=== PATIENT | female | born 1960 | race Caucasian/White ===

== ENCOUNTER 2023-06-17 08:07 | Observation (INO) | payer MEDICARE, MEDICAID, SELFPAY ==
[2023-06-17] VITALS (10 sets, daily range): BP systolic 100–138; BP diastolic 40–82; PULSE 64–90; RESP 14–18; TEMP 36.8–36.9; O2SAT 94–99; BMI 26.6; BMI 25.8
--- NOTE | 2023-06-17 08:13 | RAD_ITS ---
STUDY: X-RAY CHEST REASON FOR EXAM: Female, 63 years old. Chest pain TECHNIQUE: Single AP portable view of the chest. COMPARISON: None. FINDINGS: EKG electrodes are seen. The lungs are clear and expanded. There is no demonstrated pleural abnormality. Normal size heart. Normal mediastinum and sindhu. Normal visualized pulmonary arteries. There is atherosclerotic calcification of the aortic arch with tortuosity. Normal visualized thoracic spine. The patient is status post laminectomy and fusion in the cervical spine. There is no demonstrated abnormality of the visualized soft tissue structures of the upper abdomen. RAD/Chest 1 View (Portable) IMPRESSION: No acute abnormality is seen. Electronically Signed: Tian Ansari MD at 10:07 EDT ,
--- NOTE | 2023-06-17 08:14 | EX.ED.DYSGE1 ---
HPI History of Present Illness Chief Complaint: General Illness [facility] Medical History (Updated 06/17/23 @ 08:26 by Conchita Rasmussen) Anxiety Chronic back pain Chronic neck pain COPD (chronic obstructive pulmonary disease) Depression Hx of renal calculi Home Medications albuterol sulfate 2.5 mg/3 mL (0.083 %) solution for nebulization 2.5 mg inhalation Q6H PRN SHORTNESS OF BREATH/WHEEZING 06/17/23 [History Last Taken Unknown] albuterol sulfate 90 mcg/actuation aerosol inhaler 2 puff inhalation Q4H PRN SHORTNESS OF BREATH/WHEEZING 06/17/23 [History Last Taken Unknown] budesonide-formoterol HFA 160 mcg-4.5 mcg/actuation aerosol inhaler (Symbicort) 1 puff inhalation Q12H SHORTNESS OF BREATH 06/17/23 [History Last Taken Unknown] bupropion HCl 150 mg 24 hr tablet, extended release 150 mg PO DAILY DEPRESSION 06/17/23 [History Last Taken Unknown] celecoxib 100 mg capsule 100 mg PO TID ANTI-INFLAMMATORY 06/17/23 [History Last Taken Unknown] citalopram 20 mg tablet 20 mg PO DAILY DEPRESSION 06/17/23 [History Last Taken Unknown] dapagliflozin propanediol 10 mg tablet (Farxiga) 10 mg PO DAILY BLOOD SUGARS 06/17/23 [History Last Taken Unknown] fenofibrate nanocrystallized 48 mg tablet 48 mg PO DAILY CHOLESTEROL 06/17/23 [History Last Taken Unknown] insulin glargine 100 unit/mL (3 mL) subcutaneous pen (Lantus Solostar U-100 Insulin) unit subcut 06/17/23 [History Last Taken Unknown] losartan 50 mg tablet 50 mg PO DAILY BLOOD PRESSURE 06/17/23 [History Last Taken Unknown] metformin 1,000 mg tablet 1,000 mg PO BID BLOOD SUGARS 06/17/23 [History Last Taken Unknown] omeprazole 20 mg capsule,delayed release 20 mg PO DAILY ACID REFLUX 06/17/23 [History Last Taken Unknown] simvastatin 10 mg tablet 10 mg PO DAILY CHOLESTEROL 06/17/23 [History Last Taken Unknown] tizanidine 4 mg tablet 4 mg PO Q8H MUSCLE SPASMS 06/17/23 [History Last Taken Unknown] Allergy/AdvReac Type Severity Reaction Status Date / Time codeine Allergy Intermediate Rash Verified 06/17/23 08:28 Sulfa (Sulfonamide Allergy Rash Verified 06/17/23 08:28 Antibiotics) Family History (Updated 06/17/23 @ 08:27 by Conchita Rasmussen) Other Back pain with history of spinal surgery Social History Smoking Status: Current every day smoker tobacco type: cigarettes EXAM Physical Exam Const Vital Signs: 06/17/23 08:10 06/17/23 08:15 06/17/23 09:02 Temperature 98.4 F 98.4 F Temperature Source Oral Oral Pulse Rate 76 73 Respiratory Rate 18 18 Respiratory Pattern Normal Blood Pressure 123/52 H 134/61 H Blood Pressure Mean 75 85 Pulse Ox 96 99 Oxygen Delivery Method Room Air Room Air 06/17/23 10:23 Temperature Temperature Source Pulse Rate 90 Respiratory Rate 18 Respiratory Pattern Blood Pressure 100/62 Blood Pressure Mean 74 Pulse Ox 99 Oxygen Delivery Method Room Air MDM MDM MDM Narrative Medical decision making narrative: HISTORY OF PRESENT ILLNESS: 63-year-old female here with concern for acute stroke. Per EMS patient was found to have abrupt change in mental status and left-sided weakness. Per the patient she has had left upper arm sensory changes for the last 48 hours. States she has had left-sided facial drooping for months. States she thought the left-sided upper extremity sensory changes will go away but have not. She also complains of headache, chronic neck pain, chest pain, shortness of breath, abdominal pain, nausea but no vomiting. No bleeding diathesis noted Spoke to Miladis KEN. Notes patient was sweating, almost went down. Notes the patient had slurred speech. Notes blood glucose at the time was 133. She notes the patient complained of decreased chemical applicator strength. the other day, last week, Notes pt had COVID last week. REVIEW OF SYSTEMS: Pertinent positives: Left-sided weakness, headache, chronic neck pain, chest pain, shortness of breath, abdominal pain, nausea Pertinent negatives: Diarrhea, vaginal bleeding or bleeding diathesis PHYSICAL EXAM: Nursing triage notes reviewed, Vital signs reviewed Constitutional: please see mdm HENT: MMM Eyes: Pupils equal round and reactive to light, Extraocular muscles intact Neck: No stridor, no JVD, full neck ROM Lungs: Clear to auscultation, No wheezing or rales. No increased work of breathing, no conversational dyspnea, no accessory muscle use, no nasal flaring. No respiratory distress noted Heart: Regular rate and rhythm, No murmurs, No rubs and No gallops, 2+ distal pulses (radial, femoral, posterior tibial) in all extremities Abdomen: Soft, there is no tenderness, rigidity, rebound or guarding, no obvious peritoneal signs, no palpable pulsatile abdominal masses, no auscultated abdominal bruit : No CVAT Extremities: No edema Neuro: alert, oriented to person place and time, sided facial droop, decree sensation left upper extremity compared to right, no ataxia, no visual field deficits, no obvious slurred speech, no obvious incoordination. Chief 2 for left-sided facial droop andsensory change left upper extremity. Skin: No rash or lesions noted MEDICAL DECISION MAKING: Chief Complaint: Left-sided weakness External records reviewed: No recent ED visits or hospitalizations noted in the chart was i Factors affecting care: Per long-term records, COPD, chronic back pain, diabetes, CKD, status post pacemaker, hypertension, dementia, depression Social determinants of health: custodial resident History obtained from others: EMS, long-term Consults: Internal Medicine MDM Narrative: Was initially hemodynamically stable, afebrile, nontoxic-appearing. Neurologic exam had deficits in the chart in terms of left-sided facial drooping, left upper arm sensory change. Patient was initially endorsed to me by prehospital report as acute neurologic deficits. We activated a code stroke protocol immediately. On arrival patient's last known well was in December between 6 months and 48 hours ago. Stroke team was downgraded as such she is not a candidate for tNK or thrombectomy. I considered the following differential diagnosis: TIA, CVA, focal seizure, metabolic encephalopathy, infectious cephalopathy, ACS, arrhythmia, anemia ICH, ALL IMAGES (IF OBTAINED) HAVE BEEN PERSONALLY REVIEWED AND INTERPRETED BY MYSELF. EKG with normal sinus rhythm, normal axis, normal intervals, no STEMI CBC without leukocytosis, severe anemia, no thrombocytopenia. BMP without significant [place] normalities, there is no anion gap to suggest endorgan hypoperfusion, LFTs show no evidence of hepatobiliary pathology. Troponin is negative, no evidence of myocardial ischemia Lipase is wnl indicating no pancreatic inflammation. CT scan of the head, abdomen pelvis shows no acute abnormalities COVID and flu test is negative I have personally reviewed the patient's chest x-ray. Chest x-ray is unremarkable for pulmonary edema, pneumothorax, pneumonia or focal cardiopulmonary abnormality. Urinalysis is pending at this time The synthesis of the patient's history, physical, vital signs, labs images are concerning for CVA/TIA as well as arrhythmia or other cardiac event. Given her advanced age, several contributory medical problems including diabetes, hyperlipidemia, hypertension I felt the patient be admitted for observation, MRI telemetry monitoring. Discussed this with Dr. Thomas who accepted the patient's case to the PCU. The patient and/or family, caregivers express understanding. The patient and/or family, caregivers agrees with the plan. Shared decision making: I will have a discussion with the patient and or visitors regarding risk/benefits of further testing or admission. They will be made aware of of the risk/benefits inherent in this decision they will be given the opportunity to voice understanding. Total critical care time today provided was at least 0 minutes. This excludes separately billable procedures. Critical care time (if documented) is secondary to the patient having high probability of clinically significant/life threatening deterioration in the patient's condition which required my urgent intervention. Impression: 1. Near syncope 2. Left-sided facial droop 3. Decreased sensation 4. History of hypertension 5. History of type 2 diabetes 6. History of hyperlipidemia Dispo: Med Lab Data Labs: Laboratory Results - last 24 hr 06/17/23 08:20 WBC 5.2 RBC 4.24 Hgb 12.7 Hct 39.7 MCV 93.6 MCH 30.0 MCHC 32.0 RDW Std Deviation 46.1 H RDW Coeff of Elo 13.5 Plt Count 259 MPV 9.6 Immature Gran % (Auto) 0.400 Neut % (Auto) 46.9 L Lymph % (Auto) 39.7 [place] % (Auto) 7.7 Eos % (Auto) 4.1 Baso % (Auto) 1.2 H Absolute Neuts (auto) 2.4 Absolute Lymphs (auto) 2.05 Nucleated RBC % 0 Sodium 142 Potassium 4.4 Chloride 112 H Carbon Dioxide 26.0 Anion Gap 4 L BUN 26 H Creatinine 1.15 H Estim Creat Clear Calc 46.66 Est GFR (MDRD) Af Amer 61 Est GFR (MDRD) Non-Af 51 L BUN/Creatinine Ratio 22.6 H Glucose 141 H Calcium 9.4 Total Bilirubin 0.50 Direct Bilirubin 0.14 AST 16 ALT 20 Alkaline Phosphatase 63 Troponin I High Sens 5 B-Natriuretic Peptide 21.6 Total Protein 7.3 Albumin 3.9 Globulin 3.4 Lipase 46 Radiography Diagnostic Testing: Clinical Impression(s) from Imaging Studies Chest X-Ray 06/17/23 08:13 IMPRESSION: No acute abnormality is seen. Electronically Signed: Tian Ansari MD at 10:07 EDT , Abdomen/Pelvis CT 06/17/23 09:06 IMPRESSION: Status post cholecystectomy. Nonobstructive calculus in the midpole of the right kidney. Electronically Signed: Tian Ansari MD at 10:06 EDT , Brain CT 06/17/23 09:06 IMPRESSION: Chronic involutional changes of the brain. Electronically Signed: Tian Ansari MD at 9:54 EDT , Discharge Plan Triage Chief Complaint: General Illness Other Complaint: Stroke Alert ED Provider: Jed Maurer Dx/Rx/DC Orders Prescriptions: No Action losartan 50 mg tablet 50 mg PO DAILY albuterol sulfate 2.5 mg /3 mL (0.083 %) solution for nebulization 2.5 mg inhalation Q6H PRN (Reason: SHORTNESS OF BREATH/WHEEZING ) tizanidine 4 mg tablet 4 mg PO Q8H simvastatin 10 mg tablet 10 mg PO DAILY citalopram 20 mg tablet 20 mg PO DAILY metformin 1,000 mg tablet 1,000 mg PO BID omeprazole 20 mg capsule,delayed release(DR/EC) 20 mg PO DAILY albuterol sulfate 90 mcg/actuation HFA aerosol inhaler 2 puff INHALATION Q4H PRN (Reason: SHORTNESS OF BREATH/WHEEZING ) celecoxib 100 mg capsule 100 mg PO TID bupropion HCl 150 mg tablet extended release 24 hr 150 mg PO DAILY fenofibrate nanocrystallized 48 mg tablet 48 mg PO DAILY budesonide-formoterol [Symbicort] 160-4.5 mcg/actuation HFA aerosol inhaler 1 puff INHALATION Q12H insulin glargine [Lantus Solostar U-100 Insulin] 100 unit/mL (3 mL) insulin pen SUBCUT Farxiga 10 mg tablet 10 mg PO DAILY Primary Care Provider: Geraldine Jiménez [employer] Referrals: Geraldine Jiménez [employer] T[employer], [facility] [facility] [Primary Care Provider] -
[2023-06-17 08:23] LABS: Absolute Lymphocyte Count 2.05 X10^3/uL (0.83-4.51); Absolute Neutrophil Count 2.4 X10^3/uL (2.0-7.7); Basophil# 0.06 X10^3/uL; Basophil% 1.2 % (0-1); Eosinophil# 0.21 X10^3/uL; Eosinophils% 4.1 % (0-5); Hematocrit 39.7 % (37-47); Hemoglobin 12.7 g/dL (12.0-15.0); Lymphocyte # 2.05 X10^3/ul (0.83-4.51); Lymphocyte % 39.7 % (19-41); Mean Corpuscular Volume 93.6 fL (81-99); Mean Platelet Vol. 9.6 fl (6.2-12.0); Monocyte% 7.7 % (0-10); NRBC Flagged by Analyzer 0 % (0-5); Neutrophil # 2.43 X10^3/uL (2.7-7.7); Neutrophil % 46.9 % (47-70); Platelet Count 259 K/mm3 (150-450); RBC Distribution Width CV 13.5 % (11.6-14.6); RBC Distribution Width SD 46.1 fl (35.1-43.9); Red Blood Count 4.24 M/mm3 (4.2-5.4); White Blood Count 5.2 K/mm3 (4.4-11.0)
[2023-06-17] MEDS: 0.9% Normal Saline (500mL Bag) 500 ML 1000 ML IV (08:36)
[2023-06-17 08:41] LABS: AST(SGOT) 16 U/L (15-37); Alanine Aminotransfer ALT/SGPT 20 U/L (13-56); Albumin, Serum 3.9 g/dL (3.2-5.0); Alkaline Phosphatase 63 U/L (45-117); Anion Gap 4 (5-15); BUN 26 mg/dL (7-18); BUN/Creat Ratio 22.6 RATIO (10-20); Bilirubin, Direct 0.14 mg/dL (0.00-0.30); Calcium,Total 9.4 mg/dL (8.5-10.1); Chloride 112 mmol/L (98-107); Creatinine, Serum 1.15 mg/dL (0.55-1.02); EST Glomerular Filtration Rate 51 mL/min (>60); Est Glom Filt Rate - Afr Amer 61 mL/min (>60); Estimated Creatinine Clearance 46.66 ml/min; Globulin 3.4 g/dL (2.2-4.2); Glucose 141 mg/dL (74-106); Lipase 46 U/L (13-75); Potassium 4.4 mmol/L (3.5-5.1); Protein, Total 7.3 g/dL (6.4-8.2); Sodium Level 142 mmol/L (136-145); Troponin-I HS 5 pg/mL (3.0-54.0)
[2023-06-17 09:02] LABS: BNP,B-Type NATRIURETIC PEPTIDE 21.6 pg/mL (0-100)
--- NOTE | 2023-06-17 09:06 | CT_ITS ---
STUDY: CT ABDOMEN AND PELVIS WITHOUT CONTRAST REASON FOR EXAM: Female, 63 years old. Abdominal pain RADIATION DOSAGE (If Supplied By Facility): CTDIvol = ( 8.68 ) mGy, DLP = ( 431.53 ) mGycm TECHNIQUE: Transaxial images were obtained from the dome of the diaphragm to the symphysis pubis without oral contrast, and without intravenous contrast. Sagittal and coronal images were reconstructed. Individualized dose optimization techniques were used for this CT. COMPARISON: None. FINDINGS: The visualized lung bases are unremarkable. Coronary artery calcification. Normal liver. There are surgical clips in the gallbladder fossa consistent with a prior cholecystectomy. Normal spleen. Normal pancreas. Normal bilateral adrenal glands. Is a 3 mm nonobstructive calculus in the midpole of the right kidney. There is a 1.8 cm cyst in the posterior aspect of the left kidney. Normal visualized stomach. Normal small intestine. Normal colon. The appendix is visualized and appears normal. There is diffuse atherosclerotic calcification of the abdominal aorta and its major visceral branches, without a demonstrated aneurysm. Normal inferior vena cava. Normal retroperitoneum. Normal urinary bladder. There is a right-sided inguinal hernia containing adipose tissue. Disc space narrowing and disc degeneration at the L4-L5 level with a grade 1 anterolisthesis of L4 on L5. CT/Abdomen/Pelvis without Cont IMPRESSION: Status post cholecystectomy. Nonobstructive calculus in the midpole of the right kidney. Electronically Signed: Tian Ansari MD at 10:06 EDT ,
--- NOTE | 2023-06-17 09:06 | CT_ITS ---
STUDY: CT BRAIN WITHOUT CONTRAST REASON FOR EXAM: Female, 63 years old. Left sided facial droop RADIATION DOSAGE (If Supplied By Facility): CTDIvol = ( 44.99 ) mGy, DLP = ( 863.60 ) mGycm TECHNIQUE: Transaxial CT imaging of the brain was performed without administration of intravenous contrast material. Individualized dose optimization techniques were used for this CT. COMPARISON: No relevant priors. FINDINGS: Normal soft tissue structures. Normal calvarium. There is mild cerebral atrophy with widening of the extra-axial spaces and ventricular dilatation. There are areas of decreased attenuation within the white matter tracts of the supratentorial brain, consistent with microvascular disease changes. Normal basal ganglia and thalami. Normal brainstem. Normal cerebellum. There is no intracranial hemorrhage. There are no findings of an acute ischemic infarction. Normal visualized paranasal sinuses. CT/Brain/Head without Contrast IMPRESSION: Chronic involutional changes of the brain. Electronically Signed: Tian Ansari MD at 9:54 EDT ,
--- NOTE | 2023-06-17 11:05 | PCM.HP.STD ---
[facility] Date of Admission: 06/17/23 Date of Service: 06/17/23 Chief Complaint: Confusion, near syncope HPI Narrative DOMINIK SCHULER, is a 63 F with a history of chronic pain, tobacco use, COPD, GERD, urinary disorder with bladder stimulator, hypertension, kidney stones, diabetes, depression, multiple back and neck surgeries who presented to [facility] 06/17/2023 from her assisted living facility for an episode of near syncope and possibly slurred speech. Patient alert and answering questions but inconsistent historian. Per report she had been at SNF and had an episode where she was sweaty and looked like she would pass out and had some slurred speech leading to her ER admission. She was initially a stroke alert exam is also some left facial droop however stroke alert canceled as this has been going on for possibly months and some left upper extremity sensory changes for several days. Has multiple somatic complaints. In the ED CT scan negative for acute stroke however given her facial droop and concern with slurred speech and altered mental status briefly hospitalist contacted for admission for stroke rule out. Patient evaluated at bedside and reported to me that she had been at the assisted living facility this morning and went downstairs to smoke and while she was sitting outside she felt woozy and when she went inside she had a hard time figuring out where she was and felt like crap but that she is feeling better at time of exam. Did say she might of felt a little lightheaded or dizzy but mostly was confused and out of it for that span of time but feels that part has resolved. She reports the left side of her face is intermittently lazy and sometimes does not move as well as others, feels somewhat generally weak and has right back/hip pain that she attributes to a bladder stimulator that has been bothering her since she fell 10 months ago and reports she is supposed to see a specialist at [facility] 06/21/2023. Denies any chest pain or shortness of breath at this time. Reports she had a diagnosis of COVID last Wednesday however a repeat test was negative and she reports she has never had symptoms. Patient's other complaints primarily pain complaints, also reports having dark urine and reports burning on urination. [facility] Medical History (Updated 06/17/23 @ 11:[address] Bree Thomas MD) Anxiety Chronic back pain Chronic neck pain COPD (chronic obstructive pulmonary disease) Depression Diabetes mellitus, type 2 GERD (gastroesophageal reflux disease) HTN (hypertension) Hx of renal calculi Home Medications acetaminophen 500 mg tablet (Acetaminophen Extra Strength) 1,000 mg PO TID PAIN 06/17/23 [History Last Taken 06/16/23] albuterol sulfate 2.5 mg/3 mL (0.083 %) solution for nebulization 2.5 mg inhalation Q8H PRN SHORTNESS OF BREATH/WHEEZING 06/17/23 [History Last Taken Unknown] aspirin 81 mg tablet,delayed release (Adult Aspirin Regimen) 81 mg PO DAILY HEART HEALTH 06/17/23 [History Last Taken 06/16/23] budesonide-formoterol HFA 160 mcg-4.5 mcg/actuation aerosol inhaler (Symbicort) 2 puff inhalation BID SHORTNESS OF BREATH 06/17/23 [History Last Taken 06/16/23] bupropion HCl 150 mg 24 hr tablet, extended release 150 mg PO DAILY DEPRESSION 06/17/23 [History Last Taken 06/16/23] celecoxib 100 mg capsule 100 mg PO TID ANTI-INFLAMMATORY 06/17/23 [History Last Taken 06/16/23] cholecalciferol (vitamin D3) 125 mcg (5,000 unit) tablet (Vitamin D3) 125 mcg PO TU SUPPLEMENT 06/17/23 [History Last Taken 06/16/23] citalopram 20 mg tablet 20 mg PO DAILY DEPRESSION 06/17/23 [History Last Taken 06/16/23] dapagliflozin propanediol 10 mg tablet (Farxiga) 10 mg PO DAILY BLOOD SUGARS 06/17/23 [History Last Taken 06/16/23] fenofibrate nanocrystallized 48 mg tablet 48 mg PO DAILY CHOLESTEROL 06/17/23 [History Last Taken 06/16/23] insulin glargine 100 unit/mL (3 mL) subcutaneous pen (Lantus Solostar U-100 Insulin) 40 unit subcut QHS DIABETES 06/17/23 [History Last Taken 06/16/23] losartan 50 mg tablet 50 mg PO DAILY BLOOD PRESSURE 06/17/23 [History Last Taken 06/16/23] metformin 1,000 mg tablet 1,000 mg PO BID BLOOD SUGARS 06/17/23 [History Last Taken 06/16/23] omeprazole 20 mg capsule,delayed release 20 mg PO DAILY ACID REFLUX 06/17/23 [History Last Taken 06/16/23] polyethylene glycol 3350 17 gram oral powder packet (ClearLax) 17 g PO DAILY CONSTIPATION 06/17/23 [History Last Taken 06/16/23] quercetin 500 mg capsule 500 mg PO BID SUPPLEMENT 06/17/23 [History Last Taken 06/16/23] simvastatin 10 mg tablet 10 mg PO QHS CHOLESTEROL 06/17/23 [History Last Taken 06/16/23] tiotropium bromide 18 mcg capsule with inhalation device (Spiriva with HandiHaler) 1 cap inhalation DAILY SHORTNESS OF BREATH/WHEEZING 06/17/23 [History Last Taken 06/16/23] tizanidine 4 mg tablet 4 mg PO TID MUSCLE SPASMS 06/17/23 [History Last Taken 06/16/23] Allergy/AdvReac Type Severity Reaction Status Date / Time codeine Allergy Intermediate Rash Verified 06/17/23 08:28 Sulfa (Sulfonamide Allergy Rash Verified 06/17/23 08:28 Antibiotics) Family History (Updated 06/17/23 @ 08:27 by Conchita Rasmussen) Other Back pain with history of spinal surgery Social History Smoking Status: Current every day smoker tobacco type: cigarettes ROS ROS Narrative General: Denies fever/chills but feels generally unwell HENT: Reports chronic allergies EYES: Denies changes in vision Resp: Denies cough, denies shortness of breath Cardiac: Denies chest pain GI: Not presently endorsing nausea or vomiting : Reports dark urine and burning on urination Extremity: Denies swelling MSK: Diffuse weakness Neuro: Feels the left side of her face is lazy Heme: Has some petechial areas on bilateral arms Skin: As above Psychiatric: No complaints voiced Vital Signs Vital Signs Vital Signs: 06/17/23 08:10 06/17/23 08:15 06/17/23 09:02 Temperature 98.4 F 98.4 F Temperature Source Oral Oral Pulse Rate 76 73 Respiratory Rate 18 18 Respiratory Pattern Normal Blood Pressure 123/52 H 134/61 H Blood Pressure Mean 75 85 Pulse Ox 96 99 Oxygen Delivery Method Room Air Room Air 06/17/23 10:23 Temperature Temperature Source Pulse Rate 90 Respiratory Rate 18 Respiratory Pattern Blood Pressure 100/62 Blood Pressure Mean 74 Pulse Ox 99 Oxygen Delivery Method Room Air Weight Weight: 59.8 kg Body Mass Index (BMI) 26.6 Physical Exam Narrative General: Alert, oriented, no apparent distress HEENT: Atraumatic, when talking does not appear to have significant left-sided facial droop but on testing cranial nerves seems to have more drooping on left side of mouth, had difficulty following instruction to puff up cheeks but no air escape during attempt Eyes: Anicteric, normal conjunctiva, extraocular movements grossly intact Neck: Supple Respiratory: Clear to auscultation bilaterally, normal respiratory effort Cardiovascular: Regular rate and rhythm GI: Soft, nontender, nondistended Extremities: No edema Musculoskeletal: Moving all extremities, had poor effort/inconsistent effort when testing strength in upper extremities Neuro: Cranial nerves II through XII intact aside from above, Skin: No rashes appreciated Psych: Some scattered petechiae on tops of arms Results Lab / Micro Data 06/17/23 08:20 06/17/23 08:20 Labs: Laboratory Results - last 24 hr 06/17/23 08:20: WBC 5.2, RBC 4.24, Hgb 12.7, Hct 39.7, MCV 93.6, MCH 30.0, MCHC 32.0, RDW Std Deviation 46.1 H, RDW Coeff of Elo 13.5, Plt Count 259, MPV 9.6, Immature Gran % (Auto) 0.400, Neut % (Auto) 46.9 L, Lymph % (Auto) 39.7, [place] % (Auto) 7.7, Eos % (Auto) 4.1, Baso % (Auto) 1.2 H, Absolute Neuts (auto) 2.4, Absolute Lymphs (auto) 2.05, Nucleated RBC % 0, Sodium 142, Potassium 4.4, Chloride 112 H, Carbon Dioxide 26.0, Anion Gap 4 L, BUN 26 H, Creatinine 1.15 H, Estim Creat Clear Calc 46.66, Est GFR (MDRD) Af Amer 61, Est GFR (MDRD) Non-Af 51 L, BUN/Creatinine Ratio 22.6 H, Glucose 141 H, Calcium 9.4, Total Bilirubin 0.50, Direct Bilirubin 0.14, AST 16, ALT 20, Alkaline Phosphatase 63, Troponin I High Sens 5, B-Natriuretic Peptide 21.6, Total Protein 7.3, Albumin 3.9, Globulin 3.4, Lipase 46 Micro: Microbiology 06/17/23 08:40 Nasal Secretion SARS-CoV-2 & FLU Antigen (Rapid) - Final Radiology Impression Chest X-Ray 06/17/23 08:13 IMPRESSION: No acute abnormality is seen. Electronically Signed: Tian Ansari MD at 10:07 EDT , Abdomen/Pelvis CT 06/17/23 09:06 IMPRESSION: Status post cholecystectomy. Nonobstructive calculus in the midpole of the right kidney. Electronically Signed: Tian Ansari MD at 10:06 EDT , Brain CT 06/17/23 09:06 IMPRESSION: Chronic involutional changes of the brain. Electronically Signed: Tian Ansari MD at 9:54 EDT , Assessment & Plan Assessment/Plan (1) Neurologic abnormality: (2) Diabetes mellitus, type 2: (3) HTN (hypertension): (4) GERD (gastroesophageal reflux disease): (5) Chronic back pain: (6) COPD (chronic obstructive pulmonary disease): (7) Depression: (8) Hx of renal calculi: PLAN: Plan #Neurological deficits, left-sided facial droop and altered mental status -Admit to tele -out of window for intervention -CT head w/ chronic changes in ED -MRI/CTA -NIH q4hr -asa, statin -Echo w/ bubble study -PT/OT/Speech eval -Hold BP medications to allow for permissive hypertension for 24 hours unless SBP greater than 220 or DBP greater than 120 or until stroke is ruled out #Presyncope -Patient possibly with presyncopal episode earlier that had very difficult time describing this further, echocardiogram, orthostats -Also reports she gets confusion when she has urinary tract infection and has had burning on urination so obtain UA #AURA versus CKD unclear subtype -Slight elevation creatinine, hold home celecoxib, continue to monitor #GERD -Continue PPI #Bladder stimulator -Supposed to see a specialist at [facility] for this on the -Does have some pain in the area which has been chronic for 10 months we will obtain x-ray #Type 2 diabetes mellitus -Glucose checks and sliding scale insulin -Long-acting insulin and Farxiga #Mood disorder NOS -Continue home Wellbutrin and Celexa #Chronic pain -Including neck and back pain -Reportedly had been taken off of her gabapentin -Takes tizanidine, will make this as needed and will add Tylenol -Supportive care #DVT ppx: Lovenox subcu Bree Thomas MD Time spent in the patient's overall evaluation,decision-making process, review of diagnostic data, adjustment of management, discussion with other providers, nursing nursing and ancillary staff involved in patient's care documentation, 60 minutes Charges/Coding Visit Charges Inpatient E&M: 16809 Init Hosp L2
--- NOTE | 2023-06-17 11:23 | ECHOD_ITS ---
Reason For Study: TIA/STROKE Procedure This was a 2D Doppler, Color Flow transthoracic echocardiogram. Exam performed portable in patient room. Left Ventricle Normal LV size. Mild concentric left ventricular hypertrophy. The left ventricular ejection fraction is 65 %. Normal diastology for age. Right Ventricle Normal right ventricle. Atria The left and right atria are normal. Bubble contrast study is positive for PFO. Mitral Valve Trivial mitral valve insufficiency. Tricuspid Valve Trivial tricuspid valve insufficiency. Unable to estimate RV systolic pressure due to insufficient tricuspid regurgitant envelope. Aortic Valve Trisinus/trileaflet aortic valve. Trivial aortic valve insufficiency. Pulmonic Valve The pulmonic valve is not well visualized. Great Vessels The aortic root is not well visualized. Pericardium/Pleural No pericardial effusion. Medication Performed a rapid injection of agitated mix of 9 cc saline and 1cc air to assess for atrial septal defect. MMode/2D Measurements & Calculations LVIDd: 3.8 cm IVSd: 1.1 cm LAV(MOD-bp): 25.3 ml LVIDs: 2.1 cm LVPWd: 1.2 cm FS: 44.1 % LAV(MOD-bp) Indexed: 16.8 ml/m2 LAV(MOD-sp2): 27.3 ml LAV(MOD-sp4): 21.8 ml SV(MOD-sp4): 37.2 ml SV(sp4-el): 37.7 ml LVAd ap4: 20.8 cm2 LVLd ap4: 6.9 cm EDV(MOD-sp4): 51.9 ml EDV(sp4-el): 52.8 ml LVAs ap4: 10.0 cm2 LVLs ap4: 5.6 cm ESV(MOD-sp4): 14.7 ml ESV(sp4-el): 15.2 ml EF(MOD-sp4): 71.7 % EF(sp4-el): 71.3 % LA dimension(2D): 2.6 cm LA A4 area: 11.2 cm2 RA A4 area: 10.0 cm2 TAPSE: 2.2 cm Time Measurements MV dec time: 0.22 sec Doppler Measurements & Calculations MV E max eliazar: 71.8 cm/sec Lat Peak E' Eliazar: 12.5 cm/sec Med Peak E' Eliazar: 8.7 cm/sec MV A max eliazar: 60.8 cm/sec E/E' lat: 5.7 E/E' med: 8.2 MV E/A: 1.2 MV V2 max: 72.6 cm/sec MV dec slope: 325.6 cm/sec2 Ao V2 max: 153.8 cm/sec MV max P.1 mmHg Ao max P.5 mmHg MV V2 mean: 45.6 cm/sec Ao V2 mean: 104.0 cm/sec MV mean P.95 mmHg Ao mean P.0 mmHg MV V2 VTI: 23.3 cm Ao V2 VTI: 38.3 cm AV (velocity ratio): 0.66 LV V1 max: 96.6 cm/sec PA V2 max: 82.0 cm/sec LV V1 max P.7 mmHg PA V2 mean: 59.2 cm/sec LV V1 mean P.2 mmHg LV V1 mean: 69.3 cm/sec LV V1 VTI: 25.2 cm ECHO/Echo Complete Interpretation Summary Mild concentric left ventricular hypertrophy. The left ventricular ejection fraction is 65 %. Bubble contrast study is positive for PFO. Ordering Physician: Bree Thomas Referring Physician: JENNIFER HOLLAND Performed By: Daphne Best RCS
[2023-06-17 11:45] LABS: Mucous, Urine 0 SEEN /hpf (<or=2+)
[2023-06-17 11:49] LABS: Color, Urine Yellow (Yellow); Glucose, Dipstick 1000 mg/dl (Normal); Ketone-Dipstick Negative (Negative); Leukocyte Esterase-Dipstick 100 /ul (Negative); Nitrite-Dipstick Negative (Negative); Occult Blood-Urine 10 /ul (Negative); Protein-Dipstick 15 mg/dl (Negative); Urine Bilirubin Dipstick Negative (Negative); Urine Clarity Sl. Cloudy (Clear); Urine Urobilinogen Normal (Normal)
--- NOTE | 2023-06-17 11:50 | CT_ITS ---
STUDY: CTA HEAD AND NECK WITH CONTRAST REASON FOR EXAM: Female, 63 years old. Neuro deficit, subacute, stroke suspected -- not candidate for intervention RADIATION DOSAGE (If Supplied By Facility): CTDIvol = ( 16.86 ) mGy, DLP = ( 660.81 ) mGycm TECHNIQUE: CT angiography was performed with a multi-detector CT scanner. Data acquisition was obtained from the skull base through the vertex following intravenous administration of 100ML ISOVUE 370. MIP images were reconstructed from the axial data set. Post-processing of the angiographic images was performed, with multiplanar reformation and 3D reconstruction. Individualized dose optimization techniques were used for this CT. COMPARISON: No relevant priors. FINDINGS: Normal bilateral petrous carotid arteries. There is calcified plaque formation of the right cavernous carotid artery, without a cross-sectional luminal stenosis. There is calcified plaque formation of the left cavernous carotid artery, without a cross-sectional luminal stenosis. Normal right A1 segments of the anterior cerebral artery. Normal left A1 segments of the anterior cerebral artery. Normal intact anterior communicating artery (ACOM). Normal bilateral A2 segments of the anterior cerebral arteries. Normal right M1 and M2 segments of the middle cerebral arteries, with a normal M1 bifurcation. Normal left M1 and M2 segments of the middle cerebral arteries, with a normal M1 bifurcation. Normal right posterior communicating artery (PCOM). Normal left posterior communicating artery (PCOM). Normal bilateral vertebral arteries. Normal basilar artery with a normal basilar bifurcation. The visualized bilateral superior cerebellar (SCA) arteries are normal. Normal bilateral P1, P2 and visualized P3 segments of the posterior cerebral arteries. There is no demonstrated aneurysm of the [place]. There is no demonstrated abnormality of the visualized brain. AORTIC ARCH: There is atherosclerotic calcific plaque formation of the aortic arch and great vessels arising from the aortic arch, without a hemodynamically significant stenosis. There is a normal origin of the brachiocephalic, left common carotid, and left subclavian arteries. Coronary artery calcification. RIGHT CAROTID ARTERIES: Normal right common carotid artery (CCA). Normal right common carotid bulb. There is moderate atherosclerotic plaque formation of the origin of the right internal carotid artery with an estimated stenosis of 50-69% stenosis. Normal visualized cervical portion of the right internal carotid artery. Normal origin of the right external carotid artery (ECA). LEFT CAROTID ARTERIES: Normal left common carotid artery (CCA). Normal left common carotid bulb. There is mild atherosclerotic plaque formation of the origin of the left internal carotid artery with less than 50% cross sectional diameter stenosis. Normal visualized cervical portion of the left internal carotid artery. Normal origin of the left external carotid artery (ECA). VERTEBRAL ARTERIES: Normal bilateral vertebral arteries. CT/CTA Head AND Neck W/ Contrast IMPRESSION: Calcific plaque at the origin of the right internal carotid artery causing getting 50 and 69% stenosis. Minimal plaque at the origin of the left internal carotid artery causing less than 50% narrowing. Electronically Signed: Tian Ansari MD at 12:23 EDT ,
[2023-06-17 12:10] LABS: Bacteria 2+ /hpf (None Seen); Red Blood Cells-Urine 0-5 SEEN /hpf (0-5); Squamous Epithelial Cells - UA 0-5 SEEN /hpf (5-10); White Blood Cells 25-50 SEEN /hpf (0-5); Yeast-Urine RARE /hpf (None Seen)
[2023-06-17] MEDS: Contrast Allergy Safety Check IV (12:37)
[2023-06-17 13:10] LABS: Amphetamine Urine VISTA NEGATIVE (<1000 ng/mL); Barbiturate Urine VISTA NEGATIVE (< 200 ng/mL); Benzodiazepine Urine VISTA NEGATIVE (< 200 ng/mL); Cocaine Urine VISTA NEGATIVE (< 300 ng/mL); Ecstacy Urine VISTA POSITIVE (< 500 ng/mL); Methadone Urine VISTA NEGATIVE (< 300 ng/mL); PCP Urine VISTA NEGATIVE (< 25 ng/mL); THC Urine VISTA NEGATIVE (< 50 ng/mL); Vista UDS pH Range 5
--- NOTE | 2023-06-17 13:48 | RAD_ITS ---
STUDY: X-RAY - PELVIS AND RIGHT HIP REASON FOR EXAM: Female, 63 years old. Lower back pain. TECHNIQUE: 3 views of the pelvis and hip. COMPARISON: None. FINDINGS: There is a non-specific bowel gas pattern. Contrast within the bladder and bilateral ureters. Epidural catheter terminating in the right lower sacrum. Normal bilateral iliac wings, sacroiliac joints and visualized sacrum. Normal bilateral superior and inferior pubic rami. Normal pubic symphysis. Normal bilateral ischial tuberosities. Normal visualized femoral head. Normal acetabulum. Normal hip joint. RAD/HIP, UNI W/ Pelvis 2-3 Views IMPRESSION: No acute abnormality of the visualized pelvis or proximal femurs. Electronically Signed: Joesph Pennington MD at 14:28 EDT ,
[2023-06-17 16:40] LABS: Bedside Glucose 97 mg/dL (74-106)
[2023-06-17] MEDS: Ipratropium/Albuterol Sulfate 3 ML AMPUL.NEB INHALATION (20:11)
[2023-06-17] MEDS: Budesonide Respules 0.5 MG/2 ML AMPUL.NEB. INHALATION (20:11)
[2023-06-17] MEDS: Atorvastatin Calcium 80 MG Tablet PO (21:38)
[2023-06-17 22:46] LABS: Bedside Glucose 114 mg/dL (74-106)
[2023-06-18] VITALS (9 sets, daily range): BP systolic 102–125; BP diastolic 43–78; PULSE 63–86; RESP 12–20; TEMP 36.6–37.1; O2SAT 94–98; BMI 25.8
[2023-06-18 01:44] LABS: Bedside Glucose 121 mg/dL (74-106)
[2023-06-18 07:04] LABS: Bedside Glucose 149 mg/dL (74-106)
[2023-06-18] MEDS: Budesonide Respules 0.5 MG/2 ML AMPUL.NEB. INHALATION ×2 (07:24→20:11)
[2023-06-18] MEDS: Ipratropium/Albuterol Sulfate 3 ML AMPUL.NEB INHALATION ×2 (07:24→20:11)
[2023-06-18 07:40] LABS: Absolute Lymphocyte Count 1.93 X10^3/uL (0.83-4.51); Absolute Neutrophil Count 2.5 X10^3/uL (2.0-7.7); Basophil# 0.05 X10^3/uL; Eosinophil# 0.23 X10^3/uL; Eosinophils% 4.4 % (0-5); Hematocrit 38.6 % (37-47); Hemoglobin 12.2 g/dL (12.0-15.0); Lymphocyte # 1.93 X10^3/ul (0.83-4.51); Lymphocyte % 37.2 % (19-41); Mean Corp Hgb Conc 31.6 g/dL (32-36); Mean Corpuscular Hgb 29.8 pg (27.0-32.0); Mean Corpuscular Volume 94.1 fL (81-99); Mean Platelet Vol. 9.8 fl (6.2-12.0); Monocyte# 0.43 X10^3/uL; Monocyte% 8.3 % (0-10); NRBC Flagged by Analyzer 0 % (0-5); Neutrophil # 2.54 X10^3/uL (2.7-7.7); Neutrophil % 48.9 % (47-70); Platelet Count 226 K/mm3 (150-450); RBC Distribution Width CV 13.4 % (11.6-14.6); RBC Distribution Width SD 46.4 fl (35.1-43.9); White Blood Count 5.2 K/mm3 (4.4-11.0)
[2023-06-18 08:17] LABS: Anion Gap 5 (5-15); BUN 26 mg/dL (7-18); BUN/Creat Ratio 24.1 RATIO (10-20); Chloride 108 mmol/L (98-107); Cholesterol 146 mg/dL (200); Creatinine, Serum 1.08 mg/dL (0.55-1.02); EST Glomerular Filtration Rate 54 mL/min (>60); Est Glom Filt Rate - Afr Amer 66 mL/min (>60); Estimated Creatinine Clearance 48.18 ml/min; Glucose 125 mg/dL (74-106); High Density Lipoprotein 43 mg/dL; Potassium 4.4 mmol/L (3.5-5.1); Sodium Level 139 mmol/L (136-145); Thyroid Stim Hormone (TSH) 3.25 uIU/mL (0.358-3.74); Triglycerides 149 mg/dL; Very Low Density Lipoprotein 30 mg/dL (5-40)
[2023-06-18] MEDS: Fenofibrate 48 MG Tablet PO (08:37)
[2023-06-18] MEDS: Polyethylene Glycol 3350 17 GM PACKET PO (08:37)
[2023-06-18] MEDS: buPROPion (XL) 150 MG TABLET.XL PO (08:37)
[2023-06-18] MEDS: Pantoprazole Sodium 20 MG Tablet PO (08:37)
[2023-06-18] MEDS: Aspirin E.C. 81 MG Tablet PO (08:37)
[2023-06-18] MEDS: tiZANidine HCl 2 MG Tablet 4 MG PO (08:38)
[2023-06-18] MEDS: Empagliflozin 25 MG Tablet PO (08:38)
[2023-06-18] MEDS: Enoxaparin 40 MG/0.4 ML Syringe SC (08:38)
[2023-06-18] MEDS: Citalopram 20 MG Tablet PO (08:38)
[2023-06-18] MEDS: Acetaminophen 325 MG Tablet 650 MG PO (08:41)
[2023-06-18 09:22] LABS: Hemoglobin A1c 5.5 % (3.8-5.6)
[2023-06-18 11:41] LABS: Bedside Glucose 136 mg/dL (74-106)
--- NOTE | 2023-06-18 12:49 | CASEMGMT ---
Patient is from [facility]. SW spoke with patient and her plan is to return to [facility]. Patient will need transportation at d/c. Plan: d/c back to [facility] Nedra ARAUZ
--- NOTE | 2023-06-18 14:53 | CASEMGMT ---
Met with patient to complete ORTIZ form. ORTIZ form explained to patient who voiced understanding and signed form. Original form placed in pt?s chart and copy provided to patient. Leonela William, Discharge Planning Asst.
--- NOTE | 2023-06-18 15:54 | PCM.PN.HOSP ---
Reason for Visit Reason for Visit: Diagnoses Type 2 diabetes mellitus without complications (06/17/23) Depression, unspecified (06/17/23) Other chronic pain (06/17/23) Essential (primary) hypertension (06/17/23) Chronic obstructive pulmonary disease, unspecified (06/17/23) Gastro-esophageal reflux disease without esophagitis (06/17/23) Dorsalgia, unspecified (06/17/23) Other symptoms and signs involving the nervous system (06/17/23) Personal history of urinary calculi (06/17/23) Subjective Subjective Patient feeling better than yesterday, still has some intermittent left lower facial droop Objective Data Objective Data Vital Signs: Vital Signs Temp Pulse Resp BP Pulse Ox O2 Del Method 98.5 F 77 16 123/49 H 98 Room Air 06/18/23 12:03 06/18/23 12:03 06/18/23 12:03 06/18/23 12:03 06/18/23 12:03 06/18/23 12:03 Oxygen Delivery Method Room Air Weight: 58 kg Body Mass Index (BMI) 25.8 Intake & Output: Intake and Output for Last 24 Hours 06/16/23 06/17/23 06/18/23 23:59 23:59 23:59 Intake Total 620 / 720 100 / 100 Balance 620 / 720 100 / 100 Lab / Micro Data 06/18/23 07:02 06/18/23 07:02 Labs: Laboratory Results - last 24 hr 06/17/23 16:09: POC Glucose 97 06/17/23 21:35: POC Glucose 114 H 06/18/23 01:18: POC Glucose 121 H 06/18/23 06:19: POC Glucose 149 H 06/18/23 07:02: WBC 5.2, RBC 4.10 L, Hgb 12.2, Hct 38.6, MCV 94.1, MCH 29.8, MCHC 31.6 L, RDW Std Deviation 46.4 H, RDW Coeff of Elo 13.4, Plt Count 226, MPV 9.8, Immature Gran % (Auto) 0.200, Neut % (Auto) 48.9, Lymph % (Auto) 37.2, [place] % (Auto) 8.3, Eos % (Auto) 4.4, Baso % (Auto) 1.0, Absolute Neuts (auto) 2.5, Absolute Lymphs (auto) 1.93, Nucleated RBC % 0, Sodium 139, Potassium 4.4, Chloride 108 H, Carbon Dioxide 26.0, Anion Gap 5, BUN 26 H, Creatinine 1.08 H, Estim Creat Clear Calc 48.18, Est GFR (MDRD) Af Amer 66, Est GFR (MDRD) Non-Af 54 L, BUN/Creatinine Ratio 24.1 H, Glucose 125 H, Hemoglobin A1c 5.5, Calcium 9.0, Triglycerides 149, Cholesterol 146, LDL Cholesterol 73, VLDL Cholesterol 30, HDL Cholesterol 43, TSH 3.25 06/18/23 11:16: POC Glucose 136 H Micro: Microbiology 06/17/23 13:21 Urine, Clean Catch Urine Culture - Preliminary Gram negative kristen 06/17/23 08:40 Nasal Secretion SARS-CoV-2 & FLU Antigen (Rapid) - Final Radiography Diagnostic Testing: Radiology Impression Echocardiogram 06/17/23 11:23 Interpretation Summary Mild concentric left ventricular hypertrophy. The left ventricular ejection fraction is 65 %. Bubble contrast study is positive for PFO. Ordering Physician: Bree Thomas Referring Physician: JENNIFER HOLLAND Performed By: Daphne Best RCS Physical Exam Narrative General: Alert, oriented, no apparent distress HEENT: Atraumatic, normocephalic Eyes: extraocular movements grossly intact Neck: Supple Respiratory: normal respiratory effort Cardiovascular: no edema appreciated GI: nondistended Extremities: Moving all extremities Neuro: Face seems to move symmetrically when talking to when asked to smile moves right lower face better than left lower face Psych: Cooperative Assessment & Plan Assessment/Plan (1) Neurologic abnormality: (2) Diabetes mellitus, type 2: (3) HTN (hypertension): (4) GERD (gastroesophageal reflux disease): (5) Chronic back pain: (6) COPD (chronic obstructive pulmonary disease): (7) Depression: (8) Hx of renal calculi: PLAN: Plan #Neurological deficits, left-sided facial droop and altered mental status -Admit to tele -out of window for intervention -CT head w/ chronic changes in ED -MRI/CTA -NIH q4hr -asa, statin -Echo w/ bubble study -PT/OT/Speech eval -Hold BP medications to allow for permissive hypertension for 24 hours unless SBP greater than 220 or DBP greater than 120 or until stroke is ruled out -06/18: Found to have PFO, have been unable to get MRI due to bladder stimulator, neurology consulted for input. Consult pending #Urinary tract infection -UA mildly suggestive of UTI but did have symptoms and now urine culture growing organism, awaiting sensitivities -We will place on Zosyn while awaiting sensitivities #Intermittent swallowing difficulty -Evaluated by speech, they recommended outpatient GI consult #Presyncope -Patient possibly with presyncopal episode earlier that had very difficult time describing this further, echocardiogram, orthostats -Also reports she gets confusion when she has urinary tract infection and has had burning on urination so obtain UA -06/18: Feeling better today. Has had no further episodes. #AURA versus CKD unclear subtype -Slight elevation creatinine, hold home celecoxib, continue to monitor -06/18: Creatinine very slightly better today #GERD -Continue PPI #Bladder stimulator -Supposed to see a specialist at [facility] for this on the -Does have some pain in the area which has been chronic for 10 months we will obtain x-ray -06/18: X-ray unremarkable, patient does not have enough information yet for MRI #Type 2 diabetes mellitus -Glucose checks and sliding scale insulin -Long-acting insulin and Farxiga -06/18: A1c 5.5, continue present management #Mood disorder NOS -Continue home Wellbutrin and Celexa #Chronic pain -Including neck and back pain -Reportedly had been taken off of her gabapentin -Takes tizanidine, will make this as needed and will add Tylenol -Supportive care #DVT ppx: Lovenox subcu Bree Thomas MD Time spent in the patient's overall evaluation,decision-making process, review of diagnostic data, adjustment of management, discussion with other providers, nursing nursing and ancillary staff involved in patient's care documentation, 36 minutes Charges/Coding Visit Charges Inpatient E&M: 99486 Subs Hosp L2
[2023-06-18] MEDS: Piperacil/Tazobactam 4.5 GM in 0.9% Normal Saline (100mL MB+) 100 ML IV (15:58)
[2023-06-18] MEDS: Insulin Lispro 100 UNIT/ML INSULN.PEN SC ×2 (16:58→22:00)
[2023-06-18 17:07] LABS: Bedside Glucose 164 mg/dL (74-106)
[2023-06-18] MEDS: Atorvastatin Calcium 80 MG Tablet PO (21:53)
[2023-06-18] MEDS: Insulin Glargine-YFGN 100 UNIT/ML Pen 20 UNIT SC (21:59)
[2023-06-18] MEDS: 0.9% Saline Lock 10 ML Syringe IV (23:22)
[2023-06-18] MEDS: FLUCONAZOLE 150 MG TABLET PO (23:23)
[2023-06-18] MEDS: Piperacil/Tazobactam 3.375 GM in 0.9% Normal Saline (50mL MB+) 50 ML IV (23:25)
[2023-06-19 00:22] LABS: Bedside Glucose 217 mg/dL (74-106)
[2023-06-19 02:09] VITALS: PULSE 71; RESP 24
[2023-06-19] MEDS: Ipratropium/Albuterol Sulfate 3 ML AMPUL.NEB INHALATION ×2 (02:09→07:06)
[2023-06-19 02:39] VITALS: BP 101/53; PULSE 68; RESP 15; TEMP 36.7; O2SAT 95
[2023-06-19 03:24] LABS: Bedside Glucose 140 mg/dL (74-106)
[2023-06-19 03:46] VITALS: BMI 25.8
[2023-06-19 06:36] VITALS: BP 118/63; PULSE 71; RESP 15; TEMP 37; O2SAT 94
[2023-06-19] MEDS: Piperacil/Tazobactam 3.375 GM in 0.9% Normal Saline (50mL MB+) 50 ML IV (06:52)
[2023-06-19 07:01] LABS: Absolute Lymphocyte Count 1.65 X10^3/uL (0.83-4.51); Absolute Neutrophil Count 2.4 X10^3/uL (2.0-7.7); Basophil# 0.04 X10^3/uL; Basophil% 0.9 % (0-1); Eosinophil# 0.17 X10^3/uL; Eosinophils% 3.7 % (0-5); Hematocrit 37.7 % (37-47); Hemoglobin 11.8 g/dL (12.0-15.0); Lymphocyte # 1.65 X10^3/ul (0.83-4.51); Lymphocyte % 35.5 % (19-41); Mean Corp Hgb Conc 31.3 g/dL (32-36); Mean Corpuscular Hgb 29.6 pg (27.0-32.0); Mean Corpuscular Volume 94.7 fL (81-99); Mean Platelet Vol. 9.8 fl (6.2-12.0); Monocyte# 0.41 X10^3/uL; Monocyte% 8.8 % (0-10); NRBC Flagged by Analyzer 0 % (0-5); Neutrophil # 2.37 X10^3/uL (2.7-7.7); Neutrophil % 50.9 % (47-70); Platelet Count 215 K/mm3 (150-450); RBC Distribution Width CV 13.4 % (11.6-14.6); RBC Distribution Width SD 47.3 fl (35.1-43.9); Red Blood Count 3.98 M/mm3 (4.2-5.4); White Blood Count 4.7 K/mm3 (4.4-11.0)
[2023-06-19] MEDS: Budesonide Respules 0.5 MG/2 ML AMPUL.NEB. INHALATION (07:06)
[2023-06-19 07:10] VITALS: PULSE 70; RESP 18; O2SAT 96
[2023-06-19 07:17] LABS: Bedside Glucose 135 mg/dL (74-106)
[2023-06-19 07:41] LABS: Anion Gap 4 (5-15); BUN 30 mg/dL (7-18); BUN/Creat Ratio 25.2 RATIO (10-20); Chloride 109 mmol/L (98-107); Creatinine, Serum 1.19 mg/dL (0.55-1.02); EST Glomerular Filtration Rate 49 mL/min (>60); Est Glom Filt Rate - Afr Amer 59 mL/min (>60); Estimated Creatinine Clearance 43.73 ml/min; Glucose 152 mg/dL (74-106); Potassium 4.5 mmol/L (3.5-5.1); Sodium Level 140 mmol/L (136-145)
[2023-06-19 08:00] VITALS: BP 103/45; PULSE 70; RESP 14; TEMP 36.6; O2SAT 96
[2023-06-19] MEDS: Aspirin E.C. 81 MG Tablet PO (08:08)
[2023-06-19] MEDS: Polyethylene Glycol 3350 17 GM PACKET PO (08:08)
[2023-06-19] MEDS: buPROPion (XL) 150 MG TABLET.XL PO (08:08)
[2023-06-19] MEDS: Enoxaparin 40 MG/0.4 ML Syringe SC (08:08)
[2023-06-19] MEDS: Fenofibrate 48 MG Tablet PO (08:08)
[2023-06-19] MEDS: Pantoprazole Sodium 20 MG Tablet PO (08:08)
[2023-06-19] MEDS: Citalopram 20 MG Tablet PO (08:09)
[2023-06-19] MEDS: Empagliflozin 25 MG Tablet PO (08:09)
[2023-06-19] MEDS: Insulin Lispro 100 UNIT/ML INSULN.PEN SC (10:51)
[2023-06-19 11:15] LABS: Bedside Glucose 172 mg/dL (74-106)
[2023-06-19 13:52] VITALS: BMI 25.8
[2023-06-19 14:00] VITALS: BP 114/46; PULSE 76; RESP 16; TEMP 36.4; O2SAT 96
--- NOTE | 2023-06-19 14:12 | DCINST_ITS ---
Discharge Instructions Diet Discharge Diet: - (DASH diet) Activity Discharge Activity: Return to Normal Activity Follow Up Care Test Results: Test results from this visit will be discussed in further detail at your follow- up appointment, if applicable. Discharge Plan Admission Admit Date/Time: 06/17/23 11:06 Primary Reason for Your Visit: Left sided facial droop Attending Provider: Bree Thomas Primary Care Provider: Geraldine Jiménez MITER GRINDER OPERATOR Instructions Patient Instructions: ED Fall Prevention Additional Instructions / Restrictions: DISCHARGE INSTRUCTIONS PLEASE READ *Please take this with you to your next doctors appointment* -Advised to take aspirin and Plavix together for 21 days and then discontinue aspirin and only take Plavix thereafter -You are noted to have a small hole in your heart, please follow-up with cardiology upon discharge -Please follow-up with neurology upon discharge, please call Dr. Jaimes's office upon discharge to schedule an establish care appointment for your concern for stroke ( [phone]) -Speech therapy recommending outpatient GI consult. You will need to follow-up with Dr. Polanco with GI in his office upon discharge. Please call his office to schedule your appointment (. [phone]) -You will be discharged on 5 more days of Keflex 500 mg 4 times daily -A dose of fluconazole will also be sent to your pharmacy as you have indicated you have yeast infections with antibiotic use -You have been doing well on a lower dose of insulin, 20 units at bedtime, would advise continuing this and monitoring your glucose as low blood glucose at home could mimic stroke symptoms -Your simvastatin has been discontinued and atorvastatin started due to concern for stroke -Additionally your omeprazole has been discontinued and pantoprazole will be sent in instead due to a medication interaction between omeprazole and Plavix, please take the pantoprazole and Plavix. It is importantly do not take pantoprazole and omeprazole together -Celecoxib also discontinued as you are being started on Plavix -Please call your primary care provider's office upon discharge to schedule a hospital follow up within 1 week. -For any concerning signs or symptoms please call 911 or proceed to the nearest emergency department Discharge Orders/Prescriptions Prescriptions: New atorvastatin 80 mg Tablet 80 mg PO QHS 30 Days Qty: 30 0RF fluconazole 150 mg Tablet 150 mg PO X1 PRN (Reason: yeast infection) Qty: 1 0RF clopidogrel [Plavix] 75 mg tablet 75 mg PO DAILY Qty: 30 0RF cephalexin 500 mg capsule 500 mg PO Q6H 5 Days Qty: 20 0RF pantoprazole [Protonix] 40 mg tablet,delayed release (DR/EC) 40 mg PO DAILY Qty: 30 0RF Continued albuterol sulfate 2.5 mg /3 mL (0.083 %) solution for nebulization 2.5 mg inhalation Q8H PRN (Reason: SHORTNESS OF BREATH/WHEEZING ) tizanidine 4 mg tablet 4 mg PO TID citalopram 20 mg tablet 20 mg PO DAILY metformin 1,000 mg tablet 1,000 mg PO BID bupropion HCl 150 mg tablet extended release 24 hr 150 mg PO DAILY fenofibrate nanocrystallized 48 mg tablet 48 mg PO DAILY budesonide-formoterol [Symbicort] 160-4.5 mcg/actuation HFA aerosol inhaler 2 puff INHALATION BID Farxiga 10 mg tablet 10 mg PO DAILY polyethylene glycol 3350 [ClearLax] 17 gram powder in packet 17 g PO DAILY cholecalciferol (vitamin D3) [Vitamin D3] 125 mcg (5,000 unit) tablet 125 mcg PO TU quercetin 500 mg capsule 500 mg PO BID tiotropium bromide [Spiriva with HandiHaler] 18 mcg capsule, w/inhalation device 1 cap inhalation DAILY Rx Instructions: puncture 1 cap using device; one dose = 2 inhalations acetaminophen [Acetaminophen Extra Strength] 500 mg tablet 1,000 mg PO TID aspirin [Adult Aspirin Regimen] 81 mg tablet,delayed release (DR/EC) 81 mg PO DAILY Qty: 21 0RF Changed insulin glargine [Lantus Solostar U-100 Insulin] 100 unit/mL (3 mL) insulin pen 20 unit SUBCUT QHS Qty: 30 0RF Patient Comments: Pt states she sometimes doesn't take this at bedtime if her blood sugar is below 120. Discontinued losartan 50 mg tablet 50 mg PO DAILY Patient Comments: pt not sure if she is currently taking this medication. simvastatin 10 mg tablet 10 mg PO QHS omeprazole 20 mg capsule,delayed release(DR/EC) 20 mg PO DAILY celecoxib 100 mg capsule 100 mg PO TID Referrals / Follow Up: [facility] [Provider Group] ( -You will need to follow-up with cardiology upon discharge, please call the office to schedule your appointment (ph [phone])) Camilo Jaimes MD [Non-Staff -Ordering Privileges] - ( -Please follow-up with neurology upon discharge, please call Dr. Jaimes's office upon discharge to schedule an establish care appointment for your concern for stroke (ph [phone])) Friend,DO Osmani [Med Staff - Active Staff] - Geraldine Jiménez MITER GRINDER OPERATOR, MITER GRINDER OPERATOR-C [Primary Care Provider] - Within 1 Week Disposition Disposition (needs filled in before D/C Order can be placed): Assisted Living
--- NOTE | 2023-06-19 14:14 | PCM.DC.SUM ---
Providers Date of Admission: 06/17/23 Date of Discharge: 06/19/23 Primary Care Physician: RYAN Garcia Reason For Visit: LEFT FACIAL DROOP Diagnosis Discharge Diagnosis (1) Ischemic cerebrovascular accident (CVA): Status: Acute Code(s): I63.9 - Cerebral infarction, unspecified (2) Neurologic abnormality: Status: Acute Code(s): R29.818 - Other symptoms and signs involving the nervous system (3) Diabetes mellitus, type 2: Status: Acute Code(s): E11.9 - Type 2 diabetes mellitus without complications (4) HTN (hypertension): Status: Chronic Code(s): I10 - Essential (primary) hypertension (5) GERD (gastroesophageal reflux disease): Status: Acute Code(s): K21.9 - Gastro-esophageal reflux disease without esophagitis (6) Chronic back pain: Status: Chronic Code(s): M54.9 - Dorsalgia, unspecified; G89.29 - Other chronic pain (7) COPD (chronic obstructive pulmonary disease): Status: Chronic Code(s): J44.9 - Chronic obstructive pulmonary disease, unspecified (8) Depression: Status: Acute Code(s): F32.A - Depression, unspecified (9) Hx of renal calculi: Status: Acute Code(s): Z87.442 - Personal history of urinary calculi Plan #Neurological deficits, left-sided facial droop, concern for ischemic cva #Ecoli UTI #Intermittent swallowing difficulty #Presyncope- resolved #CKD unclear subtype #GERD #Bladder stimulator #Type 2 diabetes mellitus #Mood disorder NOS #Chronic pain Medications at Discharge Home Medications acetaminophen 500 mg tablet (Acetaminophen Extra Strength) 1,000 mg PO TID PAIN 06/17/23 albuterol sulfate 2.5 mg/3 mL (0.083 %) solution for nebulization 2.5 mg inhalation Q8H PRN SHORTNESS OF BREATH/WHEEZING 06/17/23 budesonide-formoterol HFA 160 mcg-4.5 mcg/actuation aerosol inhaler (Symbicort) 2 puff inhalation BID SHORTNESS OF BREATH 06/17/23 bupropion HCl 150 mg 24 hr tablet, extended release 150 mg PO DAILY DEPRESSION 06/17/23 cholecalciferol (vitamin D3) 125 mcg (5,000 unit) tablet (Vitamin D3) 125 mcg PO TU SUPPLEMENT 06/17/23 citalopram 20 mg tablet 20 mg PO DAILY DEPRESSION 06/17/23 dapagliflozin propanediol 10 mg tablet (Farxiga) 10 mg PO DAILY BLOOD SUGARS 06/17/23 fenofibrate nanocrystallized 48 mg tablet 48 mg PO DAILY CHOLESTEROL 06/17/23 metformin 1,000 mg tablet 1,000 mg PO BID BLOOD SUGARS 06/17/23 polyethylene glycol 3350 17 gram oral powder packet (ClearLax) 17 g PO DAILY CONSTIPATION 06/17/23 quercetin 500 mg capsule 500 mg PO BID SUPPLEMENT 06/17/23 tiotropium bromide 18 mcg capsule with inhalation device (Spiriva with HandiHaler) 1 cap inhalation DAILY SHORTNESS OF BREATH/WHEEZING 06/17/23 tizanidine 4 mg tablet 4 mg PO TID MUSCLE SPASMS 06/17/23 aspirin 81 mg tablet,delayed release (Adult Aspirin Regimen) 81 mg PO DAILY HEART HEALTH #21 tabs 06/19/23 atorvastatin 80 mg tablet 80 mg PO QHS 30 days #30 tabs 06/19/23 cephalexin 500 mg capsule 500 mg PO Q6H 5 days #20 caps 06/19/23 clopidogrel 75 mg tablet (Plavix) 75 mg PO DAILY #30 tabs 06/19/23 fluconazole 150 mg tablet 150 mg PO X1 PRN yeast infection #1 TAB 06/19/23 insulin glargine 100 unit/mL (3 mL) subcutaneous pen (Lantus Solostar U-100 Insulin) 20 unit (0.2 mL) subcut QHS DIABETES #30 mL 06/19/23 pantoprazole 40 mg tablet,delayed release (Protonix) 40 mg PO DAILY #30 tabs 06/19/23 Hospital Course Procedures Transthoracic echo Summary of Care Provided Minutes Spent on Discharge: 45 Hospital Course: DOMINIK SCHULER, is a 63 F with a history of chronic pain, tobacco use, COPD, GERD, urinary disorder with bladder stimulator, hypertension, kidney stones, diabetes, depression, multiple back and neck surgeries who presented to [facility] 06/17/2023 from her assisted living facility for an episode of near syncope and possibly slurred speech. Patient alert and answering questions but inconsistent historian. Per report she had been at SNF and had an episode where she was sweaty and looked like she would pass out and had some slurred speech leading to her ER admission. She was initially a stroke alert exam is also some left facial droop however stroke alert canceled as this has been going on for possibly months and some left upper extremity sensory changes for several days. Has multiple somatic complaints. In the ED CT scan negative for acute stroke however given her facial droop and concern with slurred speech and altered mental status briefly hospitalist contacted for admission for stroke rule out. Can continue to have inconsistent NIH scores and face would appear to move symmetrically when attention brought to it for neuro exam left lower seemed to move less comparatively. Echo did demonstrate PFO. Neuro consulted and felt this was likely minor CVA and recommended DAPT for 21 days followed by single platelet agent. Patient's rope score is only 2, unlikely PFO contributed however would benefit from following with cardiology and neurology upon discharge. Also of note patient found to have E. coli UTI here which was treated. On day of discharge she reports feeling much better overall and all questions answered. Discharge instructions as follows: -Advised to take aspirin and Plavix together for 21 days and then discontinue aspirin and only take Plavix thereafter -You are noted to have a small hole in your heart, please follow-up with cardiology upon discharge -Please follow-up with neurology upon discharge, please call Dr. Jaimes's office upon discharge to schedule an establish care appointment for your concern for stroke (ph [phone]) -Speech therapy recommending outpatient GI consult. You will need to follow-up with Dr. Polanco with GI in his office upon discharge. Please call his office to schedule your appointment (. [phone]) -You will be discharged on 5 more days of Keflex 500 mg 4 times daily -A dose of fluconazole will also be sent to your pharmacy as you have indicated you have yeast infections with antibiotic use -You have been doing well on a lower dose of insulin, 20 units at bedtime, would advise continuing this and monitoring your glucose as low blood glucose at home could mimic stroke symptoms -Your simvastatin has been discontinued and atorvastatin started due to concern for stroke -Additionally your omeprazole has been discontinued and pantoprazole will be sent in instead due to a medication interaction between omeprazole and Plavix, please take the pantoprazole and Plavix. It is importantly do not take pantoprazole and omeprazole together -Celecoxib also discontinued as you are being started on Plavix -Please call your primary care provider's office upon discharge to schedule a hospital follow up within 1 week. -For any concerning signs or symptoms please call 911 or proceed to the nearest emergency department YOU WILL ALSO BE GIVEN A PRESCRIPTION FOR AN EVENT MONITOR ON DISCHARGE TO EVALUATE FOR ANY UNDERLYING ARRHYTHMIAS Physical Exam Narrative General: Alert, oriented, no apparent distress HEENT: Atraumatic, normocephalic Eyes: extraocular movements grossly intact Neck: Supple Respiratory: normal respiratory effort Cardiovascular: no edema appreciated GI: nondistended Extremities: Moving all extremities Neuro: No overt focal neurological deficits Psych: Cooperative Weight / BMI Weight Weight: 58 kg Body Mass Index (BMI) 25.8 ABG / Lab / Microbiology Data 06/19/23 06:46 06/19/23 06:46 Laboratory: Laboratory Results - last 24 hr 06/18/23 16:00: POC Glucose 164 H 06/18/23 21:56: POC Glucose 217 H 06/19/23 02:47: POC Glucose 140 H 06/19/23 06:46: WBC 4.7, RBC 3.98 L, Hgb 11.8 L, Hct 37.7, MCV 94.7, MCH 29.6, MCHC 31.3 L, RDW Std Deviation 47.3 H, RDW Coeff of Elo 13.4, Plt Count 215, MPV 9.8, Immature Gran % (Auto) 0.200, Neut % (Auto) 50.9, Lymph % (Auto) 35.5, Rich % (Auto) 8.8, Eos % (Auto) 3.7, Baso % (Auto) 0.9, Absolute Neuts (auto) 2.4, Absolute Lymphs (auto) 1.65, Nucleated RBC % 0, Sodium 140, Potassium 4.5, Chloride 109 H, Carbon Dioxide 27.0, Anion Gap 4 L, BUN 30 H, Creatinine 1.19 H, Estim Creat Clear Calc 43.73, Est GFR (MDRD) Af Amer 59 L, Est GFR (MDRD) Non-Af 49 L, BUN/Creatinine Ratio 25.2 H, Glucose 152 H, Calcium 9.0 06/19/23 06:50: POC Glucose 135 H 06/19/23 10:49: POC Glucose 172 H Microbiology: Microbiology 06/17/23 13:21 Urine, Clean Catch Urine Culture - Final Escherichia coli 06/17/23 08:40 Nasal Secretion SARS-CoV-2 & FLU Antigen (Rapid) - Final D/C Instructions Discharge Diet: - (DASH diet) Meaningful Use Info Meaningful Use Diagnoses (Choose all that apply): Ischemic CVA (SUSPECTED) CVA Therapy Assessed for PT,OT and/or ST?: Yes Ischemic Stroke Antithrombotic order at d/c?: Yes Dx of Atrial fib/flutter?: No Statins at discharge?: Yes Primary Dx Acute Ischemic CVA?: Yes Discharge Plan Admission Admit Date/Time: 06/17/23 11:06 Primary Reason for Your Visit: Left sided facial droop Attending Provider: Bree Thomas Primary Care Provider: Geraldine Jiménez COMPENSATION DIRECTOR Instructions Patient Instructions: ED Fall Prevention Additional Instructions / Restrictions: DISCHARGE INSTRUCTIONS PLEASE READ *Please take this with you to your next doctors appointment* -Advised to take aspirin and Plavix together for 21 days and then discontinue aspirin and only take Plavix thereafter -You are noted to have a small hole in your heart, please follow-up with cardiology upon discharge -Please follow-up with neurology upon discharge, please call Dr. Jaimes's office upon discharge to schedule an establish care appointment for your concern for stroke ( [phone]) -Speech therapy recommending outpatient GI consult. You will need to follow-up with Dr. Polanco with GI in his office upon discharge. Please call his office to schedule your appointment (. [phone]) -You will be discharged on 5 more days of Keflex 500 mg 4 times daily -A dose of fluconazole will also be sent to your pharmacy as you have indicated you have yeast infections with antibiotic use -You have been doing well on a lower dose of insulin, 20 units at bedtime, would advise continuing this and monitoring your glucose as low blood glucose at home could mimic stroke symptoms -Your simvastatin has been discontinued and atorvastatin started due to concern for stroke -Additionally your omeprazole has been discontinued and pantoprazole will be sent in instead due to a medication interaction between omeprazole and Plavix, please take the pantoprazole and Plavix. It is importantly do not take pantoprazole and omeprazole together -Celecoxib also discontinued as you are being started on Plavix -Please call your primary care provider's office upon discharge to schedule a hospital follow up within 1 week. -For any concerning signs or symptoms please call 911 or proceed to the nearest emergency department Discharge Orders/Prescriptions Prescriptions: New atorvastatin 80 mg Tablet 80 mg PO QHS 30 Days Qty: 30 0RF fluconazole 150 mg Tablet 150 mg PO X1 PRN (Reason: yeast infection) Qty: 1 0RF clopidogrel [Plavix] 75 mg tablet 75 mg PO DAILY Qty: 30 0RF cephalexin 500 mg capsule 500 mg PO Q6H 5 Days Qty: 20 0RF pantoprazole [Protonix] 40 mg tablet,delayed release (DR/EC) 40 mg PO DAILY Qty: 30 0RF Continued albuterol sulfate 2.5 mg /3 mL (0.083 %) solution for nebulization 2.5 mg inhalation Q8H PRN (Reason: SHORTNESS OF BREATH/WHEEZING ) tizanidine 4 mg tablet 4 mg PO TID citalopram 20 mg tablet 20 mg PO DAILY metformin 1,000 mg tablet 1,000 mg PO BID bupropion HCl 150 mg tablet extended release 24 hr 150 mg PO DAILY fenofibrate nanocrystallized 48 mg tablet 48 mg PO DAILY budesonide-formoterol [Symbicort] 160-4.5 mcg/actuation HFA aerosol inhaler 2 puff INHALATION BID Farxiga 10 mg tablet 10 mg PO DAILY polyethylene glycol 3350 [ClearLax] 17 gram powder in packet 17 g PO DAILY cholecalciferol (vitamin D3) [Vitamin D3] 125 mcg (5,000 unit) tablet 125 mcg PO TU quercetin 500 mg capsule 500 mg PO BID tiotropium bromide [Spiriva with HandiHaler] 18 mcg capsule, w/inhalation device 1 cap inhalation DAILY Rx Instructions: puncture 1 cap using device; one dose = 2 inhalations acetaminophen [Acetaminophen Extra Strength] 500 mg tablet 1,000 mg PO TID aspirin [Adult Aspirin Regimen] 81 mg tablet,delayed release (DR/EC) 81 mg PO DAILY Qty: 21 0RF Changed insulin glargine [Lantus Solostar U-100 Insulin] 100 unit/mL (3 mL) insulin pen 20 unit SUBCUT QHS Qty: 30 0RF Patient Comments: Pt states she sometimes doesn't take this at bedtime if her blood sugar is below 120. Discontinued losartan 50 mg tablet 50 mg PO DAILY Patient Comments: pt not sure if she is currently taking this medication. simvastatin 10 mg tablet 10 mg PO QHS omeprazole 20 mg capsule,delayed release(DR/EC) 20 mg PO DAILY celecoxib 100 mg capsule 100 mg PO TID Other Ambulatory Orders: 30 Day Event Recorder Preventi (Urgent) Timeframe: 1 Day Facility: [facility] - Location: Cardiovascular Services Ordered By: Dr. Bree Thomas Referrals / Follow Up: [facility] [Provider Group] ( -You will need to follow-up with cardiology upon discharge, please call the office to schedule your appointment (ph [phone])) Camilo Jaimes MD [Non-Staff -Ordering Privileges] - ( -Please follow-up with neurology upon discharge, please call Dr. Jaimes's office upon discharge to schedule an establish care appointment for your concern for stroke (ph [phone])) Friend,Osmani, [Med Staff - Active Staff] - Geraldine Jiménez COMPENSATION DIRECTOR, COMPENSATION DIRECTOR-C [Primary Care Provider] - Within 1 Week Disposition Disposition (needs filled in before D/C Order can be placed): Assisted Living Charges/Coding Visit Charges Inpatient E&M: 38146 Disch Hosp >30min
--- NOTE | 2023-06-19 15:12 | NURSING ---
Report called to Miladis at [facility].
[2023-06-19 16:11] LABS: Bedside Glucose 133 mg/dL (74-106)
== END 2023-06-19 14:17 | disposition home or self-care (01) ==
LOC: ED 10:46 → PCU 11:47
PROVIDERS: Admitting Provider Internal Medicine; Emergency Provider Emergency Medicine; PCP Nurse Practitioner Adult Health; Visit Provider Internal Medicine
DX: R29.818 Other symptoms and signs involving the nervous system (principal); F03.90 Unspecified dementia, unspecified severity, without behavioral disturbance, psychotic disturbance, mood disturbance, and anxiety; J44.9 Chronic obstructive pulmonary disease, unspecified; Z79.4 Long term (current) use of insulin; E11.9 Type 2 diabetes mellitus without complications; B96.20 Unspecified Escherichia coli [E. coli] as the cause of diseases classified elsewhere; K21.9 Gastro-esophageal reflux disease without esophagitis; I12.9 Hypertensive chronic kidney disease with stage 1 through stage 4 chronic kidney disease, or unspecified chronic kidney disease; Z20.822 Contact with and (suspected) exposure to COVID-19; Z95.0 Presence of cardiac pacemaker; F17.210 Nicotine dependence, cigarettes, uncomplicated; F32.A Depression, unspecified; N18.9 Chronic kidney disease, unspecified; Z79.51 Long term (current) use of inhaled steroids; R47.81 Slurred speech; R53.1 Weakness; E78.5 Hyperlipidemia, unspecified; Z79.899 Other long term (current) drug therapy; Z79.84 Long term (current) use of oral hypoglycemic drugs; R29.810 Facial weakness; Z79.02 Long term (current) use of antithrombotics/antiplatelets; Z79.82 Long term (current) use of aspirin; R06.02 Shortness of breath; R07.9 Chest pain, unspecified; R11.0 Nausea
CPT/HCPCS: 36415; 70450; 70496; 70498; 70551; 71045; 73502; 74176; 80048; 80061; 80076; 80307; 81001; 82962; 83036; 83690; 83880; 84443; 84484; 85025; 87077; 87086; 87088; 87186; 87428; 92526; 92610; 93005; 93306; 94640; 94762; 96361; 96365; 96366; 96372; 97162; 97166; 97535; 97802; 99221; 99285; A9575; J7040; Q9967; A4216; G0378

== ENCOUNTER 2023-12-29 09:34 | Emergency (ER) | payer MEDICARE, MEDICAID, SELFPAY ==
[2023-12-29 09:36] VITALS: BP 123/59; PULSE 91; RESP 16; TEMP 35.9; O2SAT 97; BMI 26.7
--- NOTE | 2023-12-29 09:39 | CT_ITS ---
STUDY: CT CHEST WITH CONTRAST REASON FOR EXAM: Female, 63 years old. Left breast mass. RADIATION DOSAGE (If Supplied By Facility): CTDIvol = ( 10.41 ) mGy, DLP = ( 379.61 ) mGycm TECHNIQUE: Transaxial imaging was performed following intravenous administration of IV 100mL Isovue-300. Multiplanar coronal and sagittal images were reformatted. Individualized dose optimization techniques were used for this CT. COMPARISON: No relevant priors. FINDINGS: CHEST There is a 1.4 cm x 1.1 cm well-defined hypodense soft tissue nodule in the subcutaneous fat just deep to the skin surface along the medial inferior aspect of the anterior chest wall. This corresponds to the palpable abnormality. This most likely represents either a sebaceous cyst or focal infectious process. No breast mass is seen. The lungs are normal. There is no demonstrated pleural abnormality. Normal heart and pericardium. Normal mediastinum. Normal hilar regions. Normal unenhanced pulmonary arteries. There is atherosclerotic calcification of the aortic arch and descending thoracic aorta There are multi-level degenerative changes of the thoracic spine. Fatty infiltration of the liver. Status post cholecystectomy. CT/Chest WITH Contrast IMPRESSION: 1.4 cm x 1.1 some well-defined hypodense soft tissue nodule in the subcutaneous fat just deep to the skin surface along the medial inferior aspect of the anterior chest wall on the left side. This corresponds to the palpable abnormality. The lungs are clear. Electronically Signed: Tian Ansari MD at 11:43 EDT ,
--- NOTE | 2023-12-29 09:41 | ED.RN ---
pt has boil to chest and area reddened around. when asked how she planned to get home on discharge, pt states they told me you would get me a ride back. staff explains to patient that [facility] staff may not have transport avaliable to take her back if transport van is not running. staff then tells pt if we have no transport avaliable, pt would have to call family or friend or a taxi. pt states undestanding
--- NOTE | 2023-12-29 09:42 | EX.ED.DYSGE1 ---
HPI History of Present Illness Chief Complaint: Abscess Narrative Narrative: 63-year-old female presenting with a lump on medial aspect of her left breast but diffuse breast pain into the armpit. The area of the lump is red inferiorly and has been no drainage. Patient states this was evaluated by her [employer] SUPERVISOR Adali Jiménez. Patient was told she does not need antibiotics and she was told she needs a mammogram however she is upset that no mammogram was ordered so she called an ambulance to come to the ER for evaluation. She states that she has been nauseous for a long time. Last night she vomited. She states her blood sugars are in the 200s. She does states she occasionally gets the sweats as well. [facility] Medical History Anxiety Chronic back pain Chronic neck pain COPD (chronic obstructive pulmonary disease) Depression Diabetes mellitus, type 2 GERD (gastroesophageal reflux disease) HTN (hypertension) Hx of renal calculi PFO (patent foramen ovale) TIA (transient ischemic attack) Home Medications acetaminophen 500 mg tablet (Acetaminophen Extra Strength) 1,000 mg PO TID PAIN 06/17/23 [History Last Taken 12/29/23] albuterol sulfate 2.5 mg/3 mL (0.083 %) solution for nebulization 2.5 mg inhalation Q8H PRN SHORTNESS OF BREATH/WHEEZING 06/17/23 [History Last Taken Unknown] budesonide-formoterol HFA 160 mcg-4.5 mcg/actuation aerosol inhaler (Symbicort) 2 puff inhalation BID SHORTNESS OF BREATH 06/17/23 [History Last Taken 12/29/23] bupropion HCl 150 mg 24 hr tablet, extended release 150 mg PO DAILY DEPRESSION 06/17/23 [History Last Taken 12/29/23] cholecalciferol (vitamin D3) 125 mcg (5,000 unit) tablet (Vitamin D3) 125 mcg PO TU SUPPLEMENT 06/17/23 [History Last Taken 12/28/23] citalopram 20 mg tablet 20 mg PO DAILY DEPRESSION 06/17/23 [History Last Taken 12/29/23] dapagliflozin propanediol 10 mg tablet (Farxiga) 10 mg PO DAILY BLOOD SUGARS 06/17/23 [History Last Taken 12/29/23] fenofibrate nanocrystallized 48 mg tablet 48 mg PO DAILY CHOLESTEROL 06/17/23 [History Last Taken 12/29/23] metformin 1,000 mg tablet 1,000 mg PO BID BLOOD SUGARS 06/17/23 [History Last Taken 12/29/23] tiotropium bromide 18 mcg capsule with inhalation device (Spiriva with HandiHaler) 1 cap inhalation DAILY SHORTNESS OF BREATH/WHEEZING 06/17/23 [History Last Taken 12/29/23] tizanidine 4 mg tablet 4 mg PO TID MUSCLE SPASMS 06/17/23 [History Last Taken 12/29/23] atorvastatin 80 mg tablet 80 mg PO QHS 30 days #30 tabs 06/19/23 [Rx Last Taken 12/28/23] clopidogrel 75 mg tablet (Plavix) 75 mg PO DAILY BLOOD THINNER #30 tabs 06/19/23 [Rx Last Taken 12/29/23] pantoprazole 40 mg tablet,delayed release (Protonix) 40 mg PO DAILY ACID REFLUX #30 tabs 06/19/23 [Rx Last Taken 12/29/23] cephalexin 500 mg capsule 500 mg PO Q6 #40 CAPSULES 12/29/23 [Rx Last Taken Unknown] coenzyme Q10 100 mg capsule (Co Q-10) 100 mg PO DAILY SUPPLEMENT 12/29/23 [History Last Taken 12/29/23] insulin glargine 100 unit/mL (3 mL) subcutaneous pen (Lantus Solostar U-100 Insulin) 38 unit subcut QHS DIABETES 12/29/23 [History Last Taken 12/27/23] polyethylene glycol 3350 17 gram/dose oral powder 17 g PO Q24H CONSTIPATION 12/29/23 [History Last Taken 12/29/23] Allergy/AdvReac Type Severity Reaction Status Date / Time codeine Allergy Intermediate Rash Verified 12/29/23 09:34 Sulfa (Sulfonamide Allergy Rash Verified 12/29/23 09:34 Antibiotics) Family History Other Back pain with history of spinal surgery Social History Smoking Status: Former smoker ROS ROS ED Review of Systems ROS Unobtainable: due to encephalopathy Constitutional Constitutional ED: Reports sweats; Denies chills or fever(s) Eyes Eyes: Denies blurry vision or change in vision ENT ENT ED: Denies rhinorrhea Cardiovascular Cardiovascular: Denies chest pain or palpitations Respiratory/Chest Respiratory/Chest: Denies cough or dyspnea Gastrointestinal Gastrointestinal: Denies abdominal pain Genitourinary Genitourinary ED: Denies dysuria or hematuria Musculoskeletal Musculoskeletal: Denies arthralgias Integumentary Reports other Details: Mass on medial aspect of left breast Neurologic Neurologic: Denies headache(s) Psychiatric Psychiatric: Denies anxiety or depression EXAM Physical Exam Const Vital Signs: 12/29/23 09:36 12/29/23 09:46 12/29/23 11:46 Temperature 96.7 F L Temperature Source Temporal Pulse Rate 91 84 65 Respiratory Rate 16 19 H 18 Blood Pressure 123/59 H 118/53 L 112/74 Blood Pressure Mean 80 74 86 Pulse Ox 97 91 95 Oxygen Delivery Method Room Air Room Air Positive well nourished General Appearance ED: NAD HEENT Reports moist mucous membranes Eyes PERRL and EOMs intact bilaterally Chest Wall Chest Narrative: 2 cm circular irregular shaped mass. On the medial aspect of the left breast. There is erythema to it inferiorly. It is hard and not fluctuant. There is tenderness surrounding the area without further erythema or warmth. She is tender in the axilla and the lateral breast but I do not feel any lymph nodes. Resp normal respiratory effort Cardio regular rate and regular rhythm GI normal to inspection, nondistended, normoactive bowel sounds Neuro oriented x3 and CN's II-XII intact bilaterally MDM MDM MDM Narrative Medical decision making narrative: Patient presenting with lump on the left breast. Irregular shaped and hard. Nonfluctuant. Will obtain some basic lab work CBC to assess white blood cell count, hemoglobin and platelets. BMP to assess renal function and electrolytes. Will obtain a CT of the chest to further elucidate source of his mass. CBC shows normal cell count of 5.5. Hemoglobin 9.3. Platelets are normal. Creatinine 1.05. CT of the chest shows a 1.4 x 1.1 well-defined hypodense soft tissue nodule in the subcutaneous fat just deep to the skin surface along the medial inferior anterior chest. I counseled patient on findings. I do not believe this is an abscess. I did insurance counselor her she will still need to have a mammogram and she should follow-up with her primary provider. Impression 1. Chest wall cyst Lab Data Attestation: I reviewed the patient's lab results. Labs: Laboratory Results - last 24 hr 12/29/23 10:11 WBC 5.5 RBC 3.94 L Hgb 11.3 L Hct 36.6 L MCV 92.9 MCH 28.7 MCHC 30.9 L RDW Std Deviation 45.0 H RDW Coeff of Elo 13.4 Plt Count 214 MPV 9.6 Immature Gran % (Auto) 0.500 Neut % (Auto) 58.9 Lymph % (Auto) 30.7 [place] % (Auto) 6.5 Eos % (Auto) 2.7 Baso % (Auto) 0.7 Absolute Neuts (auto) 3.2 Absolute Lymphs (auto) 1.69 Nucleated RBC % 0 Sodium 141 Potassium 4.0 Chloride 110 H Carbon Dioxide 26.0 Anion Gap 5 BUN 18 Creatinine 1.05 H Estim Creat Clear Calc 43.92 Est GFR (MDRD) Af Amer 68 Est GFR (MDRD) Non-Af 56 L BUN/Creatinine Ratio 17.1 Glucose 258 H Calcium 9.1 Radiography Diagnostic Testing: Clinical Impression(s) from Imaging Studies Chest CT 12/29/23 09:39 IMPRESSION: 1.4 cm x 1.1 some well-defined hypodense soft tissue nodule in the subcutaneous fat just deep to the skin surface along the medial inferior aspect of the anterior chest wall on the left side. This corresponds to the palpable abnormality. The lungs are clear. Electronically Signed: Tian Ansari MD at 11:43 EDT , Discharge Plan Triage Chief Complaint: Abscess ED Provider: Mike Ortiz Dx/Rx/DC Orders Clinical Impression: Nodule of skin of breast Instructions: ED Breast Lump, Uncertain Cause Prescriptions: New cephalexin 500 mg capsule 500 mg PO Q6 Qty: 40 0RF No Action albuterol sulfate 2.5 mg /3 mL (0.083 %) solution for nebulization 2.5 mg inhalation Q8H PRN (Reason: SHORTNESS OF BREATH/WHEEZING ) tizanidine 4 mg tablet 4 mg PO TID citalopram 20 mg tablet 20 mg PO DAILY metformin 1,000 mg tablet 1,000 mg PO BID bupropion HCl 150 mg tablet extended release 24 hr 150 mg PO DAILY fenofibrate nanocrystallized 48 mg tablet 48 mg PO DAILY budesonide-formoterol [Symbicort] 160-4.5 mcg/actuation HFA aerosol inhaler 2 puff INHALATION BID dapagliflozin propanediol [Farxiga] 10 mg tablet 10 mg PO DAILY cholecalciferol (vitamin D3) [Vitamin D3] 125 mcg (5,000 unit) tablet 125 mcg PO TU tiotropium bromide [Spiriva with HandiHaler] 18 mcg capsule, w/inhalation device 1 cap inhalation DAILY Rx Instructions: puncture 1 cap using device; one dose = 2 inhalations acetaminophen [Acetaminophen Extra Strength] 500 mg tablet 1,000 mg PO TID atorvastatin 80 mg Tablet 80 mg PO QHS 30 Days Qty: 30 0RF clopidogrel [Plavix] 75 mg tablet 75 mg PO DAILY Qty: 30 0RF pantoprazole [Protonix] 40 mg tablet,delayed release (DR/EC) 40 mg PO DAILY Qty: 30 0RF coenzyme Q10 [Co Q-10] 100 mg capsule 100 mg PO DAILY polyethylene glycol 3350 17 gram/dose powder 17 g PO Q24H insulin glargine [Lantus Solostar U-100 Insulin] 100 unit/mL (3 mL) insulin pen 38 unit SUBCUT QHS Primary Care Provider: Geraldine Jiménez [employer] SU[employer] Referrals: Geraldine Jiménez [employer] SUPERVISOR, [employer] SUPER[employer]OR-C [Primary Care Provider] - Disposition Disposition: Home, Self Care
[2023-12-29 09:46] VITALS: BP 118/53; PULSE 84; RESP 19; O2SAT 91
[2023-12-29 10:39] LABS: Absolute Lymphocyte Count 1.69 X10^3/uL (0.83-4.51); Absolute Neutrophil Count 3.2 X10^3/uL (2.0-7.7); Basophil# 0.04 X10^3/uL; Basophil% 0.7 % (0-1); Eosinophil# 0.15 X10^3/uL; Eosinophils% 2.7 % (0-5); Hematocrit 36.6 % (37-47); Hemoglobin 11.3 g/dL (12.0-15.0); Lymphocyte # 1.69 X10^3/ul (0.83-4.51); Lymphocyte % 30.7 % (19-41); Mean Corp Hgb Conc 30.9 g/dL (32-36); Mean Corpuscular Hgb 28.7 pg (27.0-32.0); Mean Corpuscular Volume 92.9 fL (81-99); Mean Platelet Vol. 9.6 fl (6.2-12.0); Monocyte# 0.36 X10^3/uL; Monocyte% 6.5 % (0-10); NRBC Flagged by Analyzer 0 % (0-5); Neutrophil # 3.23 X10^3/uL (2.7-7.7); Neutrophil % 58.9 % (47-70); Platelet Count 214 K/mm3 (150-450); RBC Distribution Width CV 13.4 % (11.6-14.6); Red Blood Count 3.94 M/mm3 (4.2-5.4); White Blood Count 5.5 K/mm3 (4.4-11.0)
[2023-12-29 10:50] LABS: Anion Gap 5 (5-15); BUN 18 mg/dL (7-18); BUN/Creat Ratio 17.1 RATIO (10-20); Calcium,Total 9.1 mg/dL (8.5-10.1); Chloride 110 mmol/L (98-107); Creatinine, Serum 1.05 mg/dL (0.55-1.02); EST Glomerular Filtration Rate 56 mL/min (>60); Est Glom Filt Rate - Afr Amer 68 mL/min (>60); Estimated Creatinine Clearance 43.92 ml/min; Glucose 258 mg/dL (74-106); Sodium Level 141 mmol/L (136-145)
[2023-12-29 11:46] VITALS: BP 112/74; PULSE 65; RESP 18; O2SAT 95
[2023-12-29 13:00] VITALS: BP 126/64; PULSE 74; RESP 16; O2SAT 95
[2023-12-29] MEDS: Cephalexin 250 MG Capsule 500 MG PO (14:22)
[2023-12-29 14:24] VITALS: BP 121/51; PULSE 67; RESP 16; TEMP 36.6; O2SAT 94
== END 2023-12-29 14:25 | disposition home or self-care (01) ==
PROVIDERS: Emergency Provider Student in an Organized Health Care Education/Training Program; PCP Nurse Practitioner Adult Health; Visit Provider Student in an Organized Health Care Education/Training Program
DX: N63.20 Unspecified lump in the left breast, unspecified quadrant (principal); J44.9 Chronic obstructive pulmonary disease, unspecified; E11.9 Type 2 diabetes mellitus without complications; Z79.4 Long term (current) use of insulin; Z87.891 Personal history of nicotine dependence; N64.4 Mastodynia; I10 Essential (primary) hypertension; K21.9 Gastro-esophageal reflux disease without esophagitis; Z79.84 Long term (current) use of oral hypoglycemic drugs; Z79.899 Other long term (current) drug therapy
CPT/HCPCS: 71260; 80048; 85025; 99283; Q9967; A4216

== ENCOUNTER → 2024-10-27 | Outpatient (CLI) | payer MEDICARE, MEDICAID, SELFPAY ==
--- NOTE | 2024-10-27 07:24 | VDLE_ITS ---
Reason For Study Reason For Study: Edema RIGHT LEFT CFV is compressible, spontaneous, phasic, competent GSV not visualized. and demonstrates normal augmentation. CFV is compressible, spontaneous, phasic, competent, Procedure and demonstrates normal augmentation. This is a venous duplex using B-mode, color flow and FV is compressible, spontaneous, phasic, competent spectral Doppler. and demonstrates normal augmentation. Exam performed in department. POP V is compressible, spontaneous, phasic, competent and demonstrates normal augmentation. T/P Trunk is compressible. PTV is compressible. LT PerV is compressible. VL/Venous Duplex US, Unilateral Interpretation Summary Deep veins of the left lower extremity are patent and compressible segmentally. There is no evidence of left lower extremity deep vein thrombosis. Valvular competence appears intact within the p roximal deep venous system on the left . The left great saphenous vein appears patent and compressible segmentally. The right common femoral vein is patent and compressible . Ordering Physician: Geraldine Jiménez Referring Physician: Geraldine Jiménez Performed By: Heavenly Quintero RVT and Student
== END | disposition home or self-care (01) ==
LOC: CVS 07:24
PROVIDERS: PCP Nurse Practitioner Adult Health; Referring Provider Nurse Practitioner Adult Health; Visit Provider Nurse Practitioner Adult Health
DX: R60.0 Localized edema (principal)
CPT/HCPCS: 93971

== ENCOUNTER 2024-12-18 06:53 | Emergency (ER) | payer MEDICARE, MEDICAID, SELFPAY ==
[2024-12-18 06:55] VITALS: BP 133/65; PULSE 82; RESP 16; TEMP 36.8; O2SAT 95; BMI 26.9
--- NOTE | 2024-12-18 07:19 | CT_ITS ---
PROCEDURE: ABDOMEN/PELVIS W IV CONT ONLY 12/18/2024 REASON FOR EXAM: ABDOMINAL PAIN TECHNIQUE: Abdomen and pelvis CT with intravenous contrast. Coronal and Sagittal reconstruction series were provided. Delayed images through the kidneys, ureters and bladder PATIENT PREPARATION: Per protocol ORAL CONTRAST TYPE: None. CONTRAST: 75 cc Isovue-300 IV One or more dose reduction techniques were used (e.g., Automated exposure control, adjustment of the mA and/or kV according to patient size, use of iterative reconstruction technique. RADIATION DOSE SUMMARY: CTDlvol: 15.41 mGy DLP: 1272.66 mGycm COMPARISON: None available FINDINGS: The lung bases appear clear. The liver, adrenal glands, pancreas and spleen appear within limits. Status post cholecystectomy. The right kidney appears within limits. Small right renal calcification centrally which does not appear definitely associated with the collecting system on delayed images to suggest renal stone. Left renal cortical thinning and scarring. Left renal cyst. Mild asymmetric left perinephric stranding, edema is nonspecific which may be related to renal disease with inflammatory/infectious process not excluded, clinically correlate. The renal nephrograms appear symmetric. Possible punctate tiny stone within the nondilated left renal pelvis axial 38 without hydronephrosis. No definite ureteral or bladder stone identified. The bladder appears within limits. Bilateral renal excretion is seen on the delayed images without hydroureteronephrosis. Contrast material is seen within the bladder. Aortoiliac atherosclerotic changes without abdominal aortic aneurysm. A couple of prominent sized left inguinal lymph nodes with appearance of preserved fatty sindhu, nonspecific. Bilateral small appearing fat containing inguinal hernias without stranding. No bowel dilation or free air. [id number] amount of colonic stool without wall thickening or pericolonic inflammatory change. Normal caliber appendix without secondary signs. No free fluid. Severe appearing spondylosis/discogenic change at L4-5 with anterolisthesis, uncovered disc, central and bilateral foraminal narrowing. [place] artifact from sacral stimulator. CT/Abdomen/Pelvis W IV Cont ONLY IMPRESSION: Left renal cortical thinning and scarring. Mild asymmetric left perinephric stranding, edema is nonspecific which may be r elated to renal disease with inflammatory/infectious process not excluded, clinically correlate. The renal nephrograms appear symmetric. Possible punctate tiny stone within the nondilated left renal pelvis axial 38 w ithout hydronephrosis. No definite ureteral or bladder stone identified. The bladder appears within limits. [id number] amount of colonic stool without wall thickening or pericoloni c inflammatory change. Reading Location: [id number]
[2024-12-18 07:26] LABS: Absolute Lymphocyte Count 1.72 X10^3/uL (0.83-4.51); Basophil# 0.06 X10^3/uL; Basophil% 1.4 % (0-1); Eosinophil# 0.11 X10^3/uL; Eosinophils% 2.5 % (0-5); Hemoglobin 9.8 g/dL (12.0-15.0); Lymphocyte # 1.72 X10^3/ul (0.83-4.51); Lymphocyte % 39.5 % (19-41); Mean Corp Hgb Conc 29.7 g/dL (32-36); Mean Corpuscular Hgb 22.7 pg (27.0-32.0); Mean Corpuscular Volume 76.6 fL (81-99); Mean Platelet Vol. 9.1 fl (6.2-12.0); Monocyte# 0.44 X10^3/uL; Monocyte% 10.1 % (0-10); NRBC Flagged by Analyzer 0 % (0-5); Neutrophil # 1.99 X10^3/uL (2.7-7.7); Neutrophil % 45.8 % (47-70); POSITIVE MORPHOLOGY YES; Platelet Count 314 K/mm3 (150-450); RBC Distribution Width CV 16.4 % (11.6-14.6); RBC Distribution Width SD 45.8 fl (35.1-43.9); Red Blood Count 4.31 M/mm3 (4.2-5.4); White Blood Count 4.4 K/mm3 (4.4-11.0)
[2024-12-18 07:29] LABS: Differential Indicated SCAN CRITERIA MET
[2024-12-18 07:54] LABS: AST(SGOT) 27 U/L (<=31); Alanine Aminotransfer ALT/SGPT 14 U/L (<=34); Albumin, Serum 4.5 g/dL (3.4-4.8); Alkaline Phosphatase 64 U/L (35-104); Anion Gap 11 (5-15); BUN 24 mg/dL (4-19); BUN/Creat Ratio 21.9 RATIO (10-20); Bilirubin, Direct 0.18 mg/dL (0.00-0.30); Calcium,Total 9.6 mg/dL (7.6-11.0); Carbon Dioxide 23.5 mmol/L (21.0-32.0); Chloride 107 mmol/L (98-108); Creatinine, Serum 1.08 mg/dL (0.70-1.20); EST Glomerular Filtration Rate 57 (>60); Estimated Creatinine Clearance 42.25 ml/min (50-250); Globulin 2.8 g/dL (2.2-4.2); Glucose 151 mg/dL (70-99); Lipase 42 U/L (13-75); Potassium 4.2 mmol/L (3.3-5.1); Protein, Total 7.3 g/dL (5.9-8.4); Sodium Level 142 mmol/L (133-145); Total Bilirubin 0.36 mg/dL (0.00-1.30)
[2024-12-18 07:58] LABS: Atypical Lymphocyte RARE %
--- NOTE | 2024-12-18 08:26 | EX.ED.DYSGE1 ---
HPI History of Present Illness Chief Complaint: Complaint Informant: patient Narrative Narrative: 64-year-old female presenting to the emergency room with abdominal pain and blood in the urine. Patient states that she has a [id number]-old bladder stimulator that was placed by [facility]. She states that recently she feels that parts of the stimulator are coming out in her urine. She states that she has an appointment upcoming with urology. She states that today she noticed some blood in the urine. She denies any vaginal bleeding. She notes lower abdominal pain and feels bloated. She notes normal bowel movements. No reported fevers. She does have a history of kidney stones. She lives at assisted living. She is on Plavix. She feels pressure in the pelvis. PFSH PFS Medical History PFO (patent foramen ovale) TIA (transient ischemic attack) GERD (gastroesophageal reflux disease) HTN (hypertension) Diabetes mellitus, type 2 Anxiety Depression COPD (chronic obstructive pulmonary disease) Hx of renal calculi Chronic neck pain Chronic back pain Home Medications ?Medication ?Instructions ?Recorded ?Last Taken ?Type acetaminophen 500 mg tablet 1,000 mg PO TID PAIN 06/17/23 12/29/23 History (Acetaminophen Extra Strength) albuterol sulfate 2.5 mg/3 mL 2.5 mg inhalation Q8H PRN 06/17/23 Unknown History (0.083 %) solution for nebulization SHORTNESS OF BREATH/WHEEZING budesonide-formoterol HFA 160 2 puff inhalation BID SHORTNESS OF 06/17/23 12/29/23 History mcg-4.5 mcg/actuation aerosol BREATH inhaler (Symbicort) cholecalciferol (vitamin D3) 125 125 mcg PO TU SUPPLEMENT 06/17/23 12/28/23 History mcg (5,000 unit) tablet (Vitamin D3) dapagliflozin propanediol 10 mg 10 mg PO DAILY BLOOD SUGARS 06/17/23 12/29/23 History tablet (Farxiga) fenofibrate nanocrystallized 48 mg 48 mg PO DAILY CHOLESTEROL 06/17/23 12/29/23 History tablet metformin 1,000 mg tablet 1,000 mg PO BID BLOOD SUGARS 06/17/23 12/29/23 History tiotropium bromide 18 mcg capsule 1 cap inhalation DAILY SHORTNESS 06/17/23 12/29/23 History with inhalation device (Spiriva OF BREATH/WHEEZING with HandiHaler) tizanidine 4 mg tablet 4 mg PO TID MUSCLE SPASMS 06/17/23 12/29/23 History atorvastatin 80 mg tablet 80 mg PO QHS 30 days #30 tabs 06/19/23 12/28/23 Rx clopidogrel 75 mg tablet (Plavix) 75 mg PO DAILY BLOOD THINNER #30 06/19/23 12/29/23 Rx tabs pantoprazole 40 mg tablet,delayed 40 mg PO DAILY ACID REFLUX #30 tabs 06/19/23 12/29/23 Rx release (Protonix) coenzyme Q10 100 mg capsule (Co 100 mg PO DAILY SUPPLEMENT 12/29/23 12/29/23 History Q-10) insulin glargine 100 unit/mL (3 38 unit subcut QHS DIABETES 12/29/23 12/27/23 History mL) subcutaneous pen (Lantus Solostar U-100 Insulin) polyethylene glycol 3350 17 17 g PO Q24H CONSTIPATION 12/29/23 12/29/23 History gram/dose oral powder cefpodoxime 100 mg tablet 100 mg PO BID 7 days #14 tabs 12/18/24 Unknown Rx furosemide 40 mg tablet 40 mg PO DAILY 12/18/24 Unknown History magnesium oxide 400 mg (241.3 mg 400 mg PO DAILY 12/18/24 Unknown History magnesium) tablet mirtazapine 7.5 mg tablet 7.5 mg PO QHS 12/18/24 Unknown History venlafaxine 37.5 mg 37.5 mg PO DAILY 12/18/24 Unknown History capsule,extended release 24 hr venlafaxine 75 mg capsule,extended 75 mg PO DAILY 12/18/24 Unknown History release 24 hr Allergy/AdvReac Type Severity Reaction Status Date / Time codeine Allergy Intermediate Rash Verified 12/29/23 09:34 Sulfa (Sulfonamide Allergy Rash Verified 12/29/23 09:34 Antibiotics) Family History Other Back pain with history of spinal surgery Social History Smoking Status: Current every day smoker tobacco type: cigarettes ROS ROS ED Constitutional Constitutional ED: Denies chills, fever(s) or weight loss Eyes Eyes: Denies change in vision or diplopia ENT ENT ED: Denies ear pain, rhinorrhea or sore throat Cardiovascular Cardiovascular: Denies chest pain, orthopnea, palpitations or racing heartbeat Respiratory/Chest Respiratory/Chest: Denies cough, dyspnea or orthopnea Gastrointestinal Gastrointestinal: Reports abdominal pain; Denies diarrhea, nausea or vomiting Genitourinary Genitourinary ED: Reports hematuria; Denies dysuria or urinary frequency Musculoskeletal Musculoskeletal: Denies arthralgias or myalgias Integumentary Denies abscess or rash Neurologic Neurologic: Denies headache(s) or weakness Psychiatric Psychiatric: Denies anxiety, depression, suicidal ideation or suicidal thoughts Endocrine Endocrinology: Denies polydipsia, polyphagia or polyuria Allergic/Immunologic Allergic/Immunologic ED: Denies mouth swelling, tongue swelling or urticaria EXAM Physical Exam Const Vital Signs: 12/18/24 06:55 Temperature 98.3 F Temperature Source Oral Pulse Rate 82 Respiratory Rate 16 Blood Pressure 133/65 H Blood Pressure Mean 87 Pulse Ox 95 Oxygen Delivery Method Room Air Positive well nourished and well developed General Appearance ED: well developed and NAD HEENT Reports normocephalic, head/scalp atraumatic and moist mucous membranes Eyes PERRL and EOMs intact bilaterally Neck no lymphadenopathy, supple and no JVD Resp normal respiratory effort and clear to auscultation bilaterally Cardio regular rate, regular rhythm and no murmurs GI GI Narrative: Tender to palpation suprapubic right lower quadrant region. There is increased gaseous distention of the abdomen noted. I would not characterize the abdomen is surgical. Palpation: soft Back/Spine no CVA tenderness and normal ROM Extremity normal to inspection General Extremety ED: Negative for edema General Extremity: Negative for edema Neuro oriented x3 and CN's II-XII intact bilaterally Sensorium / Orientation: alert Motor Exam: strength 5/5 throughout Psych mental status grossly normal Mood & Affect: Negative for depressed or tearful Skin no rashes or lesions noted and no wounds MDM MDM MDM Narrative Medical decision making narrative: Differential diagnosis includes but not limited to UTI vaginal bleeding kidney stone diverticulitis bladder stimulator complication volvulus small bowel obstruction White count 4.4 hemoglobin 9.8 with plate count 314. BMP shows a glucose of 151 creatinine 1.08 BUN of 24. Lipase 42 normal LFTs. Urinalysis demonstrates 50-100 white cells 1+ bacteria negative nitrates positive leukocyte esterase 0-5 squamous cells. This was sent for culture. CT of the abdomen pelvis was obtained. This was read by radiology reviewed by myself. The asymmetric left stranding difficult to interpret. She does not have fever she does not have a white count she does not have CVA tenderness. She does have some evidence of UTI. I do not see any obvious bowel obstruction. Clinically she appears well and is very comfortable in the bed. I will write her for antibiotics and have her follow-up with urology in 2 days when she is scheduled. History & Record Review Discussion w/independent historian: Patient Additional record(s) reviewed:: Prior ED visit and Prior labs Lab Data Attestation: I reviewed the patient's lab results. Labs: Laboratory Results - last 24 hr 12/18/24 12/18/24 07:20 09:29 WBC 4.4 RBC 4.31 Hgb 9.8 L Hct 33.0 L MCV 76.6 L MCH 22.7 L MCHC 29.7 L RDW Std Deviation 45.8 H RDW Coeff of Elo 16.4 H Plt Count 314 MPV 9.1 Immature Gran % (Auto) 0.700 Neut % (Auto) 45.8 L Lymph % (Auto) 39.5 [place] % (Auto) 10.1 H Eos % (Auto) 2.5 Baso % (Auto) 1.4 H Absolute Neuts (auto) 2.0 Absolute Lymphs (auto) 1.72 Nucleated RBC % 0 Atypical Lymphocytes RARE Sodium 142 Potassium 4.2 Chloride 107 Carbon Dioxide 23.5 Anion Gap 11 BUN 24 H Creatinine 1.08 Estim Creat Clear Calc 42.25 L Est GFR (MDRD) Non-Af 57 L BUN/Creatinine Ratio 21.9 H Glucose 151 H Calcium 9.6 Total Bilirubin 0.36 Direct Bilirubin 0.18 AST 27 ALT 14 Alkaline Phosphatase 64 Total Protein 7.3 Albumin 4.5 Globulin 2.8 Lipase 42 Urine Color Yellow Urine Clarity Sl. Cloudy Urine pH 7.0 Ur Specific Ehrhardt 1.010 Urine Protein 15 H Urine Glucose (UA) 1000 H Urine Ketones Negative Urine Occult Blood 10 H Urine Nitrite Negative Urine Bilirubin Negative Urine Urobilinogen Normal Ur Leukocyte Esterase 100 H Urine RBC 0 SEEN Urine WBC 50-100 SEEN Ur Squamous Epith Cells 0-5 SEEN Urine Bacteria 1+ Urine Mucus 0 SEEN Radiography Diagnostic Testing: Clinical Impression(s) from Imaging Studies Abdomen/Pelvis CT 12/18/24 07:19 IMPRESSION: Left renal cortical thinning and scarring. Mild asymmetric left perinephric stranding, edema is nonspecific which may be related to renal disease with inflammatory/infectious process not excluded, clinically correlate. The renal nephrograms appear symmetric. Possible punctate tiny stone within the nondilated left renal pelvis axial 38 without hydronephrosis. No definite ureteral or bladder stone identified. The bladder appears within limits. [id number] amount of colonic stool without wall thickening or pericolonic inflammatory change. Reading Location: [facility] Discharge Plan Triage Chief Complaint: Complaint ED Provider: César Terrazas Dx/Rx/DC Orders Clinical Impression: Acute pelvic pain, Acute cystitis Instructions: UTIs Prescriptions: New cefpodoxime 100 mg tablet 100 mg PO BID 7 Days Qty: 14 0RF Rx Instructions: must administer with a meal/food No Action albuterol sulfate 2.5 mg /3 mL (0.083 %) solution for nebulization 2.5 mg inhalation Q8H PRN (Reason: SHORTNESS OF BREATH/WHEEZING ) tizanidine 4 mg tablet 4 mg PO TID metformin 1,000 mg tablet 1,000 mg PO BID fenofibrate nanocrystallized 48 mg tablet 48 mg PO DAILY budesonide-formoterol [Symbicort] 160-4.5 mcg/actuation HFA aerosol inhaler 2 puff INHALATION BID dapagliflozin propanediol [Farxiga] 10 mg tablet 10 mg PO DAILY cholecalciferol (vitamin D3) [Vitamin D3] 125 mcg (5,000 unit) tablet 125 mcg PO TU tiotropium bromide [Spiriva with HandiHaler] 18 mcg capsule, w/inhalation device 1 cap inhalation DAILY Rx Instructions: puncture 1 cap using device; one dose = 2 inhalations acetaminophen [Acetaminophen Extra Strength] 500 mg tablet 1,000 mg PO TID atorvastatin 80 mg Tablet 80 mg PO QHS 30 Days Qty: 30 0RF clopidogrel [Plavix] 75 mg tablet 75 mg PO DAILY Qty: 30 0RF pantoprazole [Protonix] 40 mg tablet,delayed release (DR/EC) 40 mg PO DAILY Qty: 30 0RF coenzyme Q10 [Co Q-10] 100 mg capsule 100 mg PO DAILY polyethylene glycol 3350 17 gram/dose powder 17 g PO Q24H insulin glargine [Lantus Solostar U-100 Insulin] 100 unit/mL (3 mL) insulin pen 38 unit SUBCUT QHS furosemide 40 mg tablet 40 mg PO DAILY venlafaxine 37.5 mg capsule,extended release 24hr 37.5 mg PO DAILY venlafaxine 75 mg capsule,extended release 24hr 75 mg PO DAILY magnesium oxide 400 mg (241.3 mg magnesium) tablet 400 mg PO DAILY mirtazapine 7.5 mg tablet 7.5 mg PO QHS Primary Care Provider: Geraldine Jiménez [employer] Referrals: Geraldine Jiménez [employer], [employer] [Primary Care Provider] - Activity Restrictions/Additional Instructions: Please keep your follow-up appointment with your urologist. Print Language: Lithuanian Disposition Disposition: Home, Self Care
[2024-12-18 09:35] LABS: Mucous, Urine 0 SEEN /hpf (<or=2+); Red Blood Cells-Urine 0 SEEN /hpf (0-5)
[2024-12-18 09:37] LABS: Color, Urine Yellow (Yellow); Glucose, Dipstick 1000 mg/dl (Normal); Ketone-Dipstick Negative (Negative); Leukocyte Esterase-Dipstick 100 /ul (Negative); Nitrite-Dipstick Negative (Negative); Occult Blood-Urine 10 /ul (Negative); Protein-Dipstick 15 mg/dl (Negative); Urine Bilirubin Dipstick Negative (Negative); Urine Clarity Sl. Cloudy (Clear); Urine Urobilinogen Normal (Normal)
[2024-12-18 09:44] LABS: Bacteria 1+ /hpf (None Seen); Squamous Epithelial Cells - UA 0-5 SEEN /hpf (5-10); White Blood Cells 50-100 SEEN /hpf (0-5)
[2024-12-18 11:03] VITALS: BP 138/70; PULSE 83; RESP 16; TEMP 36.3; O2SAT 97
== END 2024-12-18 11:04 | disposition home or self-care (01) ==
PROVIDERS: Emergency Provider Emergency Medicine; PCP Nurse Practitioner Adult Health; Visit Provider Emergency Medicine
DX: R10.2 Pelvic and perineal pain (principal); J44.9 Chronic obstructive pulmonary disease, unspecified; E11.9 Type 2 diabetes mellitus without complications; N30.00 Acute cystitis without hematuria; Z79.02 Long term (current) use of antithrombotics/antiplatelets; I10 Essential (primary) hypertension; R31.9 Hematuria, unspecified; Z96.0 Presence of urogenital implants; K21.9 Gastro-esophageal reflux disease without esophagitis; F17.210 Nicotine dependence, cigarettes, uncomplicated
CPT/HCPCS: 74177; 80048; 80076; 81001; 83690; 85025; 87086; 87088; 99284; Q9967; A4216

== ENCOUNTER 2024-12-28 22:02 | Emergency (ER) | payer MEDICARE, MEDICAID, SELFPAY ==
[2024-12-28] VITALS (13 sets, daily range): BP systolic 111–127; BP diastolic 51–65; PULSE 73–84; RESP 15–19; TEMP 36.7; O2SAT 93–98; BMI 27.3
[2024-12-28 22:48] LABS: Absolute Lymphocyte Count 2.13 X10^3/uL (0.83-4.51); Basophil# 0.04 X10^3/uL; Basophil% 0.8 % (0-1); Eosinophil# 0.11 X10^3/uL; Eosinophils% 2.3 % (0-5); Hematocrit 29.3 % (37-47); Hemoglobin 8.8 g/dL (12.0-15.0); Lymphocyte # 2.13 X10^3/ul (0.83-4.51); Lymphocyte % 43.7 % (19-41); Mean Corpuscular Hgb 22.6 pg (27.0-32.0); Mean Corpuscular Volume 75.3 fL (81-99); Mean Platelet Vol. 9.3 fl (6.2-12.0); Monocyte# 0.52 X10^3/uL; Monocyte% 10.7 % (0-10); NRBC Flagged by Analyzer 0 % (0-5); Neutrophil # 2.04 X10^3/uL (2.7-7.7); Neutrophil % 41.9 % (47-70); POSITIVE MORPHOLOGY YES; Platelet Count 310 K/mm3 (150-450); RBC Distribution Width CV 16.7 % (11.6-14.6); RBC Distribution Width SD 45.2 fl (35.1-43.9); Red Blood Count 3.89 M/mm3 (4.2-5.4); White Blood Count 4.9 K/mm3 (4.4-11.0)
[2024-12-28 23:00] LABS: Differential Indicated SCAN CRITERIA MET
[2024-12-28 23:02] LABS: ALB/GLOB Ratio 1.5 RATIO (0.9-2.4); AST(SGOT) 34 U/L (<=31); Alanine Aminotransfer ALT/SGPT 13 U/L (<=34); Albumin, Serum 4.4 g/dL (3.4-4.8); Alkaline Phosphatase 61 U/L (35-104); Anion Gap 12 (5-15); BUN 21 mg/dL (4-19); BUN/Creat Ratio 17.3 RATIO (10-20); Calcium,Total 9.2 mg/dL (7.6-11.0); Carbon Dioxide 23.6 mmol/L (21.0-32.0); Chloride 102 mmol/L (98-108); Creatinine, Serum 1.24 mg/dL (0.70-1.20); EST Glomerular Filtration Rate 48 (>60); Estimated Creatinine Clearance 37.06 ml/min (50-250); Globulin 2.9 g/dL (2.2-4.2); Glucose 137 mg/dL (70-99); Potassium 4.2 mmol/L (3.3-5.1); Protein, Total 7.3 g/dL (5.9-8.4); Sodium Level 137 mmol/L (133-145); Total Bilirubin 0.46 mg/dL (0.00-1.30)
--- NOTE | 2024-12-28 23:17 | CT_ITS ---
PROCEDURE: ABDOMEN/PELVIS WITHOUT CONT 12/28/2024 REASON FOR EXAM: RIGHT FLANK PAIN TECHNIQUE: Abdomen and pelvis CT without intravenous contrast. Noncontrast technique limits evaluation of the abdominal and pelvic viscera. Coronal and Sagittal reconstruction series were provided. One or more dose reduction techniques were used (e.g., Automated exposure control, adjustment of the mA and/or kV according to patient size, use of iterative reconstruction technique). PATIENT PREPARATION: Per protocol ORAL CONTRAST TYPE: None. COMPARISON: 12/18/2024 FINDINGS: The lung bases appear clear. Status post cholecystectomy. The liver, adrenal glands, pancreas and spleen appear within limits. A right-sided intrarenal interpolar calcification axial 70 is again seen which on the prior study on the delayed images did not appear to be associated with the collecting system and not clearly an intrarenal stone. This appears unchanged and there is no right hydronephrosis. There is similar appearance of left renal scarring and atrophy. Similar appearance of the previously seen perinephric stranding. A left renal cyst is again noted. Punctate calcification at the dependent aspect of the left renal pelvis is again noted and appears unchanged. No left hydronephrosis. Aortoiliac atherosclerotic calcification without abdominal aortic aneurysm. A couple of prominent left inguinal lymph nodes again seen not significantly changed. No bowel dilation or free air. Normal caliber appendix without secondary signs. The bladder appears within limits. Status post apparent hysterectomy. Bilateral small fat containing inguinal hernias without stranding again seen. No free fluid. Spondylosis/degenerative changes L4-5 with anterolisthesis, severe disc space narrowing, vacuum effect, uncovered disc, central and bilateral foraminal narrowing again noted. Sacral stimulator device again noted. CT/Abdomen/Pelvis without Cont IMPRESSION: No evidence of acute intra-abdominal process on noncontrast imaging identified as above. Reading Location: [id number]
[2024-12-28] MEDS: 0.9% Normal Saline (500mL Bag) 500 ML 999 ML IV (23:29)
[2024-12-28 23:32] LABS: Atypical Lymphocyte 1+ %; Differential Comment SCANNED
[2024-12-28 23:58] LABS: Bedside Glucose 145 mg/dL (74-106)
[2024-12-29] VITALS: BP 115/55; PULSE 84; RESP 26
[2024-12-29 00:08] LABS: Mucous, Urine 0 SEEN /hpf (<or=2+); Red Blood Cells-Urine 0 SEEN /hpf (0-5)
[2024-12-29 00:15] VITALS: PULSE 84; RESP 13; O2SAT 96
[2024-12-29 00:30] VITALS: BP 131/63; PULSE 76; RESP 19; O2SAT 95
[2024-12-29 00:32] LABS: Color, Urine Straw (Yellow); Glucose, Dipstick 1000 mg/dl (Normal); Ketone-Dipstick Negative (Negative); Leukocyte Esterase-Dipstick 25 /ul (Negative); Nitrite-Dipstick Negative (Negative); Occult Blood-Urine Negative /ul (Negative); Protein-Dipstick 15 mg/dl (Negative); Urine Bilirubin Dipstick Negative (Negative); Urine Clarity Clear (Clear); Urine Urobilinogen Normal (Normal)
[2024-12-29 00:45] VITALS: PULSE 75; RESP 16; O2SAT 93
[2024-12-29 00:56] LABS: Squamous Epithelial Cells - UA 50-100 SEEN /hpf (5-10)
[2024-12-29 00:57] LABS: Bacteria 2+ /hpf (None Seen); White Blood Cells 50-100 SEEN /hpf (0-5)
[2024-12-29 01:00] VITALS: BP 106/56; PULSE 76; RESP 18; O2SAT 92
--- NOTE | 2024-12-29 01:29 | EDS_ITS ---
HPI History of Present Illness Chief Complaint: Syncope Informant: patient Narrative Narrative: Patient is a 64-year-old female with past medical history of hypertension diabetes GERD and COPD. She states she stays at an assisted living facility. She reports that this evening she was standing outside with a group of people smoking. She states that she then developed pain along the right mid to upper abdomen. After feeling the pain she states she began to feel lightheaded and dizzy and had a syncopal event. She reports this lasted only for a few seconds and she awoke spontaneously. She reports resolution of her pain but does admit to a past history of kidney stone. She states that she wonders if she has a kidney stone once again causing the abdominal pain that made her pass out and secondary to this comes to the ER for evaluation [facility] Medical History PFO (patent foramen ovale) TIA (transient ischemic attack) GERD (gastroesophageal reflux disease) HTN (hypertension) Diabetes mellitus, type 2 Anxiety Depression COPD (chronic obstructive pulmonary disease) Hx of renal calculi Chronic neck pain Chronic back pain Home Medications ?Medication ?Instructions ?Recorded ?Last Taken ?Type acetaminophen 500 mg tablet 1,000 mg PO TID PAIN 06/1712/29/23 History (Acetaminophen Extra Strength) albuterol sulfate 2.5 mg/3 mL 2.5 mg inhalation Q8H FL N 06/17/23 Unknown History (0.083 %) solution for nebulization SHORTNESS OF BREAT H/WHEEZING budesonide-formoterol HFA 160 2 puff inhalation BID SH ORTNESS OF 06/17/23 12/29/23 History mcg-4.5 mcg/actuation aerosol BREATH inhaler (Symbicort) cholecalciferol (vitamin D3) 125 125 mcg PO TU SUPPLEM ENT 06/17/23 12/28/23 History mcg (5,000 unit) tablet (Vitamin D3) dapagliflozin propanediol 10 mg 10 mg PO DAILY BLOOD S UGARS 06/17/23 12/29/23 History tablet (Farxiga) fenofibrate nanocrystallized 48 mg 48 mg PO DAILY CHOL ESTEROL 06/17/23 12/29/23 History tablet metformin 1,000 mg tablet 1,000 mg PO BID BLOOD SUGARS 06/17/23 12/29/23 History tiotropium bromide 18 mcg capsule 1 cap inhalation LILIANA LY SHORTNESS 06/17/23 12/29/23 History with inhalation device (Spiriva OF BREATH/WHEEZING with HandiHaler) tizanidine 4 mg tablet 4 mg PO TID MUSCLE SPASMS 12/29/23 History atorvastatin 80 mg tablet 80 mg PO QHS 30 days #30 tab s 06/19/23 12/28/23 Rx clopidogrel 75 mg tablet (Plavix) 75 mg PO DAILY BLOOD THINNER #30 06/19/23 12/29/23 Rx tabs pantoprazole 40 mg tablet,delayed 40 mg PO DAILY ACID REFLUX #30 tabs 06/19/23 12/29/23 Rx release (Protonix) coenzyme Q10 100 mg capsule (Co 100 mg PO DAILY SUPPLE MENT 12/29/23 12/29/23 History Q-10) insulin glargine 100 unit/mL (3 38 unit subcut QHS RAJENDRA BETES 12/29/23 12/27/23 History mL) subcutaneous pen (Lantus Solostar U-100 Insulin) polyethylene glycol 3350 17 17 g PO Q24H CONSTIPATION 12/29/23 12/29/23 History gram/dose oral powder furosemide 40 mg tablet 40 mg PO DAILY 12/18/24 Unkn own History magnesium oxide 400 mg (241.3 mg 400 mg PO DAILY 12/18 Unknown History magnesium) tablet mirtazapine 7.5 mg tablet 7.5 mg PO QHS 12/18/24 Unkno wn History venlafaxine 37.5 mg 37.5 mg PO DAILY 12/18/24 Un known History capsule,extended release 24 hr Allergy/AdvReac Type Severity Reaction Status Date / Time codeine Allergy Intermediate Rash Verified 12/28/24 22:03 Sulfa (Sulfonamide Allergy Rash Verified 12/28/24 22:03 Antibiotics) Family History Other Back pain with history of spinal surgery Social History Smoking Status: Current every day smoker tobacco type: cigarettes ROS ROS ED Constitutional Constitutional ED: Denies chills or fever(s) Eyes Eyes: Denies blurry vision or change in vision ENT ENT ED: Denies sore throat Cardiovascular Cardiovascular: Reports other Details: Positive syncope ; Denies chest pain, palpitations or racing heartbeat Respiratory/Chest Respiratory/Chest: Denies cough or dyspnea Gastrointestinal Gastrointestinal: Reports abdominal pain; Denies diarrhea, nausea or vomiting Genitourinary Genitourinary ED: Denies dysuria Musculoskeletal Musculoskeletal: Denies back pain or myalgias Integumentary Denies rash Neurologic Neurologic: Denies headache(s), paresthesias or weakness Psychiatric Psychiatric: Reports anxiety and depression Hematologic/Lymphatic Hematologic/Lymphatic: Denies easy bleeding or easy bruising EXAM Physical Exam Const Vital Signs: 12/28/24 22:11 12/28/24 22:24 12/28/24 22:30 Temperature 98.0 F Temperature Source Oral Pulse Rate 78 76 73 Pulse Rate [Lying] Pulse Rate [Sitting (for 1 minute prior to obtaining)] Pulse Rate [Standing (for 1 minute prior to obtaining)] Respiratory Rate 15 17 18 Blood Pressure 126/58 H 124/65 H Blood Pressure [Lying] Blood Pressure [Sitting (for 1 minute prior to obtaining)] Blood Pressure [Standing (for 1 minute prior to obtaining)] Blood Pressure Mean 80 82 Blood Pressure Mean [Lying] Blood Pressure Mean [Sitting (for 1 minute prior to obtaining)] Blood Pressure Mean [Standing (for 1 minute prior to obtaining)] Pulse Ox 98 94 93 Oxygen Delivery Method Room Air 12/28/24 22:45 12/28/24 23:00 12/28/24 23:02 Temperature Temperature Source Pulse Rate 78 77 Pulse Rate [Lying] Pulse Rate [Sitting (for 1 minute prior to obtaining)] Pulse Rate [Standing (for 1 minute prior to obtaining)] Respiratory Rate 17 18 Blood Pressure 121/57 H 115/55 L 127/64 H Blood Pressure [Lying] Blood Pressure [Sitting (for 1 minute prior to obtaining)] Blood Pressure [Standing (for 1 minute prior to obtaining)] Blood Pressure Mean 77 74 85 Blood Pressure Mean [Lying] Blood Pressure Mean [Sitting (for 1 minute prior to obtaining)] Blood Pressure Mean [Standing (for 1 minute prior to obtaining)] Pulse Ox 96 Oxygen Delivery Method 12/28/24 23:15 12/28/24 23:22 12/28/24 23:24 Temperature Temperature Source Pulse Rate 78 79 Pulse Rate [Lying] Pulse Rate [Sitting (for 1 minute prior to obtaining)] Pulse Rate [Standing (for 1 minute prior to obtaining)] Respiratory Rate 17 18 Blood Pressure 111/62 127/64 H Blood Pressure [Lying] Blood Pressure [Sitting (for 1 minute prior to obtaining)] Blood Pressure [Standing (for 1 minute prior to obtaining)] Blood Pressure Mean 77 81 Blood Pressure Mean [Lying] Blood Pressure Mean [Sitting (for 1 minute prior to obtaining)] Blood Pressure Mean [Standing (for 1 minute prior to obtaining)] Pulse Ox 94 97 Oxygen Delivery Method Room Air 12/28/24 23:25 12/28/24 23:27 12/28/24 23:30 Temperature Temperature Source Pulse Rate 77 77 Pulse Rate [Lying] 77 Pulse Rate [Sitting (for 1 minute prior to obtaining)] 79 Pulse Rate [Standing (for 1 minute prior to obtaining)] 84 Respiratory Rate 17 19 H Blood Pressure 123/56 H 115/57 L Blood Pressure [Lying] 123/56 H Blood Pressure [Sitting (for 1 minute prior to obtaining)] 127/64 H Blood Pressure [Standing (for 1 minute prior to obtaining)] 115/51 L Blood Pressure Mean 75 74 Blood Pressure Mean [Lying] 78 Blood Pressure Mean [Sitting (for 1 minute prior to obtaining)] 85 Blood Pressure Mean [Standing (for 1 minute prior to obtaining)] 72 Pulse Ox 97 96 Oxygen Delivery Method 12/28/24 23:30 12/28/24 23:39 12/28/24 23:45 Temperature Temperature Source Pulse Rate 83 75 Pulse Rate [Lying] Pulse Rate [Sitting (for 1 minute prior to obtaining)] Pulse Rate [Standing (for 1 minute prior to obtaining)] Respiratory Rate 19 H 15 Blood Pressure 119/64 Blood Pressure [Lying] Blood Pressure [Sitting (for 1 minute prior to obtaining)] Blood Pressure [Standing (for 1 minute prior to obtaining)] Blood Pressure Mean 81 Blood Pressure Mean [Lying] Blood Pressure Mean [Sitting (for 1 minute prior to obtaining)] Blood Pressure Mean [Standing (for 1 minute prior to obtaining)] Pulse Ox 96 Oxygen Delivery Method 12/29/24 00:00 12/29/24 00:15 12/29/24 00:30 Temperature Temperature Source Pulse Rate 84 84 76 Pulse Rate [Lying] Pulse Rate [Sitting (for 1 minute prior to obtaining)] Pulse Rate [Standing (for 1 minute prior to obtaining)] Respiratory Rate 26 H 13 19 H Blood Pressure 115/55 L 131/63 H Blood Pressure [Lying] Blood Pressure [Sitting (for 1 minute prior to obtaining)] Blood Pressure [Standing (for 1 minute prior to obtaining)] Blood Pressure Mean 72 84 Blood Pressure Mean [Lying] Blood Pressure Mean [Sitting (for 1 minute prior to obtaining)] Blood Pressure Mean [Standing (for 1 minute prior to obtaining)] Pulse Ox 96 95 Oxygen Delivery Method 12/29/24 00:45 12/29/24 01:00 12/29/24 01:44 Temperature 97.8 F Temperature Source Pulse Rate 75 76 63 Pulse Rate [Lying] Pulse Rate [Sitting (for 1 minute prior to obtaining)] Pulse Rate [Standing (for 1 minute prior to obtaining)] Respiratory Rate 16 18 16 Blood Pressure 106/56 L 103/47 L Blood Pressure [Lying] Blood Pressure [Sitting (for 1 minute prior to obtaining)] Blood Pressure [Standing (for 1 minute prior to obtaining)] Blood Pressure Mean 72 65 Blood Pressure Mean [Lying] Blood Pressure Mean [Sitting (for 1 minute prior to obtaining)] Blood Pressure Mean [Standing (for 1 minute prior to obtaining)] Pulse Ox 93 92 96 Oxygen Delivery Method Positive well nourished and well developed General Appearance ED: well developed; Negative for pallor HEENT HEENT Narrative: Normocephalic atraumatic Eyes PERRL and EOMs intact bilaterally General Eye ED: Negative for pale conjunctiva or scleral icterus Neck supple Neck Narrative: No nuchal rigidity or meningeal signs No bony deformity or step-off of the cervical spine no midline tenderness to palpation Chest Wall palpation of chest normal Resp normal respiratory effort Resp Narrative: Breath sounds are diminished throughout with faint rhonchi in the bilateral lower lobes consistent with history of COPD but no signs of respiratory distress Cardio regular rate and regular rhythm Rate: other Other Details: Heart is regular rate and rhythm Radial and carotid pulses are equal and symmetric GI non-distended and no masses GI Narrative: Abdomen is soft and nondistended with hypoactive bowel sounds. There is pain on palpation along the right lateral abdomen without voluntary guarding or rigidity or pulsatile mass. Auscultation: hypoactive bowel sounds Palpation: soft Back/Spine no CVA tenderness Extremity normal to inspection Extremity Narrative: Pelvis is stable there is no shortening or external rotation of either lower extremity No asymmetric edema no pitting edema negative Homans' sign bilaterally Neuro oriented x3, CN's II-XII intact bilaterally and no sensory deficits noted Sensorium / Orientation: alert Motor Exam: strength 5/5 throughout Psych mental status grossly normal Skin no rashes or lesions noted and no wounds General Skin Exam: Negative for jaundice or pallor MDM MDM MDM Narrative Medical decision making narrative: Patient presented to the ER with stable vitals. She reported syncopal event but states this only occurred after she developed right sided abdominal pain. She denied striking her head nor does she take a blood thinner and her neurologic exam is normal so have low concern for acute CVA or brain bleed and therefore there is no need for head CT. In order to rule out findings of acute kidney injury UTI/pyelonephritis electrolyte abnormality or acute blood loss anemia I did elect to perform basic laboratory studies. In order to check for cardio vascular ischemia/ACS or cardiac dysrhythmia an EKG was obtained. EKG revealed no ischemic changes or acute dysrhythmia. Blood work showed anemia and hemoglobin of 8.8 but chart review reveals she has baseline anemia with her last value being approximately 9.8. As she reported she only had the bout of syncope after abdominal discomfort and she has a history of kidney stone there is concern that this was repeat stone and therefore a CT was obtained. CT revealed chronic findings without acute changes. On reevaluation her blood pressure remains normal heart rate is normal as well and her neurologic exam is normal and she states there has been no recurrence of the pain. Therefore at this time I do not feel the need for further workup as she does not have findings of acute CVA her blood value is low but above the value of 7 requiring blood transfusion and there is no internal abdominal pathology such as kidney stone. The urine sample does show +2 bacteria but is grossly contaminated with skin cells and she does not have dysuria and therefore I do not feel there is need to treat this. Therefore at this time with spontaneous resolution of symptoms and overall negative workup patient is otherwise safe for discharge History & Record Review Discussion w/independent historian: Patient Lab Data Attestation: I reviewed the patient's lab results. Labs: Laboratory Results - last 24 hr 12/28/24 12/28/24 12/28/24 00:02 22:25 23:41 WBC 4.9 RBC 3.89 L Hgb 8.8 L Hct 29.3 L MCV 75.3 L MCH 22.6 L MCHC 30.0 L RDW Std Deviation 45.2 H RDW Coeff of Elo 16.7 H Plt Count 310 MPV 9.3 Immature Gran % (Auto) 0.600 Neut % (Auto) 41.9 L Lymph % (Auto) 43.7 H Davison % (Auto) 10.7 H Eos % (Auto) 2.3 Baso % (Auto) 0.8 Absolute Neuts (auto) 2.0 Absolute Lymphs (auto) 2.13 Nucleated RBC % 0 Differential Comment SCANNED Atypical Lymphocytes 1+ Sodium 137 Potassium 4.2 Chloride 102 Carbon Dioxide 23.6 Anion Gap 12 BUN 21 H Creatinine 1.24 H Estim Creat Clear Calc 37.06 L Est GFR (MDRD) Non-Af 48 L BUN/Creatinine Ratio 17.3 Glucose 137 H Calcium 9.2 Total Bilirubin 0.46 AST 34 H ALT 13 Alkaline Phosphatase 61 Total Protein 7.3 Albumin 4.4 Globulin 2.9 Albumin/Globulin Ratio 1.5 Urine Color Straw Urine Clarity Clear Urine pH 8.0 Ur Specific Bandon 1.010 Urine Protein 15 H Urine Glucose (UA) 1000 H Urine Ketones Negative Urine Occult Blood Negative Urine Nitrite Negative Urine Bilirubin Negative Urine Urobilinogen Normal Ur Leukocyte Esterase 25 H Urine RBC 0 SEEN Urine WBC 50-100 SEEN Ur Squamous Epith Cells 50-100 SEEN Urine Bacteria 2+ Urine Mucus 0 SEEN POC Glucose 145 H Radiography Diagnostic Testing: Clinical Impression(s) from Imaging Studies Abdomen/Pelvis CT 12/28/24 23:17 IMPRESSION: No evidence of acute intra-abdominal process on noncontrast imaging identified as above. Reading Location: [facility] Discharge Plan Triage Chief Complaint: Syncope ED Provider: Jose Luis Inman Dx/Rx/DC Orders Clinical Impression: Syncope, Nonspecific abdominal pain, Anemia, GERD (gastroesophageal reflux disease), COPD (chronic obstructive pulmonary disease), Diabetes mellitus, type 2 Instructions: Abdominal Pain, Anemia, Causes of Syncope Prescriptions: No Action albuterol sulfate 2.5 mg /3 mL (0.083 %) solution for nebulization 2.5 mg inhalation Q8H PRN (Reason: SHORTNESS OF BREATH/WHEEZING ) tizanidine 4 mg tablet 4 mg PO TID metformin 1,000 mg tablet 1,000 mg PO BID fenofibrate nanocrystallized 48 mg tablet 48 mg PO DAILY budesonide-formoterol [Symbicort] 160-4.5 mcg/actuation HFA aerosol inhaler 2 puff INHALATION BID dapagliflozin propanediol [Farxiga] 10 mg tablet 10 mg PO DAILY cholecalciferol (vitamin D3) [Vitamin D3] 125 mcg (5,000 unit) tablet 125 mcg PO TU tiotropium bromide [Spiriva with HandiHaler] 18 mcg capsule, w/inhalation device 1 cap inhalation DAILY Rx Instructions: puncture 1 cap using device; one dose = 2 inhalations acetaminophen [Acetaminophen Extra Strength] 500 mg tablet 1,000 mg PO TID atorvastatin 80 mg Tablet 80 mg PO QHS 30 Days Qty: 30 0RF clopidogrel [Plavix] 75 mg tablet 75 mg PO DAILY Qty: 30 0RF pantoprazole [Protonix] 40 mg tablet,delayed release (DR/EC) 40 mg PO DAILY Qty: 30 0RF coenzyme Q10 [Co Q-10] 100 mg capsule 100 mg PO DAILY polyethylene glycol 3350 17 gram/dose powder 17 g PO Q24H insulin glargine [Lantus Solostar U-100 Insulin] 100 unit/mL (3 mL) insulin pen 38 unit SUBCUT QHS Patient Comments: adjust according to blood sugar furosemide 40 mg tablet 40 mg PO DAILY venlafaxine 37.5 mg capsule,extended release 24hr 37.5 mg PO DAILY magnesium oxide 400 mg (241.3 mg magnesium) tablet 400 mg PO DAILY mirtazapine 7.5 mg tablet 7.5 mg PO QHS Primary Care Provider: Geraldine Jiménez ANESTHESIA RESIDENT Referrals: Geraldine Jiménez ANESTHESIA RESIDENT, ANESTHESIA RESIDENT-C [Primary Care Provider] - Activity Restrictions/Additional Instructions: Please continue all of your home medications as directed by your doctor and return to the ER should you have any further concerns Print Language: Croatian Disposition Disposition: Home, Self Care
[2024-12-29 01:44] VITALS: BP 103/47; PULSE 63; RESP 16; TEMP 36.6; O2SAT 96
== END 2024-12-29 06:41 | disposition home or self-care (01) ==
PROVIDERS: Emergency Provider Emergency Medicine; PCP Nurse Practitioner Adult Health; Visit Provider Emergency Medicine
DX: R55 Syncope and collapse (principal); J44.9 Chronic obstructive pulmonary disease, unspecified; E11.9 Type 2 diabetes mellitus without complications; D64.9 Anemia, unspecified; R10.9 Unspecified abdominal pain; K21.9 Gastro-esophageal reflux disease without esophagitis; I10 Essential (primary) hypertension; F17.210 Nicotine dependence, cigarettes, uncomplicated
CPT/HCPCS: 74176; 80053; 81001; 82962; 85025; 93005; 96360; 96361; 99285; A4216

== ENCOUNTER → 2025-01-02 | Outpatient (CLI) | payer MEDICARE, MEDICAID, SELFPAY ==
--- NOTE | 2025-01-02 10:51 | BI_ITS ---
EXAM: SCRN MAMM (CAD)W/CORDELL BILAT DATE: 01/02/2025 CLINICAL HISTORY: F, Age 64 y/o , SCREENING BREAST CANCER RISK ASSESSMENT: Has not been calculated. TECHNIQUE: Bilateral screening digital breast tomosynthesis with 2D and 3D images. Computer aided detection. COMPARISON: Prior exam(s) dated 10/16/2016. FINDINGS: TISSUE DENSITY: The breast tissue is heterogenously dense, which may obscure small masses. Bilateral Breast Mammographic Findings: There are no suspicious masses, suspicious cluster of microcalcifications, architectural distortion or secondary signs of malignancy is identified in either breast. Benign-appearing round calcifications are seen in both breasts. Stable nodular masslike densities are seen in both breasts. BI/SCRN MAMM (CAD)W/CORDELL BILAT IMPRESSION: OVERALL FINAL ASSESSMENT: BIRADS 2 BENIGN FINDING RECOMMENDATION: Routine annual follow-up in 1 Year A letter with findings and recommendations will be mailed to the patient. Reading Location: [id number]
== END | disposition home or self-care (01) ==
LOC: OPBI 10:50
PROVIDERS: PCP Nurse Practitioner Adult Health; Referring Provider Nurse Practitioner Adult Health; Visit Provider Nurse Practitioner Adult Health
DX: Z12.31 Encounter for screening mammogram for malignant neoplasm of breast (principal)
CPT/HCPCS: 77063; 77067

== ENCOUNTER 2025-05-22 10:53 | Day surgery (SDC) | payer MEDICARE, MEDICAID, SELFPAY ==
--- OUTSIDE RECORDS SUMMARY | 2025-01-31 13:01 | XMS RPT_ITS ---
Author Name Auto Generated Organization OH[facility] Care Team Providers Care Programmer Analyst [facility] It Name Role Phone CHRISTINA BUTLER Referring Unavailab JULIO Peck Primary Care Unavailab CHRISTINA Hinkle Referring Unavailab le JULIO GUSTAFSON Primary Care Unavailab le AIRAM PAULA Attending Unavailable JULIO GUSTAFSON Primary Care Unavailab CHRISTINA Hinkle Attending Unavailab JULIO Peck Primary Care Unavailab CHRISTINA Hinkle Attending Unavailab JULIO Peck Primary Care Unavailab le PROBLEMS DATE TYPE CONDITION / CODE ATTENDING STATUS [facility] 01/31/2025 Active Urinary frequenc y / R35.0(ICD-10) CHRISTINA BUTLER [facility] 01/03/2025 Active Mixed incontinen ce / N39.46(ICD-10) NA Active [facility] 01/03/2025 Active Kidney stones / N20.0(ICD-10) NA Active [facility] 01/03/2025 Active Benign essential microscopic hematuria / R31.1(ICD-10) NA Active [facility] 08/18/2024 Active Sacral neurostim ulator in situ / Z96.82(ICD-10) AIRAM PAULA [facility] 08/18/2024 Active Urinary urgency / R39.15(ICD-10) AIRAM PAULA [facility] 08/18/2024 Active Incomplete bladd er emptying / R33.9(ICD-10) AIRAM PAULA Active [facility] PROCEDURES No Procedure Records Found RESULTS PROGRESS Observed: 01/31/2025 1:37 PM Status: COMPLETED Source: [facility] HNO ID: [id number] Author: CHRISTINA BUTLER MD Service: ? Author Type: Physician Type: Progress Notes Filed: 01/31/2025 13:44 Note Text: Dominik Mendez is a 64 year old female who presents with follow-up cystoscopy. The bladder wall looks pretty good and is fairly smooth residual was about 239 so she actually looks pretty good does have a InterStim apparently CT looks pretty good minimum but no stones in her kidney little bit of vascular calcification on the right but overall looks pretty good Review of Systems- Reviewed and otherwise non-contributory. Ht 149.9 cm (4' 11) BMI 25.65 kg/m? PAST MEDICAL HISTORY Diagnosis Date BMI 29.0-29.9,adult CKD (chronic kidney disease) COPD (chronic obstructive pulmonary disease) (HCC) GERD (gastroesophageal reflux disease) HLD (hyperlipidemia) Hypertension Kidney stones Muscle cramps Neuropathy, peripheral Ovarian cancer (HCC) Overweight Post-operative nausea and vomiting Pulmonary embolism (HCC) Stroke (cerebrum) (HCC) Type 2 diabetes mellitus with hyperglycemia (HCC) Urge incontinence PAST SURGICAL HISTORY Procedure Laterality Date ANKLE SURGERY HX Left 2018 BACK SURGERY HX 2015 CHOLECYSTECTOMY 1999 HYSTERECTOMY HX 2000 INGUINAL HERNIA REPAIR HX Bilateral INTERSTIM,NEUROSTIM 3023 2016 KIDNEY STONE SURGERY HX 2020 PROCEDURE (SPECIFY) 2015 spinal fusion cervical TUBAL LIGATION HX 1980 Current Outpatient Medications Medication Sig Dispense Refill clopidogrel (PLAVIX) 75 mg tablet Take 75 mg by mouth once daily. magnesium oxide (MAG-OX) 400 mg (241.3 mg magnesium) tablet Take 400 mg by mouth once daily. fluconazole (DIFLUCAN) 150 mg tablet Take 1 tablet by mouth once daily. 3 tablet 0 mupirocin (BACTROBAN) 2 % ointment buPROPion XL (WELLBUTRIN XL) 150 mg 24 hr tablet Take 150 mg by mouth once daily. acetaminophen (TYLENOL EX STR RAPID RELEASE ORAL) Take by mouth as needed. venlafaxine ER (EFFEXOR XR) 75 mg 24 hr capsule Take 75 mg by mouth once daily. Diaper,Brief, Adult,Disposable (DEPEND UNDERWEAR S-M) 1 Each four times daily. 360 Each 3 LANTUS SOLOSTAR U-100 INSULIN 100 unit/mL (3 mL) Inject 38 Units subcutaneously daily at bedtime. fenofibrate nanocrystallized (TRICOR) 48 mg tablet SPIRIVA WITH HANDIHALER 18 mcg inhalation capsule coenzyme Q10 (COENZYME Q-10) 100 mg cap capsule tiZANidine (ZANAFLEX) 4 mg tablet three times a day. FARXIGA 10 mg tablet atorvastatin (LIPITOR) 80 mg tablet daily at bedtime. ergocalciferol 50,000 unit capsule (VITAMIN D2, DRISDOL) pantoprazole DR (PROTONIX) 40 mg tablet metFORMIN (GLUCOPHAGE) 1,000 mg tablet Take 1 tablet by mouth twice daily with meals. 60 tablet 3 budesonide-formoterol (SYMBICORT) 160-4.5 mcg/actuation inhaler Inhale 2 Puffs as instructed twice daily. albuterol (PROVENTIL) 2.5 mg/3 mL nebulizer solution Inhale 2.5-5 mg as instructed as directed. fluticasone (FLONASE) 50 mcg/actuation nasal spray Use 1 [place] in each nostril once daily. POLYETHYLENE GLYCOL 3350 (MIRALAX ORAL) Take by mouth as needed. No current facility-administered medications for this visit. (R35.0) Urinary frequency (primary encounter diagnosis) (R39.15) Urinary urgency (N20.0) Kidney stones Plan kub ua year Christina Butler MD This note was generated with voice recognition software and may contain errors, including spelling, grammar, syntax and misrecognition of what was dictated, that are not fully corrected. BACTERIA UR CULT Observed: 01/31/2025 1:31 PM Status: F Source: [facility] CULTURE, URINE: <10,000 CFU/ml Normal Urogenital Julianna Performed By: #### 630-4 ### # [facility] CLIA [id number] [address] [place] [address] [place] PROGRESS Observed: 01/31/2025 1:30 PM Status: COMPLETED Source: [facility] HNO ID: [id number] Author: TAD CARRERO LPN Service: ? Author Type: LICENSED NURSE Type: Progress Notes Filed: 01/31/2025 13:44 Note Text: Patient presents today for a bladder scan. Scan performed without difficulty. Residual urine amount is 239ml. We put approximately 50cc in for the cysto. Tad Carrero LPN PROGRESS Observed: 01/31/2025 1:07 PM Status: COMPLETED Source: [facility] HNO ID: [id number] Author: TAD CARRERO LPN Service: ? 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 Scan performed without difficulty. Residual urine amount is 239ml. We put approximately 50cc in for the cysto. KAITLIN Miner Bradford Thomas, MD 01/31/2025 1:44 PM Signed Dominik Mendez is a 64 year old female who presents with follow-up cystoscopy. The bladder wall looks pretty good and is fairly smooth residual was about 239 so she actually looks pretty good does have a InterStim apparently CT looks pretty good minimum but no stones in her kidney little bit of vascular calcification on the right but overall looks pretty good Review of Systems- Reviewed and otherwise non-contributory. Ht 149.9 cm (4' 11) BMI 25.65 kg/m? PAST MEDICAL HISTORY Diagnosis Date BMI 29.0-29.9,adult CKD (chronic kidney disease) COPD (chronic obstructive pulmonary disease) (HCC) GERD (gastroesophageal reflux disease) HLD (hyperlipidemia) Hypertension Kidney stones Muscle cramps Neuropathy, peripheral Ovarian cancer (HCC) Overweight Post-operative nausea and vomiting Pulmonary embolism (HCC) Stroke (cerebrum) (HCC) Type 2 diabetes mellitus with hyperglycemia (HCC) Urge incontinence PAST SURGICAL HISTORY Procedure Laterality Date ANKLE SURGERY HX Left 2018 BACK SURGERY HX 2015 CHOLECYSTECTOMY 1999 HYSTERECTOMY HX 2000 INGUINAL HERNIA REPAIR HX Bilateral INTERSTIM,NEUROSTIM 3023 2016 KIDNEY STONE SURGERY HX 2020 PROCEDURE (SPECIFY) 2014 spinal fusion cervical TUBAL LIGATION HX 1979 Current Outpatient Medications Medication Sig Dispense Refill clopidogrel (PLAVIX) 75 mg tablet Take 75 mg by mouth once daily. magnesium oxide (MAG-OX) 400 mg (241.3 mg magnesium) tablet Take 400 mg by mouth once daily. fluconazole (DIFLUCAN) 150 mg tablet Take 1 tablet by mouth once daily. 3 tablet 0 mupirocin (BACTROBAN) 2 % ointment buPROPion XL (WELLBUTRIN XL) 150 mg 24 hr tablet Take 150 mg by mouth once daily. acetaminophen (TYLENOL EX STR RAPID RELEASE ORAL) Take by mouth as needed. venlafaxine ER (EFFEXOR XR) 75 mg 24 hr capsule Take 75 mg by mouth once daily. Diaper,Brief, Adult,Disposable (DEPEND UNDERWEAR S-M) 1 Each four times daily. 360 Each 3 LANTUS SOLOSTAR U-100 INSULIN 100 unit/mL (3 mL) Inject 38 Units subcutaneously daily at bedtime. fenofibrate nanocrystallized (TRICOR) 48 mg tablet SPIRIVA WITH HANDIHALER 18 mcg inhalation capsule coenzyme Q10 (COENZYME Q-10) 100 mg cap capsule tiZANidine (ZANAFLEX) 4 mg tablet three times a day. FARXIGA 10 mg tablet atorvastatin (LIPITOR) 80 mg tablet daily at bedtime. ergocalciferol 50,000 unit capsule (VITAMIN D2, DRISDOL) pantoprazole DR (PROTONIX) 40 mg tablet metFORMIN (GLUCOPHAGE) 1,000 mg tablet Take 1 tablet by mouth twice daily with meals. 60 tablet 3 budesonide-formoterol (SYMBICORT) 160-4.5 mcg/actuation inhaler Inhale 2 Puffs as instructed twice daily. albuterol (PROVENTIL) 2.5 mg/3 mL nebulizer solution Inhale 2.5-5 mg as instructed as directed. fluticasone (FLONASE) 50 mcg/actuation nasal spray Use 1 [place] in each nostril once daily. POLYETHYLENE GLYCOL 3350 (MIRALAX ORAL) Take by mouth as needed. No current facility-administered medications for this visit. (R35.0) Urinary frequency (primary encounter diagnosis) (R39.15) Urinary urgency (N20.0) Kidney stones Plan kub ua year Christina Butler MD This note was generated with voice recognition software and may contain errors, including spelling, grammar, syntax and misrecognition of what was dictated, that are not fully corrected. Allergies As of Date: 01/31/2025 Noted Allergy Reaction CODEINE 01/28/2016 16 - Unknown Comments: Had the comment of myrbetriq SULFA DRUGS (SULFA (SULFONAMIDE A*01/28/2016 16 - Unknown Date Reviewed: 01/31/2025 Reviewed by: Tad Carrero LPN - Fully Assessed Reason for Visit: Cystoscopy-1 [303] Radiology US [1490] Cmt: CT scan results Primary Visit Diagnosis:Urinary frequency [R35.0] Other Visit Diagnoses:Urinary urgency [R39.15] Kidney stones [N20.0] Order(s):[] ciprofloxacin HCl 500 mg tab(s) (CIPRO)Disp: Rfl: BLADDER SCAN [[id number]] Order #: [id number] BACTERIAL CULTURE, URINE [SQURCUL] Order #: [id number]. #:[id number] XR ABDOMEN 1V SUPINE [[id number]] Order #: [id number] FUTURE Prescriptions as of 01/31/2025 - clopidogrel (PLAVIX) 75 mg tablet Take 75 mg by mouth once daily. - magnesium oxide (MAG-OX) 400 mg (241.3 mg magnesium) tablet Take 400 mg by mouth once daily. - fluconazole (DIFLUCAN) 150 mg tablet Take 1 tablet by mouth once daily. - mupirocin (BACTROBAN) 2 % ointment - buPROPion XL (WELLBUTRIN XL) 150 mg 24 hr tablet Take 150 mg by mouth once daily. - acetaminophen (TYLENOL EX STR RAPID RELEASE ORAL) Take by mouth as needed. - venlafaxine ER (EFFEXOR XR) 75 mg 24 hr capsule Take 75 mg by mouth once daily. - Diaper,Brief, Adult,Disposable (DEPEND UNDERWEAR S-M) 1 Each four times daily. - LANTUS SOLOSTAR U-100 INSULIN 100 unit/mL (3 mL) Inject 38 Units subcutaneously daily at bedtime. - fenofibrate nanocrystallized (TRICOR) 48 mg tablet - SPIRIVA WITH HANDIHALER 18 mcg inhalation capsule - coenzyme Q10 (COENZYME Q-10) 100 mg cap capsule - tiZANidine (ZANAFLEX) 4 mg tablet three times a day. - FARXIGA 10 mg tablet - atorvastatin (LIPITOR) 80 mg tablet daily at bedtime. - ergocalciferol 50,000 unit capsule (VITAMIN D2, DRISDOL) - pantoprazole DR (PROTONIX) 40 mg tablet - metFORMIN (GLUCOPHAGE) 1,000 mg tablet Take 1 tablet by mouth twice daily with meals. - budesonide-formoterol (SYMBICORT) 160-4.5 mcg/actuation inhaler Inhale 2 Puffs as instructed twice daily. - albuterol (PROVENTIL) 2.5 mg/3 mL nebulizer solution Inhale 2.5-5 mg as instructed as directed. - fluticasone (FLONASE) 50 mcg/actuation nasal spray Use 1 [place] in each nostril once daily. - POLYETHYLENE GLYCOL 3350 (MIRALAX ORAL) Take by mouth as needed. Problem List As Of Date 01/31/2025 Noted Resolved Type 2 diabetes mellitus with hyperglycemia (HC* Hypertension [I10] Overweight [E66.3] Diabetic polyneuropathy associated with type 2 * Pre-op exam [Z01.818] 04/05/2024 Urge incontinence [N39.41] 04/05/2024 Cerebral infarction, unspecified (HCC) [I63.9] 06/19/2023 06/25/2024 Chronic kidney disease [N18.9] 03/04/2016 Chronic obstructive pulmonary disease (HCC) [J4*03/04/2016 Gastroesophageal reflux disease [K21.9] 06/22/2023 Hyperlipidemia [E78.5] 04/05/2024 Pulmonary embolism (HCC) [I26.99] 04/05/2024 Nicotine use [Z72.0] 04/05/2024 TERESITA (obstructive sleep apnea) [G47.33] 04/05/2024 Other chest pain [R07.89] 04/05/2024 CAD (coronary artery disease) [I25.10] 04/05/2024 Pulmonary HTN (HCC) [I27.20] 04/05/2024 PFO (patent foramen ovale) [Q21.12] 04/05/2024 Sacral nerve stimulator present [Z96.82] 05/23/2024 Prescriptions ordered this encounter Disp Refills Start End CIPROFLOXACIN 500 MG TABLET 01/31/2025 01/31/2025 Route: PO Medications Discontinued During This Encounter Prescriptions - albuterol HFA (PROVENTIL HFA, VENTOLIN HFA) 90 mcg/actuation inhaler (Discontinued) Inhale 2 Puffs as instructed three times a day. - clopidogrel bisulfate (PLAVIX ORAL) (Discontinued) Take 75 mg by mouth once daily. Disposition: Return for kub ua 6 m. Follow-up and Disposition History for Encounter Date Provider Department Center 01/31/2025 [id number]-JGYZYCHRISTINA BUTLER [facility] Status:Closed by CHRISTINA BUTLER on 01/31/25 CT ABD/PEL WO IVCON Observed: 01/03/2025 1:28 PM Status: F Source: [facility] * * *Final Report* * * DATE OF EXAM: Jan 03 2025 1:28PM [facility] 0531 - CT ABD/PEL WO IVCON / PROCEDURE REASON: multiple diagnoses * * * * Physician Interpretation * * * * EXAMINATION: CT ABDOMEN AND PELVIS WITHOUT IV CONTRAST CLINICAL HISTORY: Mixed incontinence. Kidney stones. Microscopic hematuria. TECHNIQUE: Non-IV contrast imaging of the abdomen and pelvis was performed using standard technique, scanning from just above the dome of the diaphragm to the symphysis pubis. Unenhanced imaging is limited for the evaluation of some intra-abdominal and pelvic pathology. MQ: CTAPWO_3 Contrast: IV: None : ml of CT Radiation dose: Integrated Dose-length product (DLP) for this visit = 436 mGy*cm. CT Dose Reduction Employed: Automated exposure control(AEC) and iterative recon COMPARISON: 01/05/2024 RESULT: Abdomen / Pelvis: Liver: Unremarkable. Biliary: Gallbladder is surgically absent. No ductal dilatation. Spleen: No splenomegaly. Pancreas: Unremarkable. Adrenals: No mass. Kidneys: Stable 4 mm right interpolar calculus. Stable 19 mm benign-appearing cyst posteriorly in the left kidney. No hydronephrosis GI Tract: No bowel dilation. Normal appendix. Moderate colonic stool content. Lymph Nodes: No lymphadenopathy. Mesentery/peritoneum: No ascites. Retroperitoneum: No mass. Vasculature: Arterial atherosclerotic disease without aneurysm. Pelvis: No mass or ascites. Hysterectomy Bones/Soft Tissues: Advanced L4-5 degenerative disc disease and lower lumbar facet arthrosis with stable grade 1 L4-5 anterolisthesis. Right-sided stimulator with lead in the posterior right sacral region. Lower thorax: Unremarkable. Localizer images: No additional findings. IMPRESSION: No acute abnormality Yard Worker: MACARIO Transcribe Date/Time: Jan 09 2025 11:19A Dictated by : CHRIS MUNGUIA MD This examination was interpreted and the report reviewed and electronically signed by: CHRIS MUNGUIA MD on Jan 09 2025 11:23AM EST [id number] BACTERIA UR CULT Observed: 12/20/2024 2:47 PM Status: F Source: [facility] ORGANISM ID: 1 50,000-<100,000 CFU/ml Shahida albicans Performed By: #### 630-4 ### # [facility] CLIA [id number] [address] [place] PROGRESS Observed: 12/20/2024 12:05 PM Status: COMPLETED Source: [facility] HNO ID: [id number] Author: CHRISTINA BUTLER MD Service: ? Author Type: Physician Type: Progress Notes Filed: 12/20/2024 12:10 Note Text: Dominik Mendez is a 64 year old female who presents with follow-up of her kidney stones. 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 Bus 226 Review of Systems- Reviewed and otherwise non-contributory. There were no vitals taken for this visit. PAST MEDICAL HISTORY Diagnosis Date BMI 29.0-29.9,adult CKD (chronic kidney disease) COPD (chronic obstructive pulmonary disease) (HCC) GERD (gastroesophageal reflux disease) HLD (hyperlipidemia) Hypertension Kidney stones Muscle cramps Neuropathy, peripheral Ovarian cancer (HCC) Overweight Post-operative nausea and vomiting Pulmonary embolism (HCC) Stroke (cerebrum) (HCC) Type 2 diabetes mellitus with hyperglycemia (HCC) Urge incontinence PAST SURGICAL HISTORY Procedure Laterality Date ANKLE SURGERY HX Left 2018 BACK SURGERY HX 2015 CHOLECYSTECTOMY 1998 HYSTERECTOMY HX 1999 INGUINAL HERNIA REPAIR HX Bilateral INTERSTIM,NEUROSTIM 3023 2015 KIDNEY STONE SURGERY HX 2020 PROCEDURE (SPECIFY) 2014 spinal fusion cervical TUBAL LIGATION HX 1979 Current Outpatient Medications Medication Sig Dispense Refill mupirocin (BACTROBAN) 2 % ointment buPROPion XL (WELLBUTRIN XL) 150 mg 24 hr tablet Take 150 mg by mouth once daily. acetaminophen (TYLENOL EX STR RAPID RELEASE ORAL) Take by mouth as needed. venlafaxine ER (EFFEXOR XR) 75 mg 24 hr capsule Take 75 mg by mouth once daily. Diaper,Brief, Adult,Disposable (DEPEND UNDERWEAR S-M) 1 Each four times daily. 360 Each 3 LANTUS SOLOSTAR U-100 INSULIN 100 unit/mL (3 mL) Inject 38 Units subcutaneously daily at bedtime. fenofibrate nanocrystallized (TRICOR) 48 mg tablet SPIRIVA WITH HANDIHALER 18 mcg inhalation capsule coenzyme Q10 (COENZYME Q-10) 100 mg cap capsule tiZANidine (ZANAFLEX) 4 mg tablet three times a day. FARXIGA 10 mg tablet atorvastatin (LIPITOR) 80 mg tablet daily at bedtime. ergocalciferol 50,000 unit capsule (VITAMIN D2, DRISDOL) pantoprazole DR (PROTONIX) 40 mg tablet clopidogrel bisulfate (PLAVIX ORAL) Take 75 mg by mouth once daily. metFORMIN (GLUCOPHAGE) 1,000 mg tablet Take 1 tablet by mouth twice daily with meals. 60 tablet 3 albuterol HFA (PROVENTIL HFA, VENTOLIN HFA) 90 mcg/actuation inhaler Inhale 2 Puffs as instructed three times a day. budesonide-formoterol (SYMBICORT) 160-4.5 mcg/actuation inhaler Inhale 2 Puffs as instructed twice daily. albuterol (PROVENTIL) 2.5 mg/3 mL nebulizer solution Inhale 2.5-5 mg as instructed as directed. fluticasone (FLONASE) 50 mcg/actuation nasal spray Use 1 [place] in each nostril once daily. POLYETHYLENE GLYCOL 3350 (MIRALAX ORAL) Take by mouth as needed. No current facility-administered medications for this visit. (R39.15) Urinary urgency (primary encounter diagnosis) (N39.46) Mixed incontinence (N20.0) Kidney stones (R31.1) Benign essential microscopic hematuria Plan CT stone protocol will see what her urine shows but organ to do a cystoscopy because she had pus and blood we will get a cath culture UA today Christina Butler MD This note was generated with voice recognition software and may contain errors, including spelling, grammar, syntax and misrecognition of what was dictated, that are not fully corrected. CNOV Observed: 12/20/2024 11:45 AM Status: COMPLETED Source: [facility] Office Visit (UROALL) DOMINIK MENDEZ ([id number]) 1960 F T Date Time Provider Department 12/20/24 11:45 AM CHRISTINA BUTLER During your visit today, we recorded the following information about you: Kate Poe LPN 12/20/2024 12:10 PM Signed Bladder Scan Patient presents today for a bladder scan. Scan performed without difficulty. Residual urine amount is 226ml. KAITLIN Rabago Bradford Thomas, MD 12/20/2024 12:10 PM Signed Dominik Cates Vanessa is a 64 year old female who presents with follow-up of her kidney stones. 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 Bus 226 Review of Systems- Reviewed and otherwise non-contributory. There were no vitals taken for this visit. PAST MEDICAL HISTORY Diagnosis Date BMI 29.0-29.9,adult CKD (chronic kidney disease) COPD (chronic obstructive pulmonary disease) (HCC) GERD (gastroesophageal reflux disease) HLD (hyperlipidemia) Hypertension Kidney stones Muscle cramps Neuropathy, peripheral Ovarian cancer (HCC) Overweight Post-operative nausea and vomiting Pulmonary embolism (HCC) Stroke (cerebrum) (HCC) Type 2 diabetes mellitus with hyperglycemia (HCC) Urge incontinence PAST SURGICAL HISTORY Procedure Laterality Date ANKLE SURGERY HX Left 2018 BACK SURGERY HX 2014 CHOLECYSTECTOMY 1998 HYSTERECTOMY HX 1999 INGUINAL HERNIA REPAIR HX Bilateral INTERSTIM,NEUROSTIM 3023 2015 KIDNEY STONE SURGERY HX 2020 PROCEDURE (SPECIFY) 2014 spinal fusion cervical TUBAL LIGATION HX 1979 Current Outpatient Medications Medication Sig Dispense Refill mupirocin (BACTROBAN) 2 % ointment buPROPion XL (WELLBUTRIN XL) 150 mg 24 hr tablet Take 150 mg by mouth once daily. acetaminophen (TYLENOL EX STR RAPID RELEASE ORAL) Take by mouth as needed. venlafaxine ER (EFFEXOR XR) 75 mg 24 hr capsule Take 75 mg by mouth once daily. Diaper,Brief, Adult,Disposable (DEPEND UNDERWEAR S-M) 1 Each four times daily. 360 Each 3 LANTUS SOLOSTAR U-100 INSULIN 100 unit/mL (3 mL) Inject 38 Units subcutaneously daily at bedtime. fenofibrate nanocrystallized (TRICOR) 48 mg tablet SPIRIVA WITH HANDIHALER 18 mcg inhalation capsule coenzyme Q10 (COENZYME Q-10) 100 mg cap capsule tiZANidine (ZANAFLEX) 4 mg tablet three times a day. FARXIGA 10 mg tablet atorvastatin (LIPITOR) 80 mg tablet daily at bedtime. ergocalciferol 50,000 unit capsule (VITAMIN D2, DRISDOL) pantoprazole DR (PROTONIX) 40 mg tablet clopidogrel bisulfate (PLAVIX ORAL) Take 75 mg by mouth once daily. metFORMIN (GLUCOPHAGE) 1,000 mg tablet Take 1 tablet by mouth twice daily with meals. 60 tablet 3 albuterol HFA (PROVENTIL HFA, VENTOLIN HFA) 90 mcg/actuation inhaler Inhale 2 Puffs as instructed three times a day. budesonide-formoterol (SYMBICORT) 160-4.5 mcg/actuation inhaler Inhale 2 Puffs as instructed twice daily. albuterol (PROVENTIL) 2.5 mg/3 mL nebulizer solution Inhale 2.5-5 mg as instructed as directed. fluticasone (FLONASE) 50 mcg/actuation nasal spray Use 1 [place] in each nostril once daily. POLYETHYLENE GLYCOL 3350 (MIRALAX ORAL) Take by mouth as needed. No current facility-administered medications for this visit. (R39.15) Urinary urgency (primary encounter diagnosis) (N39.46) Mixed incontinence (N20.0) Kidney stones (R31.1) Benign essential microscopic hematuria Plan CT stone protocol will see what her urine shows but organ to do a cystoscopy because she had pus and blood we will get a cath culture UA today Christina Butler MD This note was generated with voice recognition software and may contain errors, including spelling, grammar, syntax and misrecognition of what was dictated, that are not fully corrected. Kate Poe LPN 12/20/2024 2:46 PM Signed Addended by: KATE POE on: 12/20/2024 02:46 PM Modules accepted: Orders Christina Butler MD 12/20/2024 2:46 PM Signed Addended by: CHRISTINA BUTLER on: 12/20/2024 02:46 PM Modules accepted: Orders Allergies As of Date: 12/20/2024 Noted Allergy Reaction CODEINE 01/28/2016 16 - Unknown SULFA DRUGS (SULFA (SULFONAMIDE A*01/28/2016 16 - Unknown Date Reviewed: 12/20/2024 Reviewed by: Kate Poe LPN - Fully Assessed Reason for Visit: Urgency of urination [Other] recurrent UTI [Other] Kidney Stones [57297] Primary Visit Diagnosis:Urinary urgency [R39.15] Other Visit Diagnoses:Mixed incontinence [N39.46] Kidney stones [N20.0] Benign essential microscopic hematuria [R31.1] Order(s):BLADDER SCAN [[id number]] Order #: [id number] CT ABD/PEL WO IVCON [[id number]] Order #: [id number] FUTURE BACTERIAL CULTURE, URINE [SQURCUL] Order #: [id number]. #:[id number] Prescriptions as of 12/20/2024 - mupirocin (BACTROBAN) 2 % ointment - buPROPion XL (WELLBUTRIN XL) 150 mg 24 hr tablet Take 150 mg by mouth once daily. - acetaminophen (TYLENOL EX STR RAPID RELEASE ORAL) Take by mouth as needed. - venlafaxine ER (EFFEXOR XR) 75 mg 24 hr capsule Take 75 mg by mouth once daily. - Diaper,Brief, Adult,Disposable (DEPEND UNDERWEAR S-M) 1 Each four times daily. - LANTUS SOLOSTAR U-100 INSULIN 100 unit/mL (3 mL) Inject 38 Units subcutaneously daily at bedtime. - fenofibrate nanocrystallized (TRICOR) 48 mg tablet - SPIRIVA WITH HANDIHALER 18 mcg inhalation capsule - coenzyme Q10 (COENZYME Q-10) 100 mg cap capsule - tiZANidine (ZANAFLEX) 4 mg tablet three times a day. - FARXIGA 10 mg tablet - atorvastatin (LIPITOR) 80 mg tablet daily at bedtime. - ergocalciferol 50,000 unit capsule (VITAMIN D2, DRISDOL) - pantoprazole DR (PROTONIX) 40 mg tablet - clopidogrel bisulfate (PLAVIX ORAL) Take 75 mg by mouth once daily. - metFORMIN (GLUCOPHAGE) 1,000 mg tablet Take 1 tablet by mouth twice daily with meals. - albuterol HFA (PROVENTIL HFA, VENTOLIN HFA) 90 mcg/actuation inhaler Inhale 2 Puffs as instructed three times a day. - budesonide-formoterol (SYMBICORT) 160-4.5 mcg/actuation inhaler Inhale 2 Puffs as instructed twice daily. - albuterol (PROVENTIL) 2.5 mg/3 mL nebulizer solution Inhale 2.5-5 mg as instructed as directed. - fluticasone (FLONASE) 50 mcg/actuation nasal spray Use 1 [place] in each nostril once daily. - POLYETHYLENE GLYCOL 3350 (MIRALAX ORAL) Take by mouth as needed. Problem List As Of Date 12/20/2024 Noted Resolved Type 2 diabetes mellitus with hyperglycemia (HC* Hypertension [I10] Overweight [E66.3] Diabetic polyneuropathy associated with type 2 * Pre-op exam [Z01.818] 04/05/2024 Urge incontinence [N39.41] 04/05/2024 Cerebral infarction, unspecified (HCC) [I63.9] 06/19/2023 06/25/2024 Chronic kidney disease [N18.9] 03/04/2016 Chronic obstructive pulmonary disease (HCC) [J4*03/04/2016 Gastroesophageal reflux disease [K21.9] 06/22/2023 Hyperlipidemia [E78.5] 04/05/2024 Pulmonary embolism (HCC) [I26.99] 04/05/2024 Nicotine use [Z72.0] 04/05/2024 TERESITA (obstructive sleep apnea) [G47.33] 04/05/2024 Other chest pain [R07.89] 04/05/2024 CAD (coronary artery disease) [I25.10] 04/05/2024 Pulmonary HTN (HCC) [I27.20] 04/05/2024 PFO (patent foramen ovale) [Q21.12] 04/05/2024 Sacral nerve stimulator present [Z96.82] 05/23/2024 Disposition: Return for ct cysto culture. Follow-up and Disposition History for Encounter Date Provider Department Center 12/20/2024 [id number] BUTLER *[facility] Encounter Status:Closed by CHRISTINA BUTLER on 12/20/24 PROGRESS Observed: 12/20/2024 11:34 AM Status: COMPLETED Source: [facility] HNO ID: [id number] Author: KATE POE LPN Service: ? Author Type: LICENSED NURSE Type: Progress Notes Filed: 12/20/2024 12:10 Note Text: Bladder Scan Patient presents today for a bladder scan. Scan performed without difficulty. Residual urine amount is 226ml. Kate Poe LPN PROGRESS Observed: 11/03/2024 4:05 PM Status: COMPLETED Source: [facility] HNO ID: [id number] Author: LIDIA GONZALEZ CPhT Service: ? Author Type: Psychiatric Technician Assistant Type: Progress Notes Filed: 11/03/2024 16:07 Note Text: Patient is identified through a medication adherence outreach initiative based on pharmacy claims data from: [employer] Medication Adherence Category: Statins First Review Attribution Status: Correct Attribution Medication(s) Atorvastatin 80 mg due 10/31/24 Medication Status per portal/Epic Reconcile Dispense: Filled on time - On or before next fill date Date Filled (MM/DD): 10/28 Day Supply: 30 Medication Status per Profile Review: No issues per profile review Patient appropriate for outreach? No Reason patient not appropriate for outreach:Patient filled on time / no adherence concerns to be addressed Lidia Gonzalez CPhT Value Based Care Pharmacy Team CNPTOUTREACH Observed: 11/03/2024 12:00 AM Status: COMPLETED Source: [facility] Patient Outreach (PHPOHE) DOMINIK MENDEZ ([id number]) 1960 F [facility] Date Time Provider Department 11/03/24 [facility]FSON [facility] During your visit today, we recorded the following information about you: Lidia Gonzalez CPhT 11/03/2024 4:07 PM Signed Patient is identified through a medication adherence outreach initiative based on pharmacy claims data from: [facility] Medication Adherence Category: Statins First Review Attribution Status: Correct Attribution Medication(s) Atorvastatin 80 mg due 10/31/24 Medication Status per portal/Epic Reconcile Dispense: Filled on time - On or before next fill date Date Filled (MM/DD): 10/28 Day Supply: 30 Medication Status per Profile Review: No issues per profile review Patient appropriate for outreach? No Reason patient not appropriate for outreach:Patient filled on time / no adherence concerns to be addressed Lidia Gonzalez CPhT Value Based Care Pharmacy Team Allergies As of Date: 11/03/2024 Noted Allergy Reaction CODEINE 01/28/2016 16 - Unknown SULFA DRUGS (SULFA (SULFONAMIDE A*01/28/2016 16 - Unknown Date Reviewed: 08/18/2024 Reviewed by: Anu Luna OCCA - Fully Assessed Reason for Visit: Allied Health Visit [5] Cmt: Medication Adherence Outreach Prescriptions as of 11/03/2024 - mupirocin (BACTROBAN) 2 % ointment - buPROPion XL (WELLBUTRIN XL) 150 mg 24 hr tablet Take 150 mg by mouth once daily. - acetaminophen (TYLENOL EX STR RAPID RELEASE ORAL) Take by mouth as needed. - venlafaxine ER (EFFEXOR XR) 75 mg 24 hr capsule Take 75 mg by mouth once daily. - Diaper,Brief, Adult,Disposable (DEPEND UNDERWEAR S-M) 1 Each four times daily. - LANTUS SOLOSTAR U-100 INSULIN 100 unit/mL (3 mL) Inject 38 Units subcutaneously daily at bedtime. - fenofibrate nanocrystallized (TRICOR) 48 mg tablet - SPIRIVA WITH HANDIHALER 18 mcg inhalation capsule - coenzyme Q10 (COENZYME Q-10) 100 mg cap capsule - tiZANidine (ZANAFLEX) 4 mg tablet three times a day. - FARXIGA 10 mg tablet - atorvastatin (LIPITOR) 80 mg tablet daily at bedtime. - ergocalciferol 50,000 unit capsule (VITAMIN D2, DRISDOL) - pantoprazole DR (PROTONIX) 40 mg tablet - clopidogrel bisulfate (PLAVIX ORAL) Take 75 mg by mouth once daily. - metFORMIN (GLUCOPHAGE) 1,000 mg tablet Take 1 tablet by mouth twice daily with meals. - albuterol HFA (PROVENTIL HFA, VENTOLIN HFA) 90 mcg/actuation inhaler Inhale 2 Puffs as instructed three times a day. - budesonide-formoterol (SYMBICORT) 160-4.5 mcg/actuation inhaler Inhale 2 Puffs as instructed twice daily. - albuterol (PROVENTIL) 2.5 mg/3 mL nebulizer solution Inhale 2.5-5 mg as instructed as directed. - fluticasone (FLONASE) 50 mcg/actuation nasal spray Use 1 [place] in each nostril once daily. - POLYETHYLENE GLYCOL 3350 (MIRALAX ORAL) Take by mouth as needed. Problem List As Of Date 11/03/2024 Noted Resolved Type 2 diabetes mellitus with hyperglycemia (HC* Hypertension [I10] Overweight [E66.3] Diabetic polyneuropathy associated with type 2 * Pre-op exam [Z01.818] 04/05/2024 Urge incontinence [N39.41] 04/05/2024 Cerebral infarction, unspecified (HCC) [I63.9] 06/19/2023 06/25/2024 Chronic kidney disease [N18.9] 03/04/2016 Chronic obstructive pulmonary disease (HCC) [J4*03/04/2016 Gastroesophageal reflux disease [K21.9] 06/22/2023 Hyperlipidemia [E78.5] 04/05/2024 Pulmonary embolism (HCC) [I26.99] 04/05/2024 Nicotine use [Z72.0] 04/05/2024 TERESITA (obstructive sleep apnea) [G47.33] 04/05/2024 Other chest pain [R07.89] 04/05/2024 CAD (coronary artery disease) [I25.10] 04/05/2024 Pulmonary HTN (HCC) [I27.20] 04/05/2024 PFO (patent foramen ovale) [Q21.12] 04/05/2024 Sacral nerve stimulator present [Z96.82] 05/23/2024 Encounter Status:Closed by LIDIA GONZALEZ on 11/03/24 MARYN Observed: 08/21/2024 12:00 AM Status: COMPLETED Source: [facility] Telephone ([id number]) DOMINIK MENDEZ ([id number]) 1960 F T Date Time Provider Department 08/21/24 AIRAM PAULA [id number] During your visit today, we recorded the following information about you: Airam Paula, MANUFACTURER'S SERVICE REPRESENTATIVE.3D ANIMATOR 08/21/2024 9:25 AM Signed Urine cx contaminated. No antibiotics recommended at thist martha. Airam Paula APRN.Anu Raygoza OCCA 08/21/2024 9:40 AM Signed Called pt but was unable to leave due to pt's mailbox being full. ZION Cardoza Allergies As of Date: 08/21/2024 Noted Allergy Reaction CODEINE 01/28/2016 16 - Unknown SULFA DRUGS (SULFA (SULFONAMIDE A*01/28/2016 16 - Unknown Date Reviewed: 08/18/2024 Reviewed by: Anu Luna OCCA - Fully Assessed Reason for Visit: Results [95] Prescriptions as of 08/21/2024 - mupirocin (BACTROBAN) 2 % ointment - buPROPion XL (WELLBUTRIN XL) 150 mg 24 hr tablet Take 150 mg by mouth once daily. - acetaminophen (TYLENOL EX STR RAPID RELEASE ORAL) Take by mouth as needed. - venlafaxine ER (EFFEXOR XR) 75 mg 24 hr capsule Take 75 mg by mouth once daily. - Diaper,Brief, Adult,Disposable (DEPEND UNDERWEAR S-M) 1 Each four times daily. - LANTUS SOLOSTAR U-100 INSULIN 100 unit/mL (3 mL) Inject 38 Units subcutaneously daily at bedtime. - fenofibrate nanocrystallized (TRICOR) 48 mg tablet - SPIRIVA WITH HANDIHALER 18 mcg inhalation capsule - coenzyme Q10 (COENZYME Q-10) 100 mg cap capsule - tiZANidine (ZANAFLEX) 4 mg tablet three times a day. - FARXIGA 10 mg tablet - atorvastatin (LIPITOR) 80 mg tablet daily at bedtime. - ergocalciferol 50,000 unit capsule (VITAMIN D2, DRISDOL) - pantoprazole DR (PROTONIX) 40 mg tablet - clopidogrel bisulfate (PLAVIX ORAL) Take 75 mg by mouth once daily. - metFORMIN (GLUCOPHAGE) 1,000 mg tablet Take 1 tablet by mouth twice daily with meals. - albuterol HFA (PROVENTIL HFA, VENTOLIN HFA) 90 mcg/actuation inhaler Inhale 2 Puffs as instructed three times a day. - budesonide-formoterol (SYMBICORT) 160-4.5 mcg/actuation inhaler Inhale 2 Puffs as instructed twice daily. - albuterol (PROVENTIL) 2.5 mg/3 mL nebulizer solution Inhale 2.5-5 mg as instructed as directed. - fluticasone (FLONASE) 50 mcg/actuation nasal spray Use 1 [place] in each nostril once daily. - POLYETHYLENE GLYCOL 3350 (MIRALAX ORAL) Take by mouth as needed. Problem List As Of Date 08/21/2024 Noted Resolved Type 2 diabetes mellitus with hyperglycemia (HC* Hypertension [I10] Overweight [E66.3] Diabetic polyneuropathy associated with type 2 * Pre-op exam [Z01.818] 04/05/2024 Urge incontinence [N39.41] 04/05/2024 Cerebral infarction, unspecified (HCC) [I63.9] 06/19/2023 06/25/2024 Chronic kidney disease [N18.9] 03/04/2016 Chronic obstructive pulmonary disease (HCC) [J4*03/04/2016 Gastroesophageal reflux disease [K21.9] 06/22/2023 Hyperlipidemia [E78.5] 04/05/2024 Pulmonary embolism (HCC) [I26.99] 04/05/2024 Nicotine use [Z72.0] 04/05/2024 TERESITA (obstructive sleep apnea) [G47.33] 04/05/2024 Other chest pain [R07.89] 04/05/2024 CAD (coronary artery disease) [I25.10] 04/05/2024 Pulmonary HTN (HCC) [I27.20] 04/05/2024 PFO (patent foramen ovale) [Q21.12] 04/05/2024 Sacral nerve stimulator present [Z96.82] 05/23/2024 Encounter Status:Closed by AIRAM PAULA on 08/21/24 BACTERIA UR CULT Observed: 08/18/2024 3:28 PM Status: F Source: [facility] CULTURE, URINE: >=100,000 CFU/mL Three or more organisms, no one type predominant, suggesting contamination during collection. Recollect if clinically indicated. Performed By: #### [id number] ### # [facility] CLIA [id number] [address] [place] [address] [place] PROGRESS Observed: 08/18/2024 1:00 PM Status: COMPLETED Source: [facility] HNO ID: [id number] Author: AIRAM PAULA APRN.3D ANIMATOR Service: ? Author Type: Nurse Practitioner Type: Progress Notes Filed: 08/21/2024 09:27 Note Text: [facility] ESTABLISHED PATIENT FOLLOW-UP NOTE PATIENT: Dominik Mendez (64 year old) PCP: Julio Gustafson MD, Assessment AND Plan Sacral neurostimulator in situ Palpated SNM in right buttock IPG life is low. Did not bring remote, she states it was stolen. She is concerned she urinated it out. Showed a photo which demonstrated a sticker in the toilet. Discussed it is impossible to urinate out her Interstim as it is implanted in a pocket underneath the skin. She does have pain on palpation to the area. ' Obtain xray to check placement/leads and will then plan removal of stimulator. Has already no showed x 2 for this procedure. Orders: BLADDER SCAN URINE CULTURE XR SACRUM/COCCYX 3V AP/LAT; Future Urinary urgency Hx of. N change Orders: BLADDER SCAN URINE CULTURE Mixed incontinence Orders: BLADDER SCAN Incomplete bladder emptying Orders: BLADDER SCAN FOLLOW UP: No follow-ups on file. CHIEF COMPLAINT: No chief complaint on file. HISTORY OF PRESENT ILLNESS: Prior notes were reviewed. Patient known to Dr. Lunsford and Dr. Kramer. She has history of OAB, Mixed incontinence (UUI > RAKAN), MARY and hx of interstim. She underwent cystoscopy by Dr. Kramer and IPG life was low plan to removal IPG and lead without replacement planned due to poor compliance with follow-up and poor glucose control. Was to have surgery on 04/17/24 (no showed), 05/2024 (no showed) for removal. She has followed with dr. Lunsford for c/o kidney stones/gross hematuria and was to follow-up with CTU. CTU completed 01/05/24 with nonobstructing 4 mm right renal stone. No additional stone management was recommended at the time of follow-up in January of this year. Patient no c/o pain with urination and concern for part of her interstim coming out. REVIEW OF SYSTEMS GENERAL:denies unintentional weight loss, malaise or fevers. NEUROLOGIC: pt is alert and oriented GASTROINTESTINAL: No nausea, vomiting, or diarrhea GENITOURINARY: See HPI MUSCULOSKELETAL: Negative for joint pain or swelling, back pain or muscle pain SKIN: Negative for lesions, rash, and itching. ALLERGIES: ALLERGIES Allergen Reactions Codeine Unknown Sulfa Drugs [Sulfa * Unknown MEDICATIONS: mupirocin (BACTROBAN) 2 % ointment buPROPion XL (WELLBUTRIN XL) 150 mg 24 hr tablet Take 150 mg by mouth once daily. acetaminophen (TYLENOL EX STR RAPID RELEASE ORAL) Take by mouth as needed. venlafaxine ER (EFFEXOR XR) 75 mg 24 hr capsule Take 75 mg by mouth once daily. Diaper,Brief, Adult,Disposable (DEPEND UNDERWEAR S-M) 1 Each four times daily. LANTUS SOLOSTAR U-100 INSULIN 100 unit/mL (3 mL) Inject 38 Units subcutaneously daily at bedtime. fenofibrate nanocrystallized (TRICOR) 48 mg tablet SPIRIVA WITH HANDIHALER 18 mcg inhalation capsule coenzyme Q10 (COENZYME Q-10) 100 mg cap capsule tiZANidine (ZANAFLEX) 4 mg tablet three times a day. FARXIGA 10 mg tablet atorvastatin (LIPITOR) 80 mg tablet daily at bedtime. ergocalciferol 50,000 unit capsule (VITAMIN D2, DRISDOL) pantoprazole DR (PROTONIX) 40 mg tablet clopidogrel bisulfate (PLAVIX ORAL) Take 75 mg by mouth once daily. metFORMIN (GLUCOPHAGE) 1,000 mg tablet Take 1 tablet by mouth twice daily with meals. albuterol HFA (PROVENTIL HFA, VENTOLIN HFA) 90 mcg/actuation inhaler Inhale 2 Puffs as instructed three times a day. budesonide-formoterol (SYMBICORT) 160-4.5 mcg/actuation inhaler Inhale 2 Puffs as instructed twice daily. albuterol (PROVENTIL) 2.5 mg/3 mL nebulizer solution Inhale 2.5-5 mg as instructed as directed. fluticasone (FLONASE) 50 mcg/actuation nasal spray Use 1 [place] in each nostril once daily. POLYETHYLENE GLYCOL 3350 (MIRALAX ORAL) Take by mouth as needed. PAST HISTORY: PAST MEDICAL HISTORY Diagnosis Date BMI 29.0-29.9,adult CKD (chronic kidney disease) COPD (chronic obstructive pulmonary disease) (HCC) GERD (gastroesophageal reflux disease) HLD (hyperlipidemia) Hypertension Kidney stones Muscle cramps Neuropathy, peripheral Ovarian cancer (HCC) Overweight Post-operative nausea and vomiting Pulmonary embolism (HCC) Stroke (cerebrum) (HCC) Type 2 diabetes mellitus with hyperglycemia (HCC) Urge incontinence PAST SURGICAL HISTORY Procedure Laterality Date ANKLE SURGERY HX Left 2018 BACK SURGERY HX 2015 CHOLECYSTECTOMY 1999 HYSTERECTOMY HX 2000 INGUINAL HERNIA REPAIR HX Bilateral INTERSTIM,NEUROSTIM 3023 2016 KIDNEY STONE SURGERY HX 2020 PROCEDURE (SPECIFY) 2015 spinal fusion cervical TUBAL LIGATION HX 1979 FAMILY HISTORY Problem Relation Age of Onset Ischemic Heart Disease Father [place] age 83 Social History Tobacco Use Smoking status: Every Day Current packs/day: 0.33 Average packs/day: 0.3 packs/day for 40.0 years (13.2 ttl pk-yrs) Types: Cigarettes Passive exposure: Never Smokeless tobacco: Never Vaping Use Vaping status: Never Used Substance Use Topics Alcohol use: No Drug use: No PHYSICAL EXAMINATION: There were no vitals taken for this visit. Constitutional: In no acute distress. Well appearing. Respiratory: Normal respiratory effort without use of accessory muscles. Musculoskeletal: No LE edema or tenderness; Normal gait and station Cardiovascular: Regular rate Gastrointestinal: Soft, non-distended, non-tender, denies CVA tenderness DATA: CT - CT UROGRAM WO/W IVCON Result Date: 01/07/2024 IMPRESSION: Nonobstructing peripelvic right renal calculus is stable. Stable peripheral subcapsular left renal cyst with mild urothelial thickening of the renal pelvis and tiny peripheral hyperdensities, probable calcifications or postsurgical change. Yard Worker: MACARIO Transcribe Date/Time: Jan 07 2024 3:18P Dictated by : KATIE ALONSO MD This examination was interpreted and the report reviewed and electronically signed by: KATIE ALONSO MD on Jan 07 2024 3:40PM EST Clinic: GLUCOSE UA (POCT) (mg/dL) Date Value 02/18/2024 >=1000 (A) BILIRUBIN UA (POCT) (no units) Date Value 02/18/2024 Negative KETONE UA (POCT) (mg/dL) Date Value 02/18/2024 Negative SPECIFIC GRAVITY UA (POCT) (no units) Date Value 02/18/2024 1.015 HEMOGLOBIN/BLOOD UA (POCT) (no units) Date Value 02/18/2024 Trace-lysed (A) PH UA (POCT) (no units) Date Value 02/18/2024 6.0 PROTEIN UA (POCT) (mg/dL) Date Value 02/18/2024 Negative UROBILINOGEN UA (POCT) (E.U./dL) Date Value 02/18/2024 0.2 NITRITE UA (POCT) (no units) Date Value 02/18/2024 Negative LEUKOCYTES UA (POCT) (no units) Date Value 02/18/2024 Small (A) COLOR UA (POCT) (no units) Date Value 02/18/2024 Yellow CLARITY UA (POCT) (no units) Date Value 02/18/2024 Clear Laboratory: Creatinine Date Value Ref Range Status 01/05/2024 0.86 0.58 - 0.96 mg/dL Final I have reviewed the problem list, family history, and social history documented by my ancillary staff. Airam Paula APRN.3D ANIMATOR CNOV Observed: 08/18/2024 1:00 PM Status: COMPLETED Source: [facility] Office Visit ([id number]) DOMINIK MENDEZ ([id number]) 1960 F CHT Date Time Provider Department 08/18/24 1:00 PM JULIA PAULANereyda Cates [id number] During your visit today, we recorded the following information about you: Pulse Blood pressure 93/minute 136/74 Airam Paula, MANUFACTURER'S SERVICE REPRESENTATIVE.3D ANIMATOR 08/21/2024 9:27 AM Signed [facility] ESTABLISHED PATIENT FOLLOW-UP NOTE PATIENT: Domiink Mendez (64 year old) PCP: Julio Gustafson MD, Assessment AND Plan Sacral neurostimulator in situ Palpated SNM in right buttock IPG life is low. Did not bring remote, she states it was stolen. She is concerned she urinated it out. Showed a photo which demonstrated a sticker in the toilet. Discussed it is impossible to urinate out her Interstim as it is implanted in a pocket underneath the skin. She does have pain on palpation to the area. ' Obtain xray to check placement/leads and will then plan removal of stimulator. Has already no showed x 2 for this procedure. Orders: BLADDER SCAN URINE CULTURE XR SACRUM/COCCYX 3V AP/LAT; Future Urinary urgency Hx of. N change Orders: BLADDER SCAN URINE CULTURE Mixed incontinence Orders: BLADDER SCAN Incomplete bladder emptying Orders: BLADDER SCAN FOLLOW UP: No follow-ups on file. CHIEF COMPLAINT: No chief complaint on file. HISTORY OF PRESENT ILLNESS: Prior notes were reviewed. Patient known to Dr. Lunsford and Dr. Kramer. She has history of OAB, Mixed incontinence (UUI > RAKAN), MARY and hx of interstim. She underwent cystoscopy by Dr. Kramer and IPG life was low plan to removal IPG and lead without replacement planned due to poor compliance with follow-up and poor glucose control. Was to have surgery on 04/17/24 (no showed), 05/2024 (no showed) for removal. She has followed with dr. Lunsford for c/o kidney stones/gross hematuria and was to follow-up with CTU. CTU completed 01/05/24 with nonobstructing 4 mm right renal stone. No additional stone management was recommended at the time of follow-up in January of this year. Patient no c/o pain with urination and concern for part of her interstim coming out. REVIEW OF SYSTEMS GENERAL:denies unintentional weight loss, malaise or fevers. NEUROLOGIC: pt is alert and oriented GASTROINTESTINAL: No nausea, vomiting, or diarrhea GENITOURINARY: See HPI MUSCULOSKELETAL: Negative for joint pain or swelling, back pain or muscle pain SKIN: Negative for lesions, rash, and itching. ALLERGIES: ALLERGIES Allergen Reactions Codeine Unknown Sulfa Drugs [Sulfa * Unknown MEDICATIONS: mupirocin (BACTROBAN) 2 % ointment buPROPion XL (WELLBUTRIN XL) 150 mg 24 hr tablet Take 150 mg by mouth once daily. acetaminophen (TYLENOL EX STR RAPID RELEASE ORAL) Take by mouth as needed. venlafaxine ER (EFFEXOR XR) 75 mg 24 hr capsule Take 75 mg by mouth once daily. Diaper,Brief, Adult,Disposable (DEPEND UNDERWEAR S-M) 1 Each four times daily. LANTUS SOLOSTAR U-100 INSULIN 100 unit/mL (3 mL) Inject 38 Units subcutaneously daily at bedtime. fenofibrate nanocrystallized (TRICOR) 48 mg tablet SPIRIVA WITH HANDIHALER 18 mcg inhalation capsule coenzyme Q10 (COENZYME Q-10) 100 mg cap capsule tiZANidine (ZANAFLEX) 4 mg tablet three times a day. FARXIGA 10 mg tablet atorvastatin (LIPITOR) 80 mg tablet daily at bedtime. ergocalciferol 50,000 unit capsule (VITAMIN D2, DRISDOL) pantoprazole DR (PROTONIX) 40 mg tablet clopidogrel bisulfate (PLAVIX ORAL) Take 75 mg by mouth once daily. metFORMIN (GLUCOPHAGE) 1,000 mg tablet Take 1 tablet by mouth twice daily with meals. albuterol HFA (PROVENTIL HFA, VENTOLIN HFA) 90 mcg/actuation inhaler Inhale 2 Puffs as instructed three times a day. budesonide-formoterol (SYMBICORT) 160-4.5 mcg/actuation inhaler Inhale 2 Puffs as instructed twice daily. albuterol (PROVENTIL) 2.5 mg/3 mL nebulizer solution Inhale 2.5-5 mg as instructed as directed. fluticasone (FLONASE) 50 mcg/actuation nasal spray Use 1 [place] in each nostril once daily. POLYETHYLENE GLYCOL 3350 (MIRALAX ORAL) Take by mouth as needed. PAST HISTORY: PAST MEDICAL HISTORY Diagnosis Date BMI 29.0-29.9,adult CKD (chronic kidney disease) COPD (chronic obstructive pulmonary disease) (HCC) GERD (gastroesophageal reflux disease) HLD (hyperlipidemia) Hypertension Kidney stones Muscle cramps Neuropathy, peripheral Ovarian cancer (HCC) Overweight Post-operative nausea and vomiting Pulmonary embolism (HCC) Stroke (cerebrum) (HCC) Type 2 diabetes mellitus with hyperglycemia (HCC) Urge incontinence PAST SURGICAL HISTORY Procedure Laterality Date ANKLE SURGERY HX Left 2018 BACK SURGERY HX 2015 CHOLECYSTECTOMY 1998 HYSTERECTOMY HX 1999 INGUINAL HERNIA REPAIR HX Bilateral INTERSTIM,NEUROSTIM 3023 2015 KIDNEY STONE SURGERY HX 2020 PROCEDURE (SPECIFY) 2015 spinal fusion cervical TUBAL LIGATION HX 1979 FAMILY HISTORY Problem Relation Age of Onset Ischemic Heart Disease Father [place] age 83 Social History Tobacco Use Smoking status: Every Day Current packs/day: 0.33 Average packs/day: 0.3 packs/day for 40.0 years (13.2 ttl pk-yrs) Types: Cigarettes Passive exposure: Never Smokeless tobacco: Never Vaping Use Vaping status: Never Used Substance Use Topics Alcohol use: No Drug use: No PHYSICAL EXAMINATION: There were no vitals taken for this visit. Constitutional: In no acute distress. Well appearing. Respiratory: Normal respiratory effort without use of accessory muscles. Musculoskeletal: No LE edema or tenderness; Normal gait and station Cardiovascular: Regular rate Gastrointestinal: Soft, non-distended, non-tender, denies CVA tenderness DATA: CT - CT UROGRAM WO/W IVCON Result Date: 01/07/2024 IMPRESSION: Nonobstructing peripelvic right renal calculus is stable. Stable peripheral subcapsular left renal cyst with mild urothelial thickening of the renal pelvis and tiny peripheral hyperdensities, probable calcifications or postsurgical change. Yard Worker: MACARIO Transcribe Date/Time: Jan 07 2024 3:18P Dictated by : KATIE ALONSO MD This examination was interpreted and the report reviewed and electronically signed by: KATIE ALONSO MD on Jan 07 2024 3:40PM EST Clinic: GLUCOSE UA (POCT) (mg/dL) Date Value 02/18/2024 >=1000 (A) BILIRUBIN UA (POCT) (no units) Date Value 02/18/2024 Negative KETONE UA (POCT) (mg/dL) Date Value 02/18/2024 Negative SPECIFIC GRAVITY UA (POCT) (no units) Date Value 02/18/2024 1.015 HEMOGLOBIN/BLOOD UA (POCT) (no units) Date Value 02/18/2024 Trace-lysed (A) PH UA (POCT) (no units) Date Value 02/18/2024 6.0 PROTEIN UA (POCT) (mg/dL) Date Value 02/18/2024 Negative UROBILINOGEN UA (POCT) (E.U./dL) Date Value 02/18/2024 0.2 NITRITE UA (POCT) (no units) Date Value 02/18/2024 Negative LEUKOCYTES UA (POCT) (no units) Date Value 02/18/2024 Small (A) COLOR UA (POCT) (no units) Date Value 02/18/2024 Yellow CLARITY UA (POCT) (no units) Date Value 02/18/2024 Clear Laboratory: Creatinine Date Value Ref Range Status 01/05/2024 0.86 0.58 - 0.96 mg/dL Final I have reviewed the problem list, family history, and social history documented by my ancillary staff. Airam Paula APRN.3D ANIMATOR Allergies As of Date: 08/18/2024 Noted Allergy Reaction CODEINE 01/28/2016 16 - Unknown SULFA DRUGS (SULFA (SULFONAMIDE A*01/28/2016 16 - Unknown Date Reviewed: 08/18/2024 Reviewed by: Anu Luna OCCA - Fully Assessed Reason for Visit: Gross hematuria [Other] interstim issues [Other] Primary Visit Diagnosis:Sacral neurostimulator in situ [Z96.82] Other Visit Diagnoses:Urinary urgency [R39.15] Mixed incontinence [N39.46] Incomplete bladder emptying [R33.9] Order(s):BLADDER SCAN [[id number]] Order #: [id number] UA DIP, URINE (POC) [[id number]] Order #: [id number]. #:[id number] URINE CULTURE [SQURCUL] Order #: [id number]. #:[id number] XR SACRUM/COCCYX 3V AP/LAT [[id number]] Order #: [id number] FUTURE Prescriptions as of 08/21/2024 - mupirocin (BACTROBAN) 2 % ointment - buPROPion XL (WELLBUTRIN XL) 150 mg 24 hr tablet Take 150 mg by mouth once daily. - acetaminophen (TYLENOL EX STR RAPID RELEASE ORAL) Take by mouth as needed. - venlafaxine ER (EFFEXOR XR) 75 mg 24 hr capsule Take 75 mg by mouth once daily. - Diaper,Brief, Adult,Disposable (DEPEND UNDERWEAR S-M) 1 Each four times daily. - LANTUS SOLOSTAR U-100 INSULIN 100 unit/mL (3 mL) Inject 38 Units subcutaneously daily at bedtime. - fenofibrate nanocrystallized (TRICOR) 48 mg tablet - SPIRIVA WITH HANDIHALER 18 mcg inhalation capsule - coenzyme Q10 (COENZYME Q-10) 100 mg cap capsule - tiZANidine (ZANAFLEX) 4 mg tablet three times a day. - FARXIGA 10 mg tablet - atorvastatin (LIPITOR) 80 mg tablet daily at bedtime. - ergocalciferol 50,000 unit capsule (VITAMIN D2, DRISDOL) - pantoprazole DR (PROTONIX) 40 mg tablet - clopidogrel bisulfate (PLAVIX ORAL) Take 75 mg by mouth once daily. - metFORMIN (GLUCOPHAGE) 1,000 mg tablet Take 1 tablet by mouth twice daily with meals. - albuterol HFA (PROVENTIL HFA, VENTOLIN HFA) 90 mcg/actuation inhaler Inhale 2 Puffs as instructed three times a day. - budesonide-formoterol (SYMBICORT) 160-4.5 mcg/actuation inhaler Inhale 2 Puffs as instructed twice daily. - albuterol (PROVENTIL) 2.5 mg/3 mL nebulizer solution Inhale 2.5-5 mg as instructed as directed. - fluticasone (FLONASE) 50 mcg/actuation nasal spray Use 1 [place] in each nostril once daily. - POLYETHYLENE GLYCOL 3350 (MIRALAX ORAL) Take by mouth as needed. Problem List As Of Date 08/18/2024 Noted Resolved Type 2 diabetes mellitus with hyperglycemia (HC* Hypertension [I10] Overweight [E66.3] Diabetic polyneuropathy associated with type 2 * Pre-op exam [Z01.818] 04/05/2024 Urge incontinence [N39.41] 04/05/2024 Cerebral infarction, unspecified (HCC) [I63.9] 06/19/2023 06/25/2024 Chronic kidney disease [N18.9] 03/04/2016 Chronic obstructive pulmonary disease (HCC) [J4*03/04/2016 Gastroesophageal reflux disease [K21.9] 06/22/2023 Hyperlipidemia [E78.5] 04/05/2024 Pulmonary embolism (HCC) [I26.99] 04/05/2024 Nicotine use [Z72.0] 04/05/2024 TERESITA (obstructive sleep apnea) [G47.33] 04/05/2024 Other chest pain [R07.89] 04/05/2024 CAD (coronary artery disease) [I25.10] 04/05/2024 Pulmonary HTN (HCC) [I27.20] 04/05/2024 PFO (patent foramen ovale) [Q21.12] 04/05/2024 Sacral nerve stimulator present [Z96.82] 05/23/2024 Level of Service: OFFICE/OUTPATIENT ESTABLISHED MOD [facility] 30 MIN [97025] Additional E/M codes: VISIT ABHAY BHATTIOC WITH MED * Encounter Status:Closed by AIRAM PAULA on 08/21/24 MARYN Observed: 08/04/2024 12:00 AM Status: COMPLETED Source: [facility] Telephone (URCANT) DOMINIK MENDEZ ([id number]) 1960 F CHT Date Time Provider Department 08/04/24 JAY UMANZOR URCANT During your visit today, we recorded the following information about you: Jalyn Starks RN 08/04/2024 10:39 AM Signed Patient needs to reschedule her 08/08 appointment with Airam due to transportation issues. Thanks, SUELLEN Grace Stephanie 08/04/2024 3:03 PM Signed Patient rescheduled by Remedios Marr to 08/17/24 at 2:20pm. Allergies As of Date: 08/04/2024 Noted Allergy Reaction CODEINE 01/28/2016 16 - Unknown SULFA DRUGS (SULFA (SULFONAMIDE A*01/28/2016 16 - Unknown Date Reviewed: 05/24/2024 Reviewed by: Denisha Alonzo, SUELLEN - Fully Assessed Reason for Visit: Appointment [186] Prescriptions as of 08/04/2024 - mupirocin (BACTROBAN) 2 % ointment - buPROPion XL (WELLBUTRIN XL) 150 mg 24 hr tablet Take 150 mg by mouth once daily. - acetaminophen (TYLENOL EX STR RAPID RELEASE ORAL) Take by mouth as needed. - venlafaxine ER (EFFEXOR XR) 75 mg 24 hr capsule Take 75 mg by mouth once daily. - Diaper,Brief, Adult,Disposable (DEPEND UNDERWEAR S-M) 1 Each four times daily. - LANTUS SOLOSTAR U-100 INSULIN 100 unit/mL (3 mL) Inject 38 Units subcutaneously daily at bedtime. - fenofibrate nanocrystallized (TRICOR) 48 mg tablet - SPIRIVA WITH HANDIHALER 18 mcg inhalation capsule - coenzyme Q10 (COENZYME Q-10) 100 mg cap capsule - tiZANidine (ZANAFLEX) 4 mg tablet three times a day. - FARXIGA 10 mg tablet - atorvastatin (LIPITOR) 80 mg tablet daily at bedtime. - ergocalciferol 50,000 unit capsule (VITAMIN D2, DRISDOL) - pantoprazole DR (PROTONIX) 40 mg tablet - clopidogrel bisulfate (PLAVIX ORAL) Take 75 mg by mouth once daily. - metFORMIN (GLUCOPHAGE) 1,000 mg tablet Take 1 tablet by mouth twice daily with meals. - albuterol HFA (PROVENTIL HFA, VENTOLIN HFA) 90 mcg/actuation inhaler Inhale 2 Puffs as instructed three times a day. - budesonide-formoterol (SYMBICORT) 160-4.5 mcg/actuation inhaler Inhale 2 Puffs as instructed twice daily. - albuterol (PROVENTIL) 2.5 mg/3 mL nebulizer solution Inhale 2.5-5 mg as instructed as directed. - fluticasone (FLONASE) 50 mcg/actuation nasal spray Use 1 [place] in each nostril once daily. - POLYETHYLENE GLYCOL 3350 (MIRALAX ORAL) Take by mouth as needed. Problem List As Of Date 08/04/2024 Noted Resolved Type 2 diabetes mellitus with hyperglycemia (HC* Hypertension [I10] Overweight [E66.3] Diabetic polyneuropathy associated with type 2 * Pre-op exam [Z01.818] 04/05/2024 Urge incontinence [N39.41] 04/05/2024 Cerebral infarction, unspecified (HCC) [I63.9] 06/19/2023 06/25/2024 Chronic kidney disease [N18.9] 03/04/2016 Chronic obstructive pulmonary disease (HCC) [J4*03/04/2016 Gastroesophageal reflux disease [K21.9] 06/22/2023 Hyperlipidemia [E78.5] 04/05/2024 Pulmonary embolism (HCC) [I26.99] 04/05/2024 Nicotine use [Z72.0] 04/05/2024 TERESITA (obstructive sleep apnea) [G47.33] 04/05/2024 Other chest pain [R07.89] 04/05/2024 CAD (coronary artery disease) [I25.10] 04/05/2024 Pulmonary HTN (HCC) [I27.20] 04/05/2024 PFO (patent foramen ovale) [Q21.12] 04/05/2024 Sacral nerve stimulator present [Z96.82] 05/23/2024 Encounter Status:Closed by JALYN STARKS on 08/04/24 ADE Observed: 07/26/2024 12:00 AM Status: COMPLETED Source: [facility] Telephone (UROLAE) DOMINIK MENDEZ ([id number]) 1960 F T Date Time Provider Department 07/26/24 VIKTORIA KRAMER During your visit today, we recorded the following information about you: Iris Boo RN 07/26/2024 1:41 PM Signed Patient called because something came out during urination and it was bloody a few days ago. She thought it was part of her intrastim. I told her that no part of her intrastim is in her bladder. She states that she has a picture of it. She needs to set up her mychart to send a picture. I told her that there is nothing we can do without seeing it and she did not save. She is not having any issues with urine being bloody at this time. She will set up and send it. Iris Boo RN Allergies As of Date: 07/26/2024 Noted Allergy Reaction CODEINE 01/28/2016 16 - Unknown SULFA DRUGS (SULFA (SULFONAMIDE A*01/28/2016 16 - Unknown Date Reviewed: 05/24/2024 Reviewed by: Denisha Alonzo RN - Fully Assessed Prescriptions as of 07/26/2024 - mupirocin (BACTROBAN) 2 % ointment - buPROPion XL (WELLBUTRIN XL) 150 mg 24 hr tablet Take 150 mg by mouth once daily. - acetaminophen (TYLENOL EX STR RAPID RELEASE ORAL) Take by mouth as needed. - venlafaxine ER (EFFEXOR XR) 75 mg 24 hr capsule Take 75 mg by mouth once daily. - Diaper,Brief, Adult,Disposable (DEPEND UNDERWEAR S-M) 1 Each four times daily. - LANTUS SOLOSTAR U-100 INSULIN 100 unit/mL (3 mL) Inject 38 Units subcutaneously daily at bedtime. - fenofibrate nanocrystallized (TRICOR) 48 mg tablet - SPIRIVA WITH HANDIHALER 18 mcg inhalation capsule - coenzyme Q10 (COENZYME Q-10) 100 mg cap capsule - tiZANidine (ZANAFLEX) 4 mg tablet three times a day. - FARXIGA 10 mg tablet - atorvastatin (LIPITOR) 80 mg tablet daily at bedtime. - ergocalciferol 50,000 unit capsule (VITAMIN D2, DRISDOL) - pantoprazole DR (PROTONIX) 40 mg tablet - clopidogrel bisulfate (PLAVIX ORAL) Take 75 mg by mouth once daily. - metFORMIN (GLUCOPHAGE) 1,000 mg tablet Take 1 tablet by mouth twice daily with meals. - albuterol HFA (PROVENTIL HFA, VENTOLIN HFA) 90 mcg/actuation inhaler Inhale 2 Puffs as instructed three times a day. - budesonide-formoterol (SYMBICORT) 160-4.5 mcg/actuation inhaler Inhale 2 Puffs as instructed twice daily. - albuterol (PROVENTIL) 2.5 mg/3 mL nebulizer solution Inhale 2.5-5 mg as instructed as directed. - fluticasone (FLONASE) 50 mcg/actuation nasal spray Use 1 [place] in each nostril once daily. - POLYETHYLENE GLYCOL 3350 (MIRALAX ORAL) Take by mouth as needed. Problem List As Of Date 07/26/2024 Noted Resolved Type 2 diabetes mellitus with hyperglycemia (HC* Hypertension [I10] Overweight [E66.3] Diabetic polyneuropathy associated with type 2 * Pre-op exam [Z01.818] 04/05/2024 Urge incontinence [N39.41] 04/05/2024 Cerebral infarction, unspecified (HCC) [I63.9] 06/19/2023 06/25/2024 Chronic kidney disease [N18.9] 03/04/2016 Chronic obstructive pulmonary disease (HCC) [J4*03/04/2016 Gastroesophageal reflux disease [K21.9] 06/22/2023 Hyperlipidemia [E78.5] 04/05/2024 Pulmonary embolism (HCC) [I26.99] 04/05/2024 Nicotine use [Z72.0] 04/05/2024 TERESITA (obstructive sleep apnea) [G47.33] 04/05/2024 Other chest pain [R07.89] 04/05/2024 CAD (coronary artery disease) [I25.10] 04/05/2024 Pulmonary HTN (HCC) [I27.20] 04/05/2024 PFO (patent foramen ovale) [Q21.12] 04/05/2024 Sacral nerve stimulator present [Z96.82] 05/23/2024 Encounter Status:Closed by IRIS BOO on 07/26/24 ADE Observed: 06/26/2024 12:00 AM Status: COMPLETED Source: [facility] Telephone (URCANT) DOMINIK MENDEZ ([id number]) 1960 F CHT Date Time Provider Department 06/26/24 KELLY ROJAS During your visit today, we recorded the following information about you: Tanya Lane 06/26/2024 3:15 PM Signed Pt called to cancel 06/[address] Allergies As of Date: 06/26/2024 Noted Allergy Reaction CODEINE 01/28/2016 16 - Unknown SULFA DRUGS (SULFA (SULFONAMIDE A*01/28/2016 16 - Unknown Date Reviewed: 05/24/2024 Reviewed by: Denisha Alonzo RN - Fully Assessed Reason for Visit: Appointment [186] Prescriptions as of 06/26/2024 - mupirocin (BACTROBAN) 2 % ointment - buPROPion XL (WELLBUTRIN XL) 150 mg 24 hr tablet Take 150 mg by mouth once daily. - acetaminophen (TYLENOL EX STR RAPID RELEASE ORAL) Take by mouth as needed. - venlafaxine ER (EFFEXOR XR) 75 mg 24 hr capsule Take 75 mg by mouth once daily. - Diaper,Brief, Adult,Disposable (DEPEND UNDERWEAR S-M) 1 Each four times daily. - LANTUS SOLOSTAR U-100 INSULIN 100 unit/mL (3 mL) Inject 38 Units subcutaneously daily at bedtime. - fenofibrate nanocrystallized (TRICOR) 48 mg tablet - SPIRIVA WITH HANDIHALER 18 mcg inhalation capsule - coenzyme Q10 (COENZYME Q-10) 100 mg cap capsule - tiZANidine (ZANAFLEX) 4 mg tablet three times a day. - FARXIGA 10 mg tablet - atorvastatin (LIPITOR) 80 mg tablet daily at bedtime. - ergocalciferol 50,000 unit capsule (VITAMIN D2, DRISDOL) - pantoprazole DR (PROTONIX) 40 mg tablet - clopidogrel bisulfate (PLAVIX ORAL) Take 75 mg by mouth once daily. - metFORMIN (GLUCOPHAGE) 1,000 mg tablet Take 1 tablet by mouth twice daily with meals. - albuterol HFA (PROVENTIL HFA, VENTOLIN HFA) 90 mcg/actuation inhaler Inhale 2 Puffs as instructed three times a day. - budesonide-formoterol (SYMBICORT) 160-4.5 mcg/actuation inhaler Inhale 2 Puffs as instructed twice daily. - albuterol (PROVENTIL) 2.5 mg/3 mL nebulizer solution Inhale 2.5-5 mg as instructed as directed. - fluticasone (FLONASE) 50 mcg/actuation nasal spray Use 1 [place] in each nostril once daily. - POLYETHYLENE GLYCOL 3350 (MIRALAX ORAL) Take by mouth as needed. Problem List As Of Date 06/26/2024 Noted Resolved Type 2 diabetes mellitus with hyperglycemia (HC* Hypertension [I10] Overweight [E66.3] Diabetic polyneuropathy associated with type 2 * Pre-op exam [Z01.818] 04/05/2024 Urge incontinence [N39.41] 04/05/2024 Cerebral infarction, unspecified (HCC) [I63.9] 06/19/2023 06/25/2024 Chronic kidney disease [N18.9] 03/04/2016 Chronic obstructive pulmonary disease (HCC) [J4*03/04/2016 Gastroesophageal reflux disease [K21.9] 06/22/2023 Hyperlipidemia [E78.5] 04/05/2024 Pulmonary embolism (HCC) [I26.99] 04/05/2024 Nicotine use [Z72.0] 04/05/2024 TERESITA (obstructive sleep apnea) [G47.33] 04/05/2024 Other chest pain [R07.89] 04/05/2024 CAD (coronary artery disease) [I25.10] 04/05/2024 Pulmonary HTN (HCC) [I27.20] 04/05/2024 PFO (patent foramen ovale) [Q21.12] 04/05/2024 Sacral nerve stimulator present [Z96.82] 05/23/2024 Encounter Status:Closed by TANYA LANE on 06/26/24 NURSING PROG Observed: 05/25/2024 9:41 AM Status: COMPLETED Source: [facility] HNO ID: [id number] Author: JEWEL KNAPP APRN.CNP Service: Anesthesiology Author Type: Nurse Practitioner Type: Nursing Progress Note Filed: 05/25/2024 09:42 Note Text: Summary: PAT No show to PAT. Spoke to Wanda from surgery scheduling -PAT scheduled 05/25/2024 NURSING PROG Observed: 05/22/2024 6:59 AM Status: COMPLETED Source: [facility] HNO ID: [id number] Author: LAUREL BRITO APRN.3D ANIMATOR Service: General Surgery Author Type: Nurse Practitioner Type: Nursing Progress Note Filed: 05/22/2024 07:00 Note Text: No Show 05/19/24 for PAT ALLERGIES DATE TYPE / CODE NAME / CODE REACTION SEVERITY SOURCE 01/28/2016 DRUG INGREDI/73145500 3(SNOMED CT) CODEINE UNKNOWN [facility] 01/28/2016 Drug Class/477684996( SNOMED CT) SULFA (SULFONAMIDE ANTIBIOTICS) UNKNOWN [facility] ENCOUNTERS ADMIT/DISCHARGE ACCOUNT NUMBER ADMITTING ENCOUNTER CLASS LOC ATION SOURCE 01/31/2025/ 5 [id number] Ambulatory [id number] lding:[facility]03[facility]20[id number] [id number] Ambulatory [id number] lding:[facility] 08/18/2024/ 4 [id number] Ambulatory [id number] lding:[id number] [facility] PAYERS ENCOUNTER GUARANTOR PAYER SUBSCRIBER SOURCE 01/31/2025 Primary Insurance:HUMANA GOLD PLUSPolicy Number: [id number] Date:8942-19-91Jhnv Name:Karan SYEJRRY: [id number] [place] [id number] [facility] 01/03/2025 Primary Insurance:HUMANA GOLD PLUSPolicy Number: [id number] Date:4711-29-80Jwmo Name:Karan SYJERRY: [id number] [place], [place] [id number] [place] [address] 01/03/2025 Primary Insurance:HUMANA GOLD PLUSPolicy Number: [id number] Date:5529-63-14Lpex Name:Karan SYOB: [id number] [place] [id number] [place] [address] 12/20/2024 Primary Insurance:HUMANA GOLD PLUSPolicy Number: [id number] Date:3251-10-57Kljr Name:Karan SYOB: [id number] [place], [place] [id number] [place] [address] 08/18/2024 Primary Insurance:HUMANA GOLD PLUSPolicy Number: [id number] Date:1460-01-20Mbsk Name:Karan SYOB: [id number] [place] [id number] [facility]
--- NOTE | 2025-05-16 14:54 | PAT.ANE_ITS ---
Pre-Assessment Diagnosis/Proposed Procedure Planned Operative Procedure(s): COLONOSCOPY Anesthesia History Anesthesia History - bonding machine tender: Anesthesia History - bonding machine tender Hx Hospitalization No 05/16/25 12:20 Any Problems With Anesthesia No 05/16/25 12:20 Cholinesterase deficiency No 05/16/25 12:20 You/Your Family Experience No 05/16/25 12:20 fever (hyperthermia) with Relationship Recent Exposure to Contagious Disease Does patient have nerve Yes: BLADDER STIMULATOR- 05/16/25 12:20 stimulator BRING CONTROL DOS Patient instructed to have device shut off --Does patient have Pacemaker or ICD? When Was Last Pacemaker Check QUESTION #4 FULL TEXT: You/Your Family Experience fever (hyperthermia) with Anesthesia Last Oral Intake Last Oral intake: Last Oral Intake NPO since Meds taken in AM with sips of water? Meds patient instructed to take am of surgery PONV PONV - bonding machine tender: PONV - bonding machine tender Female Yes 05/16/25 12:20 HX of Motion Sickness No 05/16/25 12:20 HX of N/V After Surgery No 05/16/25 12:20 Non-Smoker No 05/16/25 12:20 Duration of Surgery greater No 05/16/25 12:20 than 60 minutes Number of Risk Factors 1 05/16/25 12:20 PONV Score Low Risk 05/16/25 12:20 Height & Weight Height & Weight: Anesthesia: Height & Weight Height 4 ft 11 in 12/28/24 22:11 Respiratory Assessment Respiratory Assessment - bonding machine tender: Respiratory Tract Infection Hx - bonding machine tender Hx Respiratory Tract Infection No 05/16/25 12:20 STOP Sleep Apnea STOP Sleep Apnea - bonding machine tender: STOP Sleep Apnea - bonding machine tender Hx Hypertension Yes 05/16/25 12:20 Hx Sleep Apnea No 05/16/25 12:20 CPAP BIPAP Do you snore loudly (louder No 05/16/25 12:20 than talking or can be heard Do you often feel tired/ Yes 05/16/25 12:20 fatigued/ sleepy during daytime? Has anyone observed you stop No 05/16/25 12:20 breathing during sleep? STOP Results Positive 05/16/25 12:20 QUESTION #5 FULL TEXT : Do you snore loudly (louder than talking or can be heard through closed doors)? 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 Specify any problems Hx of Preganancy in last 3 No 05/16/25 12:20 Months Nurse Filling Out Transfusion [facility] 05/16/25 12:20 & Questions: Date: 05/16/25 05/16/25 12:20 Time: 12:05/16/25 12:20 Patient unable to answer at this time (ie. confused, unrespo /Reproduction History /Reproductive History - bonding machine tender: /Reproductive Hx- bonding machine tender Hx Now No 05/16/25 12:20 Gestational Age (in weeks): EDC: Hx Hx Para Hx Section SAB No 05/16/25 12:20 PFSH Medical History (Updated 05/16/25 @ 12:39 by Jocelyn Byrnes) History of echocardiogram Wears glasses Wears dentures Post-menopausal Cancer Insulin dependent diabetes mellitus Diabetes Walker as ambulation aid Gout History of renal disease Back pain Injury of back Injury of head and neck Stroke/cerebrovascular accident Dietary restriction Smoker Leg cramps History of pain when walking History of CHF (congestive heart failure) PFO (patent foramen ovale) TIA (transient ischemic attack) GERD (gastroesophageal reflux disease) HTN (hypertension) Diabetes mellitus, type 2 Anxiety Depression COPD (chronic obstructive pulmonary disease) Hx of renal calculi Chronic neck pain Chronic back pain Home Medications ?Medication ?Instructions ?Recorded ?Last Taken ?Type acetaminophen 500 mg tablet 1,000 mg PO TID PAIN 06/1712/29/23 History (Acetaminophen Extra Strength) albuterol sulfate 2.5 mg/3 mL 2.5 mg inhalation Q8H VT N 06/17/23 Unknown History (0.083 %) solution for nebulization SHORTNESS OF BREAT H/WHEEZING budesonide-formoterol HFA 160 2 puff inhalation BID SH ORTNESS OF 06/17/23 12/29/23 History mcg-4.5 mcg/actuation aerosol BREATH inhaler (Symbicort) cholecalciferol (vitamin D3) 125 125 mcg PO TU SUPPLEM ENT 06/17/23 12/28/23 History mcg (5,000 unit) tablet (Vitamin D3) dapagliflozin propanediol 10 mg 10 mg PO DAILY BLOOD S UGARS 06/17/23 12/29/23 History tablet (Farxiga) fenofibrate nanocrystallized 48 mg 48 mg PO DAILY CHOL ESTEROL 06/17/23 12/29/23 History tablet metformin 1,000 mg tablet 1,000 mg PO BID BLOOD SUGARS 06/17/23 12/29/23 History tiotropium bromide 18 mcg capsule 1 cap inhalation LILIANA LY SHORTNESS 06/17/23 12/29/23 History with inhalation device (Spiriva OF BREATH/WHEEZING with HandiHaler) tizanidine 4 mg tablet 4 mg PO TID MUSCLE SPASMS 12/29/23 History atorvastatin 80 mg tablet 80 mg PO QHS 30 days #30 tab s 06/19/23 12/28/23 Rx clopidogrel 75 mg tablet (Plavix) 75 mg PO DAILY BLOOD THINNER #30 06/19/23 12/29/23 Rx tabs pantoprazole 40 mg tablet,delayed 40 mg PO DAILY ACID REFLUX #30 tabs 06/19/23 12/29/23 Rx release (Protonix) coenzyme Q10 100 mg capsule (Co 100 mg PO DAILY SUPPLE MENT 12/29/23 12/29/23 History Q-10) insulin glargine 100 unit/mL (3 38 unit subcut QHS RAJENDRA BETES 12/29/23 12/27/23 History mL) subcutaneous pen (Lantus Solostar U-100 Insulin) polyethylene glycol 3350 17 17 g PO Q24H CONSTIPATION 12/29/23 12/29/23 History gram/dose oral powder furosemide 40 mg tablet 40 mg PO DAILY 12/18/24 Unkn own History magnesium oxide 400 mg (241.3 mg 400 mg PO DAILY 12/18 Unknown History magnesium) tablet mirtazapine 7.5 mg tablet 7.5 mg PO QHS 12/18/24 Unkno wn History venlafaxine 37.5 mg 37.5 mg PO DAILY 12/18/24 Un known History capsule,extended release 24 hr metformin 1,000 mg tablet 1,000 mg PO BID 04/02/25 Unk nown History ondansetron 4 mg disintegrating 4 mg PO Q8H 04/02/25 U nknown History tablet peg 3350-electrolytes 236 240 ml PO Q10M #4,000 mL Unknown Rx gram-22.74 gram-6.74 gram-5.86 gram solution (Golytely) albuterol sulfate 90 mcg/actuation 2 inh inhalation Q4 H PRN shortness 05/16/25 Unknown History aerosol inhaler of breath or wheezing venlafaxine 75 mg capsule,extended 75 mg PO DAILY 04/24 12/15 Unknown History release 24 hr Allergy/AdvReac Type Severity Reaction Status Date / Time codeine Allergy Intermediate Rash Verified 05/16/25 12:14 Sulfa (Sulfonamide Allergy Rash Verified 05/16/25 12:14 Antibiotics) Family History Other Back pain with history of spinal surgery Surgical History (Updated 05/16/25 @ 12:25 by Jocelyn Byrnes) History of hysterectomy History of laparoscopic cholecystectomy History of cataract surgery History of extracorporeal shockwave lithotripsy (ESWL) History of back surgery Social History Smoking Status: Current every day smoker tobacco type: cigarettes Audit: Pertinent Findings Pertinent Findings EKG Perinent findings: ECG 28 Dec 2024. Normal sinus rhythm. Echo (EF%) pertinent findings: Echo 06/17/2023. The left ventricular ejection fraction is 65%. Mild concentric left ventricular hypertrophy. Recommendation Anesthesia Recommendation Anesthesia recommendation: OPTIMIZED for anesthesia
[2025-05-22] VITALS (7 sets, daily range): BP systolic 96–125; BP diastolic 55–64; PULSE 83–100; RESP 16–18; TEMP 36.5–36.8; O2SAT 93–98; BMI 26.4
[2025-05-22] MEDS: Lactated Ringers 1,000 ML 15 ML IV (11:22)
--- NOTE | 2025-05-22 11:31 | PCM.PRE.AN2 ---
ASA Classification* ASA Classification ASA Classification: 3 Assessment & Plan Anesthesia* Anesthesia Assessment Anesthesia Assessment: Discussed sedation and/or anesthesia options, risks, benefits, and alternatives with patient/parents/legal guardian/POA. Questions invited. The patient/parents/legal guardian/POA seems to understand and agrees to proceed with anesthesia plan. Reviewed the physical assessment, medical history, allergy history and patient home medications list prior to surgery/procedure/anesthetic and documented any changes. Performed airway and anesthesia risk assessments. Anesthesia Type Anesthesia Type: MAC History Source History Obtained from:: Patient and Chart Anesthesia Focused Assessment* Temperature: 98.3 F Pulse Rate: 100 Blood Pressure: 125/64 Respiratory Rate: 18 Pulse Ox: 98 Oxygen Delivery Method: Room Air Airway Assessment Mouth opens: >3 cm Mallampati Score: I Teeth Condition: Dentures (Patient has full dentures. They are out.) Neck Range of motion (ROM): Limited ROM (Severe Restriction) Labs Anesthesia Preop lab: CBC WBC, (4.4-11.0) 4.9 K/mm3 12/28/24, 22:25 RBC, (4.2-5.4) 3.89 M/mm3 L 12/28/24, 22:25 Hgb, (12.0-15.0) 8.8 g/dL L 12/28/24, 22:25 Hct, (37-47) 29.3 % L 12/28/24, 22:25 Plt Count, (150-450) 310 K/mm3 12/28/24, 22:25 CHEMISTRY Potassium, (3.3-5.1) 4.2 mmol/L 12/28/24, 22:25 Sodium, (133-145) 137 mmol/L 12/28/24, 22:25 BUN, (4-19) 21 mg/dL H 12/28/24, 22:25 Creatinine, (0.70-1.20) 1.24 mg/dL H 12/28/24, 22:25 Glucose, (70-99) 137 mg/dL H 12/28/24, 22:25 POC Glucose, (74-106) 145 mg/dL H 12/28/24, 23:41 TSH, (0.358-3.74) 3.25 uIU/mL 06/18/23, 07:02 COAG Pre-Assessment Diagnosis/Proposed Procedure Planned Operative Procedure(s): COLONOSCOPY Anesthesia History Anesthesia History - machine ii trimmer: Anesthesia History - machine ii trimmer Hx Hospitalization No 05/16/25 12:20 Any Problems With Anesthesia PONV 05/16/25 12:20 Cholinesterase deficiency No 05/16/25 12:20 You/Your Family Experience No 05/16/25 12:20 fever (hyperthermia) with Relationship Recent Exposure to Contagious No 05/22/25 11:10 Disease Does patient have nerve Yes: BLADDER STIMULATOR- 05/16/25 12:20 stimulator BRING CONTROL DOS Patient instructed to have device shut off --Does patient have Pacemaker No 05/22/25 11:10 or ICD? When Was Last Pacemaker Check QUESTION #4 FULL TEXT: You/Your Family Experience fever (hyperthermia) with Anesthesia Last Oral Intake Last Oral intake: Last Oral Intake NPO since 06:00 05/22/25 11:10 Meds taken in AM with sips of Yes 05/22/25 11:10 water? Meds patient instructed to see medlist 05/22/25 11:10 take am of surgery Any additional information?: Yes Meds taken in AM with sips of water?: Yes PONV PONV - machine ii trimmer: PONV - machine ii trimmer Female Yes 05/16/25 12:20 HX of Motion Sickness No 05/16/25 12:20 HX of N/V After Surgery No 05/16/25 12:20 Non-Smoker No 05/16/25 12:20 Duration of Surgery greater No 05/16/25 12:20 than 60 minutes Number of Risk Factors 1 05/16/25 12:20 PONV Score Low Risk 05/16/25 12:20 Height & Weight Height & Weight: Anesthesia: Height & Weight Height 4 ft 11 in 05/22/25 11:10 Weight: 59.3 kg 05/22/25 11:10 Body Mass Index (BMI) 26.4 05/22/25 11:10 Respiratory Assessment Respiratory Assessment - machine ii trimmer: Respiratory Tract Infection Hx - machine ii trimmer Hx Respiratory Tract Infection No 05/16/25 12:20 STOP Sleep Apnea STOP Sleep Apnea - machine ii trimmer: STOP Sleep Apnea - machine ii trimmer Hx Hypertension Yes 05/16/25 12:20 Hx Sleep Apnea No 05/16/25 12:20 CPAP BIPAP Do you snore loudly (louder No 05/16/25 12:20 than talking or can be heard Do you often feel tired/ Yes 05/16/25 12:20 fatigued/ sleepy during daytime? Has anyone observed you stop No 05/16/25 12:20 breathing during sleep? STOP Results Positive 05/16/25 12:20 QUESTION #5 FULL TEXT : Do you snore loudly (louder than talking or can be heard through closed doors)? 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 Specify any problems Hx of Preganancy in last 3 No 05/16/25 12:20 Months Nurse Filling Out Transfusion [email or web address] 05/16/25 12:20 & Questions: Date: 05/16/25 05/16/25 12:20 Time: 12:26 05/16/25 12:20 Patient unable to answer at this time (ie. confused, unrespo /Reproduction History /Reproductive History - machine ii trimmer: /Reproductive Hx- machine ii trimmer Hx Now No 05/16/25 12:20 Gestational Age (in weeks): EDC: Hx Hx Para Hx Section SAB No 05/16/25 12:20 Active Medications Active Medications: Current Medications Generic Name Dose Route Start Last Admin Trade Name Freq PRN Reason Stop Dose Admin Lactated Ringer's 1,000 mls @ 15 mls/hr 05/22/25 11:00 05/22/25 11:22 IV 15 mls/hr .Q48H MARCY Administration PFSH Medical History History of echocardiogram Wears glasses Wears dentures Post-menopausal Cancer Insulin dependent diabetes mellitus Diabetes Walker as ambulation aid Gout History of renal disease Back pain Injury of back Injury of head and neck Stroke/cerebrovascular accident Dietary restriction Smoker Leg cramps History of pain when walking History of CHF (congestive heart failure) PFO (patent foramen ovale) TIA (transient ischemic attack) GERD (gastroesophageal reflux disease) HTN (hypertension) Diabetes mellitus, type 2 Anxiety Depression COPD (chronic obstructive pulmonary disease) Hx of renal calculi Chronic neck pain Chronic back pain Home Medications ?Medication ?Instructions ?Recorded ?Last Taken ?Type acetaminophen 500 mg tablet 1,000 mg PO TID PAIN 06/17/23 12/29/23 History (Acetaminophen Extra Strength) albuterol sulfate 2.5 mg/3 mL 2.5 mg inhalation Q8H PRN 06/17/23 Unknown History (0.083 %) solution for nebulization SHORTNESS OF BREATH/WHEEZING budesonide-formoterol HFA 160 2 puff inhalation BID SHORTNESS OF 06/17/23 12/29/23 History mcg-4.5 mcg/actuation aerosol BREATH inhaler (Symbicort) cholecalciferol (vitamin D3) 125 125 mcg PO TU SUPPLEMENT 06/17/23 12/28/23 History mcg (5,000 unit) tablet (Vitamin D3) dapagliflozin propanediol 10 mg 10 mg PO DAILY BLOOD SUGARS 06/17/23 05/18/25 History tablet (Farxiga) fenofibrate nanocrystallized 48 mg 48 mg PO DAILY CHOLESTEROL 06/17/23 12/29/23 History tablet metformin 1,000 mg tablet 1,000 mg PO BID BLOOD SUGARS 06/17/23 12/29/23 History tiotropium bromide 18 mcg capsule 1 cap inhalation DAILY SHORTNESS 06/17/23 12/29/23 History with inhalation device (Spiriva OF BREATH/WHEEZING with HandiHaler) tizanidine 4 mg tablet 4 mg PO TID MUSCLE SPASMS 06/17/23 12/29/23 History atorvastatin 80 mg tablet 80 mg PO QHS 30 days #30 tabs 06/19/23 12/28/23 Rx clopidogrel 75 mg tablet (Plavix) 75 mg PO DAILY BLOOD THINNER #30 06/19/23 05/15/25 Rx tabs pantoprazole 40 mg tablet,delayed 40 mg PO DAILY ACID REFLUX #30 tabs 06/19/23 05/22/25 Rx release (Protonix) coenzyme Q10 100 mg capsule (Co 100 mg PO DAILY SUPPLEMENT 12/29/23 12/29/23 History Q-10) insulin glargine 100 unit/mL (3 38 unit subcut QHS DIABETES 12/29/23 12/27/23 History mL) subcutaneous pen (Lantus Solostar U-100 Insulin) polyethylene glycol 3350 17 17 g PO Q24H CONSTIPATION 12/29/23 12/29/23 History gram/dose oral powder furosemide 40 mg tablet 40 mg PO DAILY 12/18/24 Unknown History magnesium oxide 400 mg (241.3 mg 400 mg PO DAILY 12/18/24 Unknown History magnesium) tablet mirtazapine 7.5 mg tablet 7.5 mg PO QHS 12/18/24 Unknown History venlafaxine 37.5 mg 37.5 mg PO DAILY 12/18/24 Unknown History capsule,extended release 24 hr metformin 1,000 mg tablet 1,000 mg PO BID 04/02/25 Unknown History ondansetron 4 mg disintegrating 4 mg PO Q8H 04/02/25 Unknown History tablet peg 3350-electrolytes 236 240 ml PO Q10M #4,000 mL 04/12/25 Unknown Rx gram-22.74 gram-6.74 gram-5.86 gram solution (Golytely) albuterol sulfate 90 mcg/actuation 2 inh inhalation Q4H PRN shortness 05/16/25 Unknown History aerosol inhaler of breath or wheezing venlafaxine 75 mg capsule,extended 75 mg PO DAILY 05/16/25 Unknown History release 24 hr Allergy/AdvReac Type Severity Reaction Status Date / Time codeine Allergy Intermediate Rash Verified 05/22/25 11:08 Sulfa (Sulfonamide Allergy Rash Verified 05/22/25 11:08 Antibiotics) Family History Other Back pain with history of spinal surgery Surgical History History of hysterectomy History of laparoscopic cholecystectomy History of cataract surgery History of extracorporeal shockwave lithotripsy (ESWL) History of back surgery Social History Smoking Status: Current every day smoker tobacco type: cigarettes Review of Systems (Anesthesia) ROS Narrative System reviewed and no additional complaints, except as documented.
--- NOTE | 2025-05-22 12:01 | HP.PCM_ITS ---
HPI - General General Date of Admission: 05/22/25 Date of Service: 05/22/25 Chief Complaint: constipation HPI Narrative DOMINIK SCHULER, is a 65 F who presents with Chief Complaint: Constipation Patient presenting to the office today for evaluation of her constipation. Patient has a long history of constipation. She takes MiraLAX daily which produces a bowel movement daily. She will go off MiraLAX on occasion but then go back on when her constipation starts to get bad again. She does have abdominal pain which she believes to be from her kidney stones. She has loose stool about 1 time per month. Does not feel certain foods are trigger to any of her abdominal symptoms. She has a history of heartburn and is on pantoprazole. She does get breakthrough heartburn on occasion. She has difficulty swallowing seldom. Foods that she has difficulty with are tough meats and breads. Last colonoscopy was about 5 years ago. She denies family history of colon cancer. peg 3350-electrolytes 236-22.74-6.74 -5.86 gram (Golytely) until fecal effluent is clear 240 mL PO Q10M 4,000 mL 0RF ] PFSH Medical History History of echocardiogram Wears glasses Wears dentures Post-menopausal Cancer Insulin dependent diabetes mellitus Diabetes Walker as ambulation aid Gout History of renal disease Back pain Injury of back Injury of head and neck Stroke/cerebrovascular accident Dietary restriction Smoker Leg cramps History of pain when walking History of CHF (congestive heart failure) PFO (patent foramen ovale) TIA (transient ischemic attack) GERD (gastroesophageal reflux disease) HTN (hypertension) Diabetes mellitus, type 2 Anxiety Depression COPD (chronic obstructive pulmonary disease) Hx of renal calculi Chronic neck pain Chronic back pain Home Medications ?Medication ?Instructions ?Recorded ?Last Taken ?Type acetaminophen 500 mg tablet 1,000 mg PO TID PAIN 06/1712/29/23 History (Acetaminophen Extra Strength) albuterol sulfate 2.5 mg/3 mL 2.5 mg inhalation Q8H NJ N 06/17/23 Unknown History (0.083 %) solution for nebulization SHORTNESS OF BREAT H/WHEEZING budesonide-formoterol HFA 160 2 puff inhalation BID SH ORTNESS OF 06/17/23 12/29/23 History mcg-4.5 mcg/actuation aerosol BREATH inhaler (Symbicort) cholecalciferol (vitamin D3) 125 125 mcg PO TU SUPPLEM ENT 06/17/23 12/28/23 History mcg (5,000 unit) tablet (Vitamin D3) dapagliflozin propanediol 10 mg 10 mg PO DAILY BLOOD S UGARS 06/17/23 05/18/25 History tablet (Farxiga) fenofibrate nanocrystallized 48 mg 48 mg PO DAILY CHOL ESTEROL 06/17/23 12/29/23 History tablet metformin 1,000 mg tablet 1,000 mg PO BID BLOOD SUGARS 06/17/23 12/29/23 History tiotropium bromide 18 mcg capsule 1 cap inhalation LILIANA LY SHORTNESS 06/17/23 12/29/23 History with inhalation device (Spiriva OF BREATH/WHEEZING with HandiHaler) tizanidine 4 mg tablet 4 mg PO TID MUSCLE SPASMS 12/29/23 History atorvastatin 80 mg tablet 80 mg PO QHS 30 days #30 tab s 06/19/23 12/28/23 Rx clopidogrel 75 mg tablet (Plavix) 75 mg PO DAILY BLOOD THINNER #30 06/19/23 05/15/25 Rx tabs pantoprazole 40 mg tablet,delayed 40 mg PO DAILY ACID REFLUX #30 tabs 06/19/23 05/22/25 Rx release (Protonix) coenzyme Q10 100 mg capsule (Co 100 mg PO DAILY SUPPLE MENT 12/29/23 12/29/23 History Q-10) insulin glargine 100 unit/mL (3 38 unit subcut QHS RAJENDRA BETES 12/29/23 12/27/23 History mL) subcutaneous pen (Lantus Solostar U-100 Insulin) polyethylene glycol 3350 17 17 g PO Q24H CONSTIPATION 12/29/23 12/29/23 History gram/dose oral powder furosemide 40 mg tablet 40 mg PO DAILY 12/18/24 Unkn own History magnesium oxide 400 mg (241.3 mg 400 mg PO DAILY 12/18 Unknown History magnesium) tablet mirtazapine 7.5 mg tablet 7.5 mg PO QHS 12/18/24 Unkno wn History venlafaxine 37.5 mg 37.5 mg PO DAILY 12/18/24 Un known History capsule,extended release 24 hr metformin 1,000 mg tablet 1,000 mg PO BID 04/02/25 Unk nown History ondansetron 4 mg disintegrating 4 mg PO Q8H 04/02/25 U nknown History tablet peg 3350-electrolytes 236 240 ml PO Q10M #4,000 mL Unknown Rx gram-22.74 gram-6.74 gram-5.86 gram solution (Golytely) albuterol sulfate 90 mcg/actuation 2 inh inhalation Q4 H PRN shortness 05/16/25 Unknown History aerosol inhaler of breath or wheezing venlafaxine 75 mg capsule,extended 75 mg PO DAILY 04/24 12/15 Unknown History release 24 hr Allergy/AdvReac Type Severity Reaction Status Date / Time codeine Allergy Intermediate Rash Verified 05/22/25 11:08 Sulfa (Sulfonamide Allergy Rash Verified 05/22/25 11:08 Antibiotics) Family History Other Back pain with history of spinal surgery Surgical History History of hysterectomy History of laparoscopic cholecystectomy History of cataract surgery History of extracorporeal shockwave lithotripsy (ESWL) History of back surgery Social History Smoking Status: Current every day smoker (Patient smoked today.) tobacco type: cigarettes ROS Constitutional Constitutional: Denies fatigue, fever(s), poor appetite, weight gain or weight loss Gastrointestinal Gastrointestinal: Denies belching, bloating, change in bowel habits, change in stool character, chewing difficulty, coffee ground emesis, constipation, cramping, diarrhea, dyspepsia, dysphagia, early satiety, excessive flatus, fecal incontinence, heartburn, hematemesis, hematochezia, hemorrhoids, loose stools, melena, nausea, odynophagia, rectal bleeding, tenesmus, vomiting or weight changes Vital Signs Vital Signs Vital Signs: 05/22/25 11:10 05/22/25 11:10 05/22/25 11:37 Temperature 98.3 F 98.3 F Temperature Source Temporal Pulse Rate 100 100 Respiratory Rate 18 18 Respiratory Pattern Normal Blood Pressure 125/64 H 125/64 H Blood Pressure Mean 84 Blood Pressure Source Monitor Blood Pressure Position Sitting Blood Pressure Location Right Arm Pulse Ox 98 98 Oxygen Delivery Method Room Air Room Air Weight Weight: 130 lb 11.746 oz Body Mass Index (BMI) 26.4 Physical Exam Const alert, oriented x3, no apparent distress and healthy appearing General Appearance: cooperative GI normal to inspection, nondistended, normoactive bowel sounds, soft to palpation, non-tender and non-distended Percussion: normal to percussion Rectal Exam: deferred Results Lab / Micro Data Labs: Laboratory Results - last 24 hr 05/22/25 11:17: POC Glucose 217 H Assessment & Plan Assessment/Plan (1) Constipation: PLAN: Assessment and Plan Assessment and Plan (1) GERD (gastroesophageal reflux disease): Status: Acute Plan: Dominik is a 65-year-old female patient with past medical history of CVA, TIA, hypertension, diabetes, COPD and renal calculi here today for evaluation of constipation. Patient has chronic constipation for many years and takes MiraLAX daily. This is sufficient to control her constipation and produces a bowel movement daily. Her last colonoscopy was about 5 years ago and notes that it is time for repeat. She is comfortable with continuing her bowel regimen of MiraLAX daily. If her constipation ever becomes refractory we will consider treatment with Linzess or other secretagogue. Patient also with a history of heartburn on pantoprazole daily. She does have some intermittent breakthrough heartburn related to certain foods she may eat. She also endorses occasional issues with swallowing certain foods such as bread. She does not wish to undergo EGD at this time. She was scheduled for colonoscopy. - Colonoscopy - Continue MiraLAX - Follow-up after procedure (2) Constipation: Status: Acute Medications: New
--- NOTE | 2025-05-22 12:34 | OP.COLON_ITS ---
Patient Name: Radha Mendez Procedure Date: 05/22/2025 12:04 PM Date of : 1960 Age: 65 Procedure: Colonoscopy Indications: Screening for colorectal malignant neoplasm Providers: Osmani Polanco DO Medicines: Monitored Anesthesia Care Patient Profile: This is a 65 year old female. Refer to note in patient chart for documentation of history and physical. Last Colonoscopy: several years ago. Complications: No immediate complications. Procedure: Pre-Anesthesia Assessment: - Prior to the procedure, a History and Physical was performed, and patient medications and allergies were reviewed. The patient is competent. The risks and benefits of the procedure and the sedation options and risks were discussed with the patient. All questions were answered and informed consent was obtained. Patient identification and proposed procedure were verified by the physician in the pre-procedure area. Mental Status Examination: alert and oriented. Airway Examination: normal oropharyngeal airway and neck mobility. Respiratory Examination: clear to auscultation. CV Examination: normal. ASA Grade Assessment: II - A patient with mild systemic disease. After reviewing the risks and benefits, the patient was deemed in satisfactory condition to undergo the procedure. The anesthesia plan was to use monitored anesthesia care (MAC). Immediately prior to administration of medications, the patient was re-assessed for adequacy to receive sedatives. The heart rate, respiratory rate, oxygen saturations, blood pressure, adequacy of pulmonary ventilation, and response to care were monitored throughout the procedure. The physical status of the patient was re-assessed after the procedure. After I obtained informed consent, the scope was passed under direct vision. Throughout the procedure, the patient's blood pressure, pulse, and oxygen saturations were monitored continuously. The colonoscope was introduced through the anus and advanced to the hepatic flexure. The colonoscopy was performed without difficulty. The patient tolerated the procedure well. The quality of the bowel preparation was poor. The rectum was photographed. Scope In: 12:20:14 PM Scope Out: 12:21:15 PM Total Procedure Duration Time 0 hours 1 minute 1 second Findings: The perianal and digital rectal examinations were normal. Copious quantities of liquid semi-liquid semi-solid stool was found in the entire colon, precluding visualization. Lavage of the area was performed using greater than 500 mL of sterile water, resulting in incomplete clearance with continued poor visualization. Impression: - Preparation of the colon was poor. - Stool in the entire examined colon. - No specimens collected. Recommendation: - Discharge patient to home. - Resume previous diet. - Continue present medications. - Repeat colonoscopy because the bowel preparation was poor. Procedure Code(s): --- Professional --- 35897, 53, Colonoscopy, flexible; diagnostic, including collection of specimen(s) by brushing or washing, when performed (separate procedure) CPT copyright 2021 [employer]. All rights reserved. The codes documented in this report are preliminary and upon news videotape editor review may be revised to meet current compliance requirements. Osmani Polanco DO 05/22/2025 12:34:23 PM This report has been signed electronically. Number of Addenda: 0 Note Initiated On: 05/22/2025 12:04 PM
--- NOTE | 2025-05-22 12:35 | OP.PROVAT_ITS ---
05/22/2025 Geraldine Jiménez Re : Colonoscopy procedure for Radha Mendez Dear Tino This procedure was performed on Thursday, May 22, 2025. My impressions and recommendations are as follows: Impressions : - Preparation of the colon was poor. - Stool in the entire examined colon. - No specimens collected. Recommendations : - Discharge patient to home. - Resume previous diet. - Continue present medications. - Repeat colonoscopy because the bowel preparation was poor. My findings are described in the full procedure note, which is enclosed. If I can be of further assistance, please feel free to contact me at . Sincerely, Osmani Polanco, 05/22/2025 12:34:23 PM This report has been signed electronically.
--- NOTE | 2025-05-22 12:35 | PCM.POST.ANE ---
Anesthesia: Postop Eval I Current Vital Signs Temperature: 98.3 F Pulse Rate: 84 Blood Pressure: 108/57 Respiratory Rate: 16 Pulse Ox: 97 Oxygen Delivery Method: Room Air Assessment Airway patent: Yes Spontaneous unlabored respirations: Yes Mental status: Awake and Calm nausea: No Vomiting: No Anesthesia Complication: No Fluid Hydration Crystalloid volume administer (ml): 300 Total IV fluid infused: 300 Progress Note Anesthesia document: Postop Eval 1 completed: Yes
--- NOTE | 2025-05-22 21:56 | PCM.POSTANE2 ---
Anesthesia Postop Eval I Sum Postop Eval Completion status Anesthesia document: Postop Eval 1 completed: Yes Anesthesia Postop Eval I Summary Anesthesia Postop Eval I Summary: Anesthesia Postop Eval I: Assessment Summary Airway patent Yes 05/22/25 12:36 [email or web address] Spontaneous unlabored Yes 05/22/25 12:36 [email or web address] respirations Mental status Awake,Calm 05/22/25 12:36 [email or web address] nausea No 05/22/25 12:36 [email or web address] Vomiting No 05/22/25 12:36 [email or web address] Anesthesia Postop Eval I: Fluid Summary Crystalloid volume administer 300 05/22/25 12:36 [email or web address] (ml) Colloids volume administered ( ml) Blood Product volume administered (ml) Total IV fluid infused 300 05/22/25 12:36 [email or web address] Anesthesia Postop Eval I: Summary Notes Anesthesia Complication No 05/22/25 12:36 [email or web address] Anesthesia Complication Comment: Post-operative progress note Anesthesia: Postop Eval II Evaluation Mental status: Awake and Calm Pain Level: 0 nausea: No Vomiting: No Complications Anesthesia Complication: No
== END 2025-05-22 13:17 | disposition home or self-care (01) ==
LOC: EN 10:55 → AC 10:57
PROVIDERS: PCP Nurse Practitioner Adult Health; Referring Provider Nurse Practitioner Adult Health; Visit Provider Internal Medicine Gastroenterology
PROC: 0DJD8ZZ Inspection of Lower Intestinal Tract, Via Natural or Artificial Opening Endoscopic (ICD-10-PCS; CPT 45378; principal; 2025-05-22 11:55)
DX: K59.00 Constipation, unspecified (principal); I11.0 Hypertensive heart disease with heart failure; I50.9 Heart failure, unspecified; J44.9 Chronic obstructive pulmonary disease, unspecified; Z79.4 Long term (current) use of insulin; E11.9 Type 2 diabetes mellitus without complications; Z79.84 Long term (current) use of oral hypoglycemic drugs; K21.9 Gastro-esophageal reflux disease without esophagitis; Z90.710 Acquired absence of both cervix and uterus; Z79.899 Other long term (current) drug therapy; Z86.73 Personal history of transient ischemic attack (TIA), and cerebral infarction without residual deficits; Z79.51 Long term (current) use of inhaled steroids; Z79.02 Long term (current) use of antithrombotics/antiplatelets; F41.9 Anxiety disorder, unspecified; F32.A Depression, unspecified; Z90.49 Acquired absence of other specified parts of digestive tract; F17.210 Nicotine dependence, cigarettes, uncomplicated
CPT/HCPCS: 45378; 82962; J2405

== ENCOUNTER 2025-07-02 15:52 | Emergency (ER) | payer MEDICARE, MEDICAID, SELFPAY ==
[2025-07-02 15:56] VITALS: BP 167/59; PULSE 93; RESP 16; TEMP 36.8; O2SAT 97; BMI 27.8
--- NOTE | 2025-07-02 16:08 | ED.VIS.FALL ---
HPI HPI - Fall History of Present Illness Chief Complaint: Fall Informant: patient and EMS Narrative Narrative: 65-year-old female presenting to the emergency room following a fall. Patient states she was outside smoking a cigarette got up to go back inside and her rollator caught on the concrete and she fell forward. She states that she fell off to the side injuring the left hip and left shoulder and striking her head on the ground. She notes some generalized neck pain with movement. No reported loss of consciousness. Patient does take Plavix. She notes a prior history of neck fracture and surgery. No vomiting. She was assisted off the ground by a bystander and was able to bear weight. [facility] Medical History History of echocardiogram Wears glasses Wears dentures Post-menopausal Cancer Insulin dependent diabetes mellitus Diabetes Walker as ambulation aid Gout History of renal disease Back pain Injury of back Injury of head and neck Stroke/cerebrovascular accident Dietary restriction Smoker Leg cramps History of pain when walking History of CHF (congestive heart failure) PFO (patent foramen ovale) TIA (transient ischemic attack) GERD (gastroesophageal reflux disease) HTN (hypertension) Diabetes mellitus, type 2 Anxiety Depression COPD (chronic obstructive pulmonary disease) Hx of renal calculi Chronic neck pain Chronic back pain Home Medications ?Medication ?Instructions ?Recorded ?Last Taken ?Type acetaminophen 500 mg tablet 1,000 mg PO TID PAIN 06/17/23 12/29/23 History (Acetaminophen Extra Strength) albuterol sulfate 2.5 mg/3 mL 2.5 mg inhalation Q8H PRN 06/17/23 Unknown History (0.083 %) solution for nebulization SHORTNESS OF BREATH/WHEEZING budesonide-formoterol HFA 160 2 puff inhalation BID SHORTNESS OF 06/17/23 12/29/23 History mcg-4.5 mcg/actuation aerosol BREATH inhaler (Symbicort) cholecalciferol (vitamin D3) 125 125 mcg PO TU SUPPLEMENT 06/17/23 12/28/23 History mcg (5,000 unit) tablet (Vitamin D3) dapagliflozin propanediol 10 mg 10 mg PO DAILY BLOOD SUGARS 06/17/23 05/18/25 History tablet (Farxiga) fenofibrate nanocrystallized 48 mg 48 mg PO DAILY CHOLESTEROL 06/17/23 12/29/23 History tablet tiotropium bromide 18 mcg capsule 1 cap inhalation DAILY SHORTNESS 06/17/23 12/29/23 History with inhalation device (Spiriva OF BREATH/WHEEZING with HandiHaler) tizanidine 4 mg tablet 4 mg PO TID MUSCLE SPASMS 06/17/23 12/29/23 History atorvastatin 80 mg tablet 80 mg PO QHS 30 days #30 tabs 06/19/23 12/28/23 Rx clopidogrel 75 mg tablet (Plavix) 75 mg PO DAILY BLOOD THINNER #30 06/19/23 05/15/25 Rx tabs pantoprazole 40 mg tablet,delayed 40 mg PO DAILY ACID REFLUX #30 tabs 06/19/23 05/22/25 Rx release (Protonix) coenzyme Q10 100 mg capsule (Co 100 mg PO DAILY SUPPLEMENT 12/29/23 12/29/23 History Q-10) insulin glargine 100 unit/mL (3 42 unit subcut QHS DIABETES 12/29/23 12/27/23 History mL) subcutaneous pen (Lantus Solostar U-100 Insulin) polyethylene glycol 3350 17 17 g PO Q24H CONSTIPATION 12/29/23 12/29/23 History gram/dose oral powder furosemide 40 mg tablet 40 mg PO DAILY 12/18/24 Unknown History magnesium oxide 400 mg (241.3 mg 400 mg PO DAILY 12/18/24 Unknown History magnesium) tablet mirtazapine 7.5 mg tablet 7.5 mg PO QHS 12/18/24 Unknown History venlafaxine 37.5 mg 37.5 mg PO DAILY 12/18/24 Unknown History capsule,extended release 24 hr metformin 1,000 mg tablet 1,000 mg PO BID 04/02/25 Unknown History ondansetron 4 mg disintegrating 4 mg PO DAILY 04/02/25 Unknown History tablet peg 3350-electrolytes 236 240 ml PO Q10M #4,000 mL 04/12/25 Unknown Rx gram-22.74 gram-6.74 gram-5.86 gram solution (Golytely) albuterol sulfate 90 mcg/actuation 2 inh inhalation Q4H PRN shortness 05/16/25 Unknown History aerosol inhaler of breath or wheezing venlafaxine 75 mg capsule,extended 75 mg PO DAILY 05/16/25 Unknown History release 24 hr guaifenesin 400 mg tablet (Chest 400 mg PO TID PRN congestion 07/02/25 Unknown History Congestion Relief) Allergy/AdvReac Type Severity Reaction Status Date / Time codeine Allergy Intermediate Rash Verified 07/02/25 15:56 Sulfa (Sulfonamide Allergy Rash Verified 07/02/25 15:56 Antibiotics) Family History Other Back pain with history of spinal surgery Surgical History History of hysterectomy History of laparoscopic cholecystectomy History of cataract surgery History of extracorporeal shockwave lithotripsy (ESWL) History of back surgery Social History Smoking Status: Current every day smoker tobacco type: cigarettes ROS ROS ED Constitutional Constitutional ED: Denies chills, fever(s) or weight loss Eyes Eyes: Denies blurry vision, change in vision or diplopia ENT ENT ED: Denies ear pain, rhinorrhea or sore throat Cardiovascular Cardiovascular: Denies chest pain, orthopnea, palpitations or racing heartbeat Respiratory/Chest Respiratory/Chest: Denies cough, dyspnea or orthopnea Gastrointestinal Gastrointestinal: Denies abdominal pain, diarrhea, nausea or vomiting Genitourinary Genitourinary ED: Denies dysuria, hematuria or urinary frequency Musculoskeletal Musculoskeletal: Reports neck pain and other Details: Left shoulder left hip pain ; Denies arthralgias, back pain or myalgias Integumentary Denies abscess or rash Neurologic Neurologic: Reports headache(s); Denies paresthesias or weakness Psychiatric Psychiatric: Denies anxiety, depression, suicidal ideation or suicidal thoughts Endocrine Endocrinology: Denies polydipsia, polyphagia or polyuria Allergic/Immunologic Allergic/Immunologic ED: Denies mouth swelling, tongue swelling or urticaria EXAM Physical Exam Const Vital Signs: 07/02/25 15:56 07/02/25 15:59 Temperature 98.2 F Temperature Source Oral Pulse Rate 93 Respiratory Rate 16 Respiratory Effort Normal Respiratory Depth Normal Respiratory Pattern Normal Blood Pressure 167/59 H Blood Pressure Mean 95 Pulse Ox 97 Oxygen Delivery Method Room Air Room Air Positive well nourished and well developed General Appearance ED: well developed and NAD HEENT Reports normocephalic, TM's clear and moist mucous membranes HEENT Narrative: There is a small contusion in the left high temporal scalp. No palpable bony depression. No external bleeding. Tympanic Membrane ED: Yes TM's clear Eyes PERRL and EOMs intact bilaterally Neck full ROM, no lymphadenopathy, supple and no JVD Neck Narrative: Generally tender to palpation over the cervical paraspinal musculature General: tenderness Resp normal respiratory effort and clear to auscultation bilaterally Cardio regular rate, regular rhythm and no murmurs GI normal to inspection, nondistended, normoactive bowel sounds and non-tender Palpation: soft Back/Spine no CVA tenderness and normal ROM Extremity Extremity Narrative: Tender to palpation over the mid to lateral proximal humerus. No AC tenderness. No clavicular tenderness. No obvious deformity. Neurovascular intact distally. Painful range of motion. Tenderness palpation over the posterior greater trochanter left buttock region. No suprapubic tenderness. General Extremety ED: Negative for edema General Extremity: Negative for edema Neuro oriented x3 and CN's II-XII intact bilaterally Shalini Coma Scale: document GCS findings Spontaneous Obeys Commands Oriented 15 Sensorium / Orientation: alert Motor Exam: strength 5/5 throughout Psych mental status grossly normal Mood & Affect: Negative for depressed or tearful Skin no rashes or lesions noted and no wounds MDM MDM MDM Narrative Medical decision making narrative: Differential diagnosis includes but not limited to skull fracture facial contusion intracranial hemorrhage/hematoma myofascial strain vertebral fracture hip fracture hip contusion shoulder fracture shoulder contusion. Ligamentous and tendon injuries. Based on the history and the physical CT the brain and cervical spine was obtained as well as plain films of the left shoulder and left hip. CTs were read by radiology reviewed by myself. History & Record Review Discussion w/independent historian: EMS personnel and Patient Discharge Plan Triage Chief Complaint: Fall ED Provider: César Terrazas Dx/Rx/DC Orders Prescriptions: No Action metformin 1,000 mg tablet 1,000 mg PO BID ondansetron 4 mg tablet,disintegrating 4 mg PO DAILY peg 3350-electrolytes [Golytely] 236-22.74-6.74 -5.86 gram recon soln 240 ml PO Q10M Qty: 4000 0RF Rx Instructions: until fecal effluent is clear albuterol sulfate 2.5 mg /3 mL (0.083 %) solution for nebulization 2.5 mg inhalation Q8H PRN (Reason: SHORTNESS OF BREATH/WHEEZING ) tizanidine 4 mg tablet 4 mg PO TID fenofibrate nanocrystallized 48 mg tablet 48 mg PO DAILY budesonide-formoterol [Symbicort] 160-4.5 mcg/actuation HFA aerosol inhaler 2 puff INHALATION BID dapagliflozin propanediol [Farxiga] 10 mg tablet 10 mg PO DAILY cholecalciferol (vitamin D3) [Vitamin D3] 125 mcg (5,000 unit) tablet 125 mcg PO TU tiotropium bromide [Spiriva with HandiHaler] 18 mcg capsule, w/inhalation device 1 cap inhalation DAILY Rx Instructions: puncture 1 cap using device; one dose = 2 inhalations acetaminophen [Acetaminophen Extra Strength] 500 mg tablet 1,000 mg PO TID atorvastatin 80 mg Tablet 80 mg PO QHS 30 Days Qty: 30 0RF clopidogrel [Plavix] 75 mg tablet 75 mg PO DAILY Qty: 30 0RF pantoprazole [Protonix] 40 mg tablet,delayed release (DR/EC) 40 mg PO DAILY Qty: 30 0RF coenzyme Q10 [Co Q-10] 100 mg capsule 100 mg PO DAILY polyethylene glycol 3350 17 gram/dose powder 17 g PO Q24H insulin glargine [Lantus Solostar U-100 Insulin] 100 unit/mL (3 mL) insulin pen 42 unit SUBCUT QHS Patient Comments: adjust according to blood sugar furosemide 40 mg tablet 40 mg PO DAILY venlafaxine 37.5 mg capsule,extended release 24hr 37.5 mg PO DAILY magnesium oxide 400 mg (241.3 mg magnesium) tablet 400 mg PO DAILY mirtazapine 7.5 mg tablet 7.5 mg PO QHS albuterol sulfate 90 mcg/actuation HFA aerosol inhaler 2 inh inhalation Q4H PRN (Reason: shortness of breath or wheezing) venlafaxine 75 mg capsule,extended release 24hr 75 mg PO DAILY guaifenesin [Chest Congestion Relief] 400 mg tablet 400 mg PO TID PRN (Reason: congestion) Primary Care Provider: Geraldine Jiménez [employer] SYSTEMS ENGINEER Referrals: Geraldine Jiménez [employer] SYSTEMS ENGINEER, [employer] ENGINEER-[facility] [Primary Care Provider, Medical] Print Language: Sammarinese
--- NOTE | 2025-07-02 16:15 | CT_ITS ---
EXAM: CT/Spine Cervical without Contras
--- NOTE | 2025-07-02 16:15 | CT_ITS ---
EXAM: CT/Brain/Head without Contrast
--- NOTE | 2025-07-02 16:30 | RAD_ITS ---
PROCEDURE: RAD/HIP, UNI W/ Pelvis 2-3 Views
--- NOTE | 2025-07-02 16:30 | RAD_ITS ---
PROCEDURE: RAD/Shoulder min 2 Views
[2025-07-02] MEDS: HYDROcodone Bitartrate/Apap 5/325 Tablet PO (16:41)
[2025-07-02 17:49] VITALS: BP 132/74; PULSE 85; RESP 16; TEMP 36.6; O2SAT 95
== END 2025-07-02 18:34 | disposition home or self-care (01) ==
PROVIDERS: Emergency Provider Emergency Medicine; PCP Nurse Practitioner Adult Health; Visit Provider Emergency Medicine
DX: S00.03XA Contusion of scalp, initial encounter (principal); I11.0 Hypertensive heart disease with heart failure; I50.9 Heart failure, unspecified; J44.9 Chronic obstructive pulmonary disease, unspecified; E11.9 Type 2 diabetes mellitus without complications; Z79.02 Long term (current) use of antithrombotics/antiplatelets; F17.210 Nicotine dependence, cigarettes, uncomplicated; W01.0XXA Fall on same level from slipping, tripping and stumbling without subsequent striking against object, initial encounter; M54.2 Cervicalgia; M25.552 Pain in left hip
CPT/HCPCS: 70450; 72125; 73030; 73502; 99284